=== PATIENT | female | born 2000 | race Caucasian/White ===

== ENCOUNTER 2022-06-07 19:44 | Outpatient (CLI) | payer BC, SELFPAY ==
[2022-06-07 19:49] VITALS: BP 118/74; PULSE 120; RESP 20; TEMP 36.2; O2SAT 98; BMI 30.4
[2022-06-07 20:15] VITALS: BP 118/77; PULSE 111; RESP 20; TEMP 36.8; O2SAT 98
[2022-06-07 20:50] LABS: Clue Cells <20% Clue Cells Seen (None Seen); Trichomonas No Trichomonas Seen (None Seen); Yeast No Yeast Seen (None Seen)
[2022-06-07 20:59] LABS: Appearance Urine Clear (Clear); Bilirubin Urine Negative (Negative); Blood Urine Negative (Negative); Color Urine Yellow (Yellow); Glucose Urine Negative (Negative); Ketones Urine Negative (Negative); Leukocyte Esterase Urine Negative (Negative); Nitrite Urine Negative (Negative); Protein Urine Negative (Negative); Specific Gravity Urine 1.015 (1.000-1.030); Urobilinogen Urine 0.2 (0.2-1.0)
[2022-06-07 21:00] LABS: Amnisure Rom* Negative
[2022-06-07 21:20] LABS: Fetal Fibronectin* Negative (Negative)
--- NOTE | 2022-06-07 21:58 | PC.OBNST ---
NST Note NST Note Start: 06/07/22 20:11 Freq: ONCE Status: Active Protocol: Document 06/07/22 21:53 [facility] (Rec: 06/07/22 21:54 [facility] [id number]) NST Note 3 Para (# of births) 0 EDC 08/23/22 Patient Presented with Complaint(s) of Contractions/cramping,Leaking fluid,Decreased movement Reactive Yes Appropriate for Gestational Age Yes LAQUITA Jimenez Date 06/07/22 Reactive Yes Appropriate for Gestational Age Yes LAQUITA Figueredo Date 06/07/22 OB NST charge Yes The provider's electronic signature indicates the NST is reactive/appropriate for gestational age. *Note to provider: If an addendum is required, open the patient's chart and click on the note under the Nurse/Allied Health tab.
== END 2022-06-07 21:45 | disposition home or self-care (01) ==
LOC: OB OUT 20:10 → OB 20:53
PROVIDERS: Visit Provider Family Medicine
DX: Z34.90 Encounter for supervision of normal pregnancy, unspecified, unspecified trimester (principal)
CPT/HCPCS: 59025; 81003; 84112; 87210; 99213

== ENCOUNTER 2025-02-16 20:59 | Emergency (ER) | payer BC, SELFPAY ==
--- NOTE | 2025-02-16 21:02 | ED_ITS ---
HPI - General Adult General Chief complaint: Nausea/Vomiting Stated complaint: vomiting, 6 wks preg Time Seen by Provider: 02/16/25 21:01 History of Present Illness HPI narrative: 24-year-old G4 P 1021 at approximately 6 weeks gestation who presents today with nausea vomiting. No abdominal pain, no vaginal bleeding although did note some dark discharge yesterday but that resolved. No fever chills. Has not taken anything for symptoms. Patient has ondansetron at home but has not been using it because she was not sure if it would be safe during . Related Data Home Medications ?Medication ?Instructions ?Recorded ?Confirmed UIF-szev-WM-omega 3-fat com #1 27 cap PO DAILY 06/07/22 mg-1 mg-300 mg capsule bupropion HCl 150 mg 24 hr tablet, 150 mg PO DAILY 02/16/25 02/16/25 extended release ondansetron 8 mg disintegrating 8 mg PO Q8H PRN nausea/vomiting 02/16/25 02/16/25 tablet Allergies Allergy/AdvReac Type Severity Reaction Status Date / Time amoxicillin Allergy Verified 02/16/25 21:06 Penicillins Allergy Verified 02/16/25 21:06 [facility] PFS Social History Smoking Status: Never smoker Do you use any of these nicotine containing products: None Second hand tobacco smoke exposure: No How often do you have a drink containing alcohol: never AUDIT-C Alcohol total score: 0 Non-prescribed substance use: denies use Exam Narrative: Exam Narrative: General: Well-developed and well-nourished, no acute distress Head: Atraumatic and normocephalic Eyes: Pupils are equal reactive, extraocular motions intact, conjunctiva clear ENT: External nose and ears are normal, posterior pharynx without erythema or exudate Neck: No midline cervical tenderness, full spontaneous range of motion the neck, trachea midline, no adenopathy Heart: Regular rate and rhythm no murmurs or thrills Lungs: Clear to auscultation bilaterally without wheezes or crackles Abdomen: Soft, nontender, nondistended with active bowel sounds Musculoskeletal: No tenderness, deformity, or edema Neurologic: Awake, alert, and oriented x3, no gross focal neurologic deficits, cranial nerves intact as tested Psych: Mood and affect are appropriate Skin: No rashes Const: Vital Signs, click to edit/add: Vital Signs - 24 hr 02/16/25 21:08 Temperature 97.8 F Pulse Rate [Pulse Oximeter] 80 Respiratory Rate 16 Blood Pressure [Ri ght Upper Arm] 139/90 H Pulse Oximetry 98 Oxygen Delivery Me thod Room Air Course Course ED Course: Reviewed emergency department visit from February 08 which was for back pain, at that time had an ultrasound that demonstrated an intrauterine gestational sac, quantitative hCG 6404. Repeat beta hCG on February 1107. Patient presents today with nausea vomiting, also some loose stools earlier this morning. She is concerned because she has not had much urine out today and has been vomiting fairly consistently. She denies chest pain, fever, chills, abdominal pain. No vaginal bleeding or discharge, noticed a little bit of brown discharge yesterday but that resolved. No urinary symptoms. On exam here, patient is awake alert, pleasant, vital is stable, no abdominal tenderness. Patient has a verified intrauterine and so no indication for ultrasound today. Labs are ordered along with fluids, Zofran, and Pepcid. Reevaluation(s) Time of Reevaluation #1: 21:52 Reevaluation #1: Labs independently interpreted by me, urinalysis without evidence for infection but 4+ ketones, additional fluids are ordered. Time of Reevaluation #2: 23:26 Reevaluation #2: Beta-hCG is 57,846. Updated patient with this finding, patient is stable for discharge. Vital Signs Vital signs: Initial Vital Signs Temperature 97.8 F 02/16/25 21:08 Temperature Source Temporal Artery Scan 02/16/25 21:08 Pulse Rate 80 02/16/25 21:08 Respiratory Rate 16 02/16/25 21:08 Blood Pressure 139/90 H 02/16/25 21:08 Blood Pressure Mean 106 H 02/16/25 21:08 Pulse Oximetry 98 02/16/25 21:08 Oxygen Delivery Method Room Air 02/16/25 21:08 Vital Signs Temperature 97.8 F 02/16/25 21:08 Pulse Rate 80 02/16/25 21:08 Respiratory Rate 16 02/16/25 21:08 Blood Pressure 139/90 H 02/16/25 21:08 Pulse Oximetry 98 02/16/25 21:08 Oxygen Delivery Method Room Air 02/16/25 21:08 Temperature 97.8 F 02/16/25 21:08 Pulse Rate 80 02/16/25 21:08 Respiratory Rate 16 02/16/25 21:08 Blood Pressure 139/90 H 02/16/25 21:08 Pulse Oximetry 98 02/16/25 21:08 Oxygen Delivery Method Room Air 02/16/25 21:08 Medications Administered Medications: Discontinued Medications Generic Name Dose Route Start Last Admin Trade Name Oli PRN Reason Stop Dose Admin Famotidine 20 mg 02/16/25 21:16 02/16/25 21:32 Famotidine 10 Mg/Ml Inj IVP 02/16/25 21:17 20 mg ONCE ONE Administration Sodium Chloride 1,000 mls @ 1,000 mls/hr 02/16/25 21:30 02/16/25 21:32 0.9 % Sodium Chloride 1000 Ml IV 02/16/25 22:29 1,000 mls/hr .Q1H HAYLEY Administration Lactated Ringer's 1,000 mls @ 1,000 mls/hr 02/16/25 21:55 02/16/25 22:00 Lactated Ringers 1000 Ml IV 02/16/25 22:54 Infused .Q1H HAYLEY Infusion Ondansetron HCl 4 mg 02/16/25 21:16 02/16/25 21:32 Ondansetron 2 Mg/Ml Inj IVP 02/16/25 21:17 4 mg ONCE ONE Administration Medical Decision Making Lab Data Labs: Lab Results 02/16/25 02/16/25 02/16/25 Range/Units 21:17 21:40 22:13 Sodium 136 (135-149) mmol/L Potassium 3.9 (3.6-5.1) mmol/L Chloride 102 (96-114) mmol/L Carbon Dioxide 20 (20-32) mmol/L Anion Gap 14 (7-15) mEq/L BUN 15 (5-24) mg/dL Creatinine 0.7 (0.5-1.5) mg/dL Estimated Creat Clear 129.51 Estimated GFR 124 ml/min Glucose 92 (60-115) mg/dL Calcium 9.6 (8.4-10.6) mg/dL Magnesium 1.8 (1.5-2.6) mg/dL HCG, Quant 90400.00 mIU/mL Urine Color Yellow (Yellow) Urine Appearance Cloudy A (Clear) Urine pH 6.0 (5.0-8.5) Ur Specific [place] >= 1.030 (1.000-1.030) Urine Protein 1+ A (Negative) Urine Glucose (UA) Negative (Negative) Urine Ketones 4+ A (Negative) Urine Blood Trace-lysed A (Negative) Urine Nitrite Negative (Negative) Urine Bilirubin 1+ A (Negative) Urine Urobilinogen 0.2 (0.2-1.0) Ur Leukocyte Esterase Negative (Negative) Urine RBC 2-5 A (0-2) Urine WBC 2-5 (0-5) Ur Squamous Epith Cells Moderate A (None-Few) Amorphous Sediment Few A (None) Urine Bacteria Moderate A (None) Urine Mucus Moderate A (None) Lab Acknowledgement Test Added Discharge Plan Discharge Clinical Impression: Nausea and vomiting during Patient Disposition: Home, Self-Care Instructions: Nausea and Vomiting in (ED) Additional Instructions: Frequent small meals Take Zofran as needed for nausea vomiting Follow-up with your superintendent maintenance airports or Women's Health provider this week or next week Your beta hCG today is 57,846 Activity Level: Activity as Tolerated Discharge Diet: Regular Prescriptions: No Action ondansetron 8 mg tablet,disintegrating 8 mg PO Q8H PRN (Reason: nausea/vomiting) bupropion HCl 150 mg tablet extended release 24 hr 150 mg PO DAILY OUB-tgco-OT-omega 3-fat com #1 27-1-300 mg capsule PO DAILY Follow Up/Referrals: Provider,Not a Local [Primary Care Provider] - Stand Alone Forms: MyHealth Info Instructions
--- OUTSIDE RECORDS SUMMARY | 2025-02-16 21:02 | XMS_ITS | Encounter Summary ---
Author Organization [facility] Address [address] [place] [address]. [place] [address] Care Team Providers Care Scale Reclamation Tender Name Role Phone Dakotah Winslow MD Primary Care Provider [phone] Marlyn Brown MD Primary Care Provider Unavailable April Guzman MD Primary Care Provider [phone] Que Monteiro MD Unavailable Unavaila ble Que Monteiro MD Unavailable Unavaila ble No Ref-Primary, Physician Primary Care Provider Gynecology, [facility] Obstetrics & Primary C are Provider Unavailable No Ref-Primary, Physician Primary Care Provider [facility] Primary Care Provider + Reason for Visit * Reason Onset Date Comments Outpatient 11/11/2014 iop Other Encounter Details Date Type Department Care Team (Late st Contact Info) Description 11/11/2014 Telephone [facility] Intake [address] [place] [address] Generic Behavioral IntakeMD Outpatient (iop); Social History Tobacco Use Types Packs/Day Years Used Date Smoking Tobacco: Never Assessed Comments No Sex and Gender Information Value Date Recorded Sex Assigned at Not on file Legal Sex Female 4:25 AM INSULATOR HELPER Gender Identity Not on file Sexual Orientation Not on file documented as of this encounter Miscellaneous Notes * Telephone Encounter - Glory Tam - 11/26/2014 12:33 PM CST ----- Message from Ruby Lau RN sent at 11/26/2014 12:23 PM INSULATOR HELPER ----- Regarding: Take off wait list, referral no longer interested Please take off wait list, no longer interested, going to [facility]. LATOR HELPER * Telephone Encounter - Sheila Trivedi - 11/11/2014 10:15 AM CST recvd order from dr coronado/4A for referral to [facility] IOP; completed. LATOR HELPER documented in this encounter Plan of Treatment Not on file documented as of this encounter Visit Diagnoses Not on filedocumented in this encounter Additional Health Concerns Infection Onset Date Last Indicated Resolved Time Influenza 11/06/2023 11/06/2023 11/13/2023 11:3 9 PM INSULATOR HELPER Rule Out COVID-19 08/05/2024 08/05/2024 08/06/2024 11:55 AM CDT documented as of this encounter Care Teams Scale Reclamation Tender Relationship Specialty Start Date End Date Dakotah Winslow MD [place] [id number] [place] [address] PCP - General Family Practice 10/29/13 07/25/16 Marlyn Brown MD [place] [id number] [place] [address] PCP - General Pediatrics 07/26/16 08/27/16 April Guzman MD [address] [place] [address] PCP - General sterilization specialist 08/28/16 07/18/19 Que Monteiro MD PCP - Assigned PCP 06/30/17 01/06/19 No Ref-Primary, Physician PCP - General 07/19/19 12/26/21 GynecologySis Obstetrics & PCP - General sterilization specialist 12/27/21 02/12/23 No Ref-Primary, Physician PCP - General 11/06/23 02/07/[address] [address] PCP - General 02/08/25 Que Monteiro MD Assigned PCP 06/30/17 05/28/20 documented as of this encounter
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
--- OUTSIDE RECORDS SUMMARY | 2025-02-16 21:02 | XMS_ITS | Encounter Summary ---
Author Organization [facility] Address [address] [place] [address]. [place] [address] Care Team Providers Care Midwife Practitioner Name Role Phone Marlyn Brown MD Primary Care Provider Unavailable April Guzman MD Primary Care Provider Que Monteiro MD Unavailable Unavaila ble Que Monteiro MD Unavailable Unavaila ble No Ref-Primary, Physician Primary Care Provider GynecologySis Obstetrics & Primary C are Provider Unavailable No Ref-Primary, Physician [facility] + Reason for Visit * Reason Onset Date Comments MH/CD Inpatient 08/20/2016 Encounter Details Date Type Department Care Team ([facility] st Contact Info) Description 08/20/2016 Telephone [facility] Behavioral Health Intake [address] [place] [address] Generic, Behavioral Intake, MH/CD Inpatient Social History Tobacco Use Types Packs/Day Years Used Date Smoking Tobacco: Former Alcohol Use Standard Drinks/Week Comments No 0 (1 standard drink = 0.6 oz pur e alcohol) in past Comments No Sex and Gender Information Value Date Recorded Sex Assigned at Not on file Legal Sex Female 4:25 AM PLASTICS PLATER Gender Identity Not on file Sexual Orientation Not on file documented as of this encounter Miscellaneous Notes * Telephone Encounter - KimberlyNéstor dailey - 08/20/2016 11:22 AM CDT [facility] pt [facility]. B: pt admitted to staff she was si w/ no cont for safety. Pt making statements she does not Want to live, not divulging precipitators or stressors. Dad bringing pt to er. Pt has hx etoh and mj use, last Use Saturday 08/18. [facility] for [facility] need. documented in this encounter Plan of Treatment Not on file documented as of this encounter Visit Diagnoses Not on filedocumented in this encounter Additional Health Concerns Infection Onset Date Last Indicated Resolved Time Influenza 11/06/2023 11/06/2023 11/13/2023 11:3 9 PM PLASTICS PLATER Rule Out COVID-19 08/05/2024 08/05/2024 08/06/2024 11:55 AM CDT documented as of this encounter Care Teams Midwife Practitioner Relationship Specialty Start Date End Date Marlyn Brown MD PCP - General Pediatrics 07/26/16 08/27/16 [place] [address] PCP - General tier in 08/28/16 07/18/19 Que Monteiro MD PCP - Assigned PCP 06/30/17 01/06/19 No Ref-Primary, Physician PCP - General 07/19/19 12/26/21 GynecologySis Obstetrics & PCP - General tier in 12/27/21 02/12/23 No Ref-Primary, Physician PCP - General 11/06/23 02/07/[address] [address] PCP - General 02/08/25 Que Monteiro MD Assigned PCP 06/30/17 05/28/20 documented as of this encounter
--- OUTSIDE RECORDS SUMMARY | 2025-02-16 21:02 | XMS_ITS ---
Author Organization [facility] Address [address] [place] [address] Care Team Providers Care Billet Shearer Name Role Phone None, No PCP Primary Care Provider Nino Chavez [phone] Encounters Encounter Location Date Provider Diagnosis [facility] [address] [place] [address] 01/04/2025 Nino Acosta Plan Of Treatment Next Appt Details Provider Name:Nanci Juliaclaire Fauzia cole, 02/22/2025 01:00:00 PM, [address] [place], [address], Provider Name:Nancixiang Crum Fauzia cole, 02/22/2025 01:30:00 PM, [address] [place], [address], Progress Notes * Twyla ELENAeDOB:[birth year] (24 yo F)Acc No.[id number]:01/04/2025 Patient: Tiana BRITO :2000 A ge:24 Y S ex:Female Address:[address] [place] [address] * true * Date: Generated for Printi ng/Faxing/eTransmitting on: 0 02/16/2025 09:02 PM CDT
--- OUTSIDE RECORDS SUMMARY | 2025-02-16 21:02 | XMS_ITS | Encounter Summary ---
Author Organization [facility] Address [address] [place] [address] Care Team Providers Care Car Repairer Name Role Phone Needs Pcp, Assignment Primary Care Provider [phone] Reason for Visit * Reason Comments Concerns Encounter Details Date Type Department Care Team (Late st Contact Info) Description 02/08/2025 Nurse Triage [facility] [address] Obstetrics/Gynecology [address] [place] [phone] [place] [address] [place] [address] Concerns Social History Tobacco Use Types Packs/Day Years Used Date Smoking Tobacco: Former Smokeless Tobacco: Current Alcohol Use Standard Drinks/Week Comments No 0 (1 standard drink = 0.6 oz pur e alcohol) Depression Answer Date Recor ded Last EPDS Total Score 6 12/12/2024 Last EPDS Self Harm Result Not on file 12/12 Comments No Sex and Gender Information Value Date Recorded Sex Assigned at Not on file Legal Sex Female 6:09 AM CDT Gender Identity Not on file Sexual Orientation Not on file 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 Per patient report she had POSITIVE at home UPT on 01/30/25 after missed menses. She had irregular bleeding throughout the month of December, last episode started 01/01/25. Patient states for past week she has been experiencing moderate shooting pains in her shoulder and severe lower back pain, in addition to one-sided cramping in RLQ of abdomen. Over the past week the pain has becoming increasingly worse. Currently shoulder pain rated 6-7/10 and back pain 10/10. Tylenol not effective, some improvement in back pain if someone is providing constant massage. Patient also notes intermittent dizziness with position changes or bending over for past couple weeks. Usually brief and resolves on own. Denies vaginal bleeding, severe dizziness, or fever/chills. Reviewed pertinent medical history (as relates to the call): Yes Reviewed pertinent medications (as relates to the call): Yes Reason for Disposition Shoulder pain Protocols used: - Abdominal Pain Less Than 20 Weeks [id number] documented in this encounter Plan of Treatment Upcoming Encounters Date Type Department Care Team (Late st Contact Info) Description 02/18/2025 9:00 AM CDT Appointment [facility] Obstetrics/Gynecology [address] [facility] [place] [address] Nurse Intake 4, P6500 Ob 02/26/2025 1:45 PM CDT Appointment [facility] [address] Obstetrics/Gynecology [address] [place] [address] Peri Wells, EKG/ECG TECHNICIAN, CNM [address] [place] [address] 03/22/2025 1:00 PM CDT Appointment [facility] [facility]SLIVER LAP TENDER [address] [facility], [address] [place] [address] [place] [address] [place] [phone] documented as of this encounter Visit Diagnoses Not on filedocumented in this encounter Care Teams Car Repairer Relationship Specialty Start Date End Date Needs Pcp, [place] [address] PCP - General 09/28/16 documented as of this encounter
--- OUTSIDE RECORDS SUMMARY | 2025-02-16 21:02 | XMS_ITS ---
Author Organization [facility] Former[facility] Address [address] [place] [address] Care Team Providers Care Erp Project Manager Name Role Phone None, No PCP Primary Care Provider UnavailNino Baker Unavailable [phone] Nanci Lynn Unavailable Results Component Value Reference Range Notes HEMOGLOBIN A1c Reviewed date:01/05/2025 08:39:51 AM Interpretation: Performing Lab:CB, [facility] [id number] [facility], [id number] Pavel Ervin Notes/Report: HEMOGLOBIN A1c 5.3 <5.7 % of total Hgb For the purpose of screening for the presence of diabetes: <5.7% Consistent with the absence of diabetes 5.7-6.4% Consistent with increased risk for diabetes (prediabetes) > or =6.5% Consistent with diabetes This assay result is consistent with a decreased risk of diabetes. Currently, no consensus exists regarding use of hemoglobin A1c for diagnosis of diabetes in children. According to [place] Diabetes Association (ADA) guidelines, hemoglobin A1c <7.0% represents optimal control in non- diabetic patients. Different metrics may apply to specific patient populations. Standards of Medical Care in Diabetes(ADA). T4, Free (IH) Reviewed date:01/05/2025 12:08:39 PM Interpretation: Performing Lab: Notes/Report: Access 2 ([id number])[facility] T3, Free ([facility]) Reviewed date:01/05/2025 12:08:25 PM Interpretation: Performing Lab: Notes/Report: Access 2 ([id number]), [place] [facility] TSH ([facility]) Reviewed date:01/05/2025 12:09:06 PM Interpretation: Performing Lab: Notes/Report: Access 2 ([id number]), [facility] Medications Medication SIG (Take, Route, Frequency, Duration) Notes Start Date End Date Status NIFEdipine ER Osmotic Release 30 MG TAKE 1 TABLET BY MOUTH EVERY DAY Oral for 90 Days Not-Taking buPROPion HCl ER (XL) 150 MG Oral for 30 Days Active LORazepam 0.5 MG TAKE 0.5-1 TABLETS (0.25-0.5 MG) BY MOUTH 2 TIMES DAILY IF NEEDED FOR ANXIETY. Oral for 7 Days Active Ondansetron 8 MG Oral for 7 Days Active Ocella 3-0.03 MG 1 tablet Orally Once a day for 90 days 01/04/2025 Active Aviane 0.1-20 MG-MCG 1 tablet Orally Onc e a day for 90 days 07/15/2024 Active Alclometasone Dipropionate 0.05 % 1 application Externally Twice a day Not-Takin g metroNIDAZOLE 500 MG TAKE 1 TABLET (500 MG) BY MOUTH TWO TIMES A DAY FOR 7 DAYS. Oral for 7 Days Not-Taking Nitrofurantoin Monohyd Macro 100 MG TAKE 1 CAPSULE (100 MG) BY MOUTH TWO TIMES A DAY. Oral for 7 Days Not-Takin g Encounters Encounter Location Date Provider Diagnosis [facility] [id number] [place] [phone] 01/04/2025 Nanci Guzman Abnormal uterine bleeding N93.9 Assessments Encounter Date Diagnosis (ICD Code) Assessment Notes Treatment Notes Treatment Clinical Notes Section Notes 01/04/2025 Abnormal uterine bleeding (ICD-10 - N93.9) Plan Of Treatment Next Appt Details Provider Name:Nanci cole, 02/22/2025 01:00:00 PM, [address] [place], [address], Provider Name:Nanci cole, 02/22/2025 01:30:00 PM, [address] [place], [address], Progress Notes * Sabas ELENAOB:[birth year] (24 yo F)Acc No.[id number]:01/04/2025 Patient: Tiana BRITO Provider: Gracia Guzman MD :2000 A ge:24 Y S ex:Female Date:01/04/2025 Address:[address] [place] [address] [address] [place], [id number] Pcp:No PCP None Subjective: * Chief Complaints: * * Medical History: * Medications: T aking Aviane 0.1-20 MG-MCG Tablet 1 tablet Orally Once a day , Taking buPROPion HCl ER (XL) 150 MG Tablet Extended Release 24 Hour Oral , Taking LORazepam 0.5 MG Tablet TAKE 0.5-1 TABLETS (0.25-0.5 MG) BY MOUTH 2 TIMES DAILY IF NEEDED FOR ANXIETY. Oral , Taking Ondansetron 8 MG Tablet Disintegrating Oral , Taking Ocella 3-0.03 MG Tablet 1 tablet Orally Once a day , Not-Taking Alclometasone Dipropionate 0.05 % Cream 1 application Externally Twice a day , Not-Taking metroNIDAZOLE 500 MG Tablet TAKE 1 TABLET (500 MG) BY MOUTH TWO TIMES A DAY FOR 7 DAYS. Oral , Not-Taking Nitrofurantoin Monohyd Macro 100 MG Capsule TAKE 1 CAPSULE (100 MG) BY MOUTH TWO TIMES A DAY. Oral , Not-Taking NIFEdipine ER Osmotic Release 30 MG Tablet Extended Release 24 Hour TAKE 1 TABLET BY MOUTH EVERY DAY Oral Objective: * Vitals: Assessment: * Assessment: 1. A bnormal uterine bleeding - N93.9 (Primary) Plan: * Treatment: Value Reference Range H EMOGLOBIN A1c 5.3 <5.7 - % of total Hg b * Your hgba1c was normal ?LAB: TSH (IH) (Collection Date & Time - 01/05/2025 11:54 AM)* Value Reference Range T SH3 1.53 0.45 to 5.33 - uIU/m L * Your TSH is normal ?LAB: T4, Free (IH) (Collection Date & Time - 01/05/2025 11:56 AM)* Value Reference Range F ree T4 0.77 0.61 to 1.12 - ng/dL * Your free t4, one of the oth er thyroid hormones was normal ?LAB: T3, Free (IH) (Collection Date & Time - 01/05/2025 11:56 AM)* Value Reference Range F ree T3 3.4 2.5 to 3.9 - pg/mL * Your free t3, one of the thy roid hormones, was normal * Procedure Codes: 8 4443 ASSAY THYROID STIM HORMONE - IH, 51464 FREE ASSAY (FT-3) - IH, 77865 ASSAY OF FREE THYROXINE - IH * Images: Billing Information: * Visit Code: * Procedure Codes: 89155 ASSAY THYROID STIM HORMONE - IH. 42190 FREE ASSAY (FT-3) - IH. 68529 ASSAY OF FREE THYROXINE - IH. * Sign off status: Completed true * Provider: Gracia Guzman MD Date: 0 01/04/2025 Generated for Paulette freeman/Evans/Porter on: 0 02/16/2025 09:02 PM CDT
--- OUTSIDE RECORDS SUMMARY | 2025-02-16 21:02 | XMS_ITS | Encounter Summary ---
Author Organization [facility] Address [address] [place] [address]. [place] [address] Care Team Providers Care Metal Buildings Assembler Name Role Phone [facility] Primary Care Provider + Reason for Visit * Reason Comments Abdominal Pain Encounter Details Date Type Department Care Team (Late st Contact Info) Description 02/08/2025 9:48 AM CDT - 02/08/2025 12:33 PM CDT Emergency [facility] Emergency Dept [address] [place] [id number] [phone] Barbra Haji MD [facility] [address] [place], [place] [id number] Early stage of ; Acute bilateral low back pain without sciatica Discharge Disposition: Home or Self Care Social History Tobacco Use Types Packs/Day Years Used Date Smoking Tobacco: Every Day Cigarettes Vaping Device Smokeless Tobacco: Never Alcohol Use Standard Drinks/Week Comments No 0 (1 standard drink = 0.6 oz pur e alcohol) in past Rumsey Depression Scale Answer Date Recorded Last EPDS Total Score Not on file 08/08/2022 The thought of harming myself has occurred to me . Never 08/08/2022 Adolescent Education Answer Date Record ed Getting School Help Needed Not on file 08/20 Comments Yes Sex and Gender Information Value Date Recorded Sex Assigned at Not on file Legal Sex Female 4:25 AM [employer] Gender Identity Not on file Sexual Orientation Not on file documented as of this encounter Last Filed Vital Signs Vital Sign Reading Time Taken Comments Blood Pressure 127/85 02/08/2025 9:44 AM CDT Pulse 91 02/08/2025 9:44 AM CDT Temperature 36.3 C (97.3 F) 02/08/2025 9:44 AM CDT Respiratory Rate 18 02/08/2025 9:44 AM CDT Oxygen Saturation 100% 02/08/2025 9:44 AM CDT Inhaled Oxygen Concentration - - Weight 79.4 kg (175 lb 0.7 oz) 02/08/2025 9:44 A M CDT Height 175.3 cm (5' 9) 02/08/2025 9:44 AM CDT Body Mass Index 25.85 02/08/2025 9:44 AM CDT documented in this encounter Discharge Instructions * Discharge Instructions* Barbra Haji MD - 02/08/2025 12:03 PM CDT Your ultrasound showed gestational sac in the uterus, ruling out ectopic . It is too earlyto tell if this is a normal or not, follow- up with your CLEANING MANAGER for repeat ultrasound in several weeks. Your back pain is likely muscular, you can use ice, heat, stretching exercises, Tylenol and physical therapy and avoid ibuprofen * Attachments The following attachments cannot be sent through Care Everywhere. * Low Back Pain: Keep Moving: Video (Malay) * : Managing Back Pain: Video (Malay) documented in this encounter Medications at Time of Discharge albuterol (PROAIR HFA) 108 (90 BASE) MCG/ACT Inhaler Inhale 2 puffs into the lungs every 4 hours as needed for shortness of breath / dyspnea or wheezing 1 Inhaler 11/11/2017 benzocaine (AMERICAINE) 20 % external aerosolIndications : (spontaneous vaginal delivery) Apply to perineum four times daily as needed for pain 57 g 08/06/2022 docusate sodium (COLACE) 100 MG capsuleIndications : (spontaneous vaginal delivery) Take 1 capsule (100 mg) by mouth daily 30 capsule 08/06/2022 drospirenone-ethin yl estradiol (DAVID) 3-0.02 MG tablet Take 1 tablet by mouth daily at 2 pm. 01/22/2024 ferrous sulfate (FEROSUL) 325 (65 Fe) MG tabletIndications: (spontaneous vaginal delivery) Take 1 tablet (325 mg) by mouth daily 60 tablet 08/07/2022 ferrous sulfate (FEROSUL) 325 (65 Fe) MG tablet Take 325 mg by mouth daily (with breakfast) hydrocortisone, Perianal, (ANUSOL-HC) 2.5 % creamIndications:S VD (spontaneous vaginal delivery) Place rectally 3 times daily as needed for hemorrhoids 30 g 08/06/2022 ibuprofen (ADVIL/MOTRIN) 800 MG tabletIndications: (spontaneous vaginal delivery) Take 1 tablet (800 mg) by mouth every 6 hours as needed for other (cramping) 40 tablet 1 08/06/2022 labetalol (NORMODYNE) 100 MG tabletIndications: (spontaneous vaginal delivery),Gestatio nal hypertension, antepartum Take 1 tablet (100 mg) by mouth every 12 hours 90 tablet 08/07/2022 lanolin ointmentIndication s: (spontaneous vaginal delivery) Apply topically every hour as needed for other (sore nipples) 7 g 3 08/06/2022 Vit-Fe Fumarate-FA ( MULTIVITAMIN W/IRON) 27-0.8 MG tablet Take 1 tablet by mouth daily documented as of this encounter ED Notes * Barbra Haji MD - 02/08/2025 10:16 AM CDT History Chief Complaint: Abdominal Pain HPI Tiana Melara is a 24 year old female G4, P1 who presents emergency department for evaluation of abdominal and back pain in . Patient reports that she had 3 menstrual periods in December. She took a test on 01/30 which was positive. She denies any vaginal bleeding since December. She reports that she has had back pain in her whole back from the upper to lower and right lowerquadrant pelvic pain for the past week. She does report a history of back pain but has never been this severe. She is not taking anything for the pain. Denies any trauma, falls, or heavy lifting. Pain does not radiate down the leg but the patient occasionally says her right leg gives out and her knee lenin. No fever, recent vomiting, diarrhea, or dysuria or hematuria or frequency. Advised to come here by the nurse line for rule out ectopic . Has had 2 prior D&Cs/elective abortions and has 1 child but never had abdominal and back pain like this with her prior Independent Historian: None Review of External Notes: Reviewed family medicine note from 12/16/2024, patient seen for vaginal bleeding but had a negative serum hCG Medications: albuterol (PROAIR HFA) 108 (90 BASE) MCG/ACT Inhaler benzocaine (AMERICAINE) 20 % external aerosol docusate sodium (COLACE) 100 MG capsule drospirenone-ethinyl estradiol (DAVID) 3-0.02 MG tablet ferrous sulfate (FEROSUL) 325 (65 Fe) MG tablet ferrous sulfate (FEROSUL) 325 (65 Fe) MG tablet hydrocortisone, Perianal, (ANUSOL-HC) 2.5 % cream ibuprofen (ADVIL/MOTRIN) 800 MG tablet labetalol (NORMODYNE) 100 MG tablet lanolin ointment Vit-Fe Fumarate-FA ( MULTIVITAMIN W/IRON) 27-0.8 MG tablet Past Medical History: Past Medical History: Diagnosis Date Asthma Depression Depressive disorder Eczema Hypertension 07/05/2022 PTSD (post-traumatic stress disorder) Suicidal ideation 11/04/2015 Past Surgical History: Past Surgical History: Procedure Laterality Date DILATION AND CURETTAGE SUCTION 2015 TAB DILATION AND CURETTAGE SUCTION, TREAT MISSED , 1ST TRIMESTER wisdom teeth Bilateral Physical Exam Patient Vitals for the past 24 hrs: BP Temp Pulse Resp SpO2 Height Weight 02/08/25 0944 127/85 97.3 ??F (36.3 ??C) 91 18 100 % 1.753 m (5' 9) 79.4 kg (175 lb 0.7 oz) Physical Exam GENERAL: Awake, alert CARDIOVASCULAR: 2+ DP and TP pulses LUNGS: Breathing comfortably on room air MSK: No midline spinal tenderness, tender to palpation of paraspinal muscles in lumbar and thoracicregion ABDOMEN: Soft, mildly tender to palpation suprapubic region, no rebound or guarding EXTREMITIES: No peripheral edema NEURO: 5 out of 5 strength in bilateral hip, knee, and ankle flexion and extension Emergency Department Course Imaging: US OB 1st Trimester W Transvaginal W Doppler Final Result IMPRESSION: 1. Probable intrauterine gestation sac. No yolk sac or pole identified for definitive confirmation. Recommend follow-up ultrasound and hCG in 14 days or as clinically indicated. 2. No sonographic findings of ovarian torsion. Laboratory: Labs Ordered and Resulted from Time of ED Arrival to Time of ED Departure ROUTINE UA WITH MICROSCOPIC REFLEX TO CULTURE - Abnormal Result Value Color Urine Yellow Appearance Urine Slightly Cloudy (*) Glucose Urine Negative Bilirubin Urine Negative Ketones Urine Negative Specific [place] Urine 1.024 Blood Urine Negative pH Urine 6.5 Protein Albumin Urine 10 (*) Urobilinogen Urine Normal Nitrite Urine Negative Leukocyte Esterase Urine Negative Bacteria Urine Few (*) Mucus Urine Present (*) RBC Urine 2 WBC Urine 2 Squamous Epithelials Urine 22 (*) HCG QUANTITATIVE - Abnormal hCG Quantitative 6,404 (*) HEMOGLOBIN - Normal Hemoglobin 14.0 Procedures None Emergency Department Course & Assessments: Interventions: Medications acetaminophen (TYLENOL) tablet 1,000 mg (1,000 mg Oral $Given 02/08/25 1012) Assessments: Disposition: The patient was discharged. Impression & Plan Medical Decision Makin-year-old female who presents for evaluation of low back pain in the setting of . She has normal vital signs here. She has normal strength and sensation of lower extremities. No midline spinal tenderness or trauma or indication for any imaging of spine at this point. Abdomen was also benign. Given that she is , we did perform ultrasound which showed no evidence of ovarian torsion, an intrauterine gestational sac with no pole. Patient was notified of this, likely early , unclear viability at this point but she can follow-up with CLEANING MANAGER in several weeks for repeat ultrasound. No red flag symptoms for back pain and she can take Tylenol and use ice and heat forher back and follow-up with her doctors as an outpatient, return if worsening. Urinalysis showed julia evidence of infection. Diagnosis: ICD-10-CM 1. Early stage of Z34.90 2. Acute bilateral low back pain without sciatica M54.50 Discharge Medications: Discharge Medication List as of 02/08/2025 12:16 PM Barbra Haji MD 02/08/251922 * Sangeeta Guzman RN - 02/08/2025 9:42 AM CDT Pt called nurse triage and was sent ot the ED. She states that she is and found out on 01/30 she does not know how far along she is but states she had irregular and multiple menstrual cycles in December. She states that she is having some cramping, abdominal and back pain and shoulder pain,mostly on the right side. She was sent to the ED to r/o ectopic . Triage Assessment (Adult) Row Name 02/08/25 0942 Triage Assessment Airway WDL WDL Respiratory WDL Respiratory WDL WDL Cardiac WDL Cardiac WDL WDL documented in this encounter Plan of Treatment Not on file documented as of this encounter Procedures Procedure Name Priority Date/Time Associated Diagnosis Comments ROUTINE UA WITH MICROSCOPIC REFLEX TO CULTURE STAT 02/08/2025 10:58 AM CDT US OB 1ST TRIMESTER W TRANSVAGINAL W DOPPLER STAT 02/08/2025 10:57 AM CDT EXTRA TUBE STAT 02/08/2025 10:18 AM CDT EXTRA RED TOP TUBE STAT 02/08/2025 10 :18 AM CDT EXTRA BLUE TOP TUBE STAT 02/08/2025 1 0:18 AM CDT HEMOGLOBIN STAT 02/08/2025 10:18 AM CDT HCG QUANTITATIVE STAT 02/08/2025 10:18 AM CDT documented in this encounter Results * (ABNORMAL) UA with Microscopic reflex to Culture (02/08/2025 10:58 AM CDT) Color Urine Yellow Colorless, Straw, Light Yellow, Yellow 02/08/2025 11:21 AM CDT [facility] Appearance Urine Slightly Cloudy(A) Clear 02/08/2025 11:21 AM CDT [facility] Glucose Urine Negative Negative mg/dL 02/08/2025 11:21 AM CDT [facility] Bilirubin Urine Negative Negative 11:21 AM CDT [facility] Ketones Urine Negative Negative mg/dL 02/08/2025 11:21 AM CDT [facility] Specific [place] Urine 1.024 1.003 - 1.035 02/08/2025 11:21 AM CDT [facility] Blood Urine Negative Negative 02/08/2025 11:21 AM CDT LABORATORY pH Urine 6.5 5.0 - 7.0 02/08/2025 11:21 AM CDT [facility] Protein Albumin Urine 10(A) Negative mg/dL 02/08/2025 11:21 AM CDT [facility] Urobilinogen Urine Normal Normal mg/dL 02/08/2025 11:21 AM CDT LABORATORY Nitrite Urine Negative Negative 02/08/2025 11:21 AM CDT LABORATORY Leukocyte Esterase Urine Negative Negative 02/08/2025 11:21 AM CDT LABORATORY Bacteria Urine Few(A) None Seen /HPF 02/08/2025 11:21 AM CDT LABORATORY Mucus Urine Present(A) None Seen /LPF 02/08/2025 11:21 AM CDT [facility] RBC Urine 2 <=2 /HPF 02/08/2025 11:21 AM CDT LABORATORY WBC Urine 2 <=5 /HPF 02/08/2025 11:21 AM CDT LABORATORY Squamous Epithelials Urine 22(H) <=1 /HPF 02/08/2025 11:21 AM CDT LABORATORY Urine MID-STREAM URINE SPECIMEN / Unknown Non-blood Collection / Unknown 02/08/2025 10:58 AM CDT 02/08/2025 11:01 AM CDT Narrative LABORATORY - 02/08/2025 11:21 AM CDT Urine Culture not indicated us Barbra Haji MD LAB - URINE ORDERABLES Final Result LABORATORY [facility] [address] Lab (1st floor, no room number) [place] [address] * US OB 1st Trimester W Transvaginal W Doppler (02/08/2025 10:57 AM CDT) Anatomical Region Laterality Modality Abdomen/Pelvis Ultrasound 02/08/2025 10:5 7 AM CDT Impressions 02/08/2025 11:16 AM CDT IMPRESSION: 1. Probable intrauterine gestation sac. No yolk sac or pole identified for definitive confirmation. Recommend follow-up ultrasound and hCG in 14 days or as clinically indicated. 2. No sonographic findings of ovarian torsion. Narrative 02/08/2025 11:16 AM CDT EXAM: US OB 1ST TRIMESTER W TRANSVAGINAL W DOPPLER LOCATION: [facility] DATE: 02/08/2025 INDICATION: Abdominal and back pain. . Cramping. COMPARISON: No prior imaging for the current . TECHNIQUE: Transabdominal scans were performed. Endovaginal ultrasound was performed to better visualize the embryo. Spectral Doppler analysis of the adnexa was performed. FINDINGS: UTERUS: Probable intrauterine gestation sac with mean sac diameter of 0.4 cm which would correspond to an estimated gestational age of 5 weeks 0 days. No pole or yolk sac identified for definitive confirmation. RIGHT OVARY: Measures 2.1 x 2.7 x 1.9 cm. Normal with normal arterial and venous waveforms. LEFT OVARY: Measures 2.6 x 1.6 x 1.6 cm. Normal with normal arterial and venous waveforms. Procedure Note Dustin Cool MD - 02/08/2025 EXAM: US OB 1ST TRIMESTER W TRANSVAGINAL W DOPPLER LOCATION: [facility] DATE: 02/08/2025 INDICATION: Abdominal and back pain. . Cramping. COMPARISON: No prior imaging for the current . TECHNIQUE: Transabdominal scans were performed. Endovaginal ultrasound wasperformed to better visualize the embryo. Spectral Doppler analysis of theadnexa was performed. FINDINGS: UTERUS: Probable intrauterine gestation sac with mean sac diameter of 0.4cm which would correspond to an estimated gestational age of 5 weeks 0days. No pole or yolk sac identified for definitive confirmation. RIGHT OVARY: Measures 2.1 x 2.7 x 1.9 cm. Normal with normal arterial andvenous waveforms. LEFT OVARY: Measures 2.6 x 1.6 x 1.6 cm. Normal with normal arterial andvenous waveforms. IMPRESSION: 1. Probable intrauterine gestation sac. No yolk sac or poleidentified for definitive confirmation. Recommend follow-up ultrasound andhCG in 14 days or as clinically indicated. 2. No sonographic findings of ovarian torsion. us Barbra Haji MD IMG US ORDERABLES Final Resu lt * Extra Red Top Tube (02/08/2025 10:18 AM CDT) Hold Specimen [facility] 02/08/2025 11:31 AM CDT [facility] Blood STRUCTURE OF RIGHT UPPER LIMB / Unknown Venipuncture / Unknown 02/08/2025 10:18 AM CDT 02/08/2025 10:29 AM CDT Barbra Haji MD LAB - BLOOD ORDERABLES Final Result [facility] Lab [address] Lab (1st floor, no room number) [address] * Extra Blue Top Tube (02/08/2025 10:18 AM CDT) [facility] Signature Hold Specimen [facility] 02/08/2025 11:31 AM CDT LABORATORY Blood STRUCTURE OF RIGHT UPPER LIMB / Unknown Venipuncture / Unknown 02/08/2025 10:18 AM CDT 02/08/2025 10:29 AM CDT us Barbra Haji MD LAB - BLOOD ORDERABLES Final Result [facility] [address] Lab (1st floor, no room number) [address] * (ABNORMAL) HCG QUANTitative (blood) (02/08/2025 10:18 AM CDT) [facility] hCG Quantitative 6,404(H) <5 mIU/mL 02/09/20 10:58 AM CDT [facility] Comment: Adult: 0-5 mIU/mL for healthy non- person Neonates: Should be within normal ranges by 2 days after Blood STRUCTURE OF RIGHT UPPER LIMB / Unknown Venipuncture / Unknown 02/08/2025 10:18 AM CDT 02/08/2025 10:29 AM CDT Barbra Haji MD LAB - BLOOD ORDERABLES Final Result [facility] [address] Lab (1st floor, no room number) [place] [address] * Hemoglobin (02/08/2025 10:18 AM CDT) Hemoglobin 14.0 11.7 - 15.7 g/dL 02/08/2025 10:33 AM CDT LABORATORY Blood STRUCTURE OF RIGHT UPPER LIMB / Unknown Venipuncture / Unknown 02/08/2025 10:18 AM CDT 02/08/2025 10:29 AM CDT Barbra Haji MD LAB - BLOOD ORDERABLES Final Result Performing Organization Address City/[facility]/ZIP Co de Phone Number [facility] [address] Lab (1st floor, no room number) [place] [phone] documented in this encounter Visit Diagnoses Diagnosis Early stage of Acute bilateral low back pain without sciatica documented in this encounter Administered Medications Inactive Administered Medications - up to 3 most recent administrations Medication Order MAR Action Action Date Dose Rate Site acetaminophen (TYLENOL) tablet 1,000 mg 1,000 mg, Oral, ONCE, On Sat02/08/25 at 1010, For 1 dose, Maximum acetaminophen dose from all sources = 75 mg/kg/day not to exceed 4 gram $Given 02/08/2025 10:12 AM CDT 1,000 mg documented in this encounter Active and Recently Administered Medications Times are shown in CDT. Scheduled Medication Order 02/06/2025 02/07/2025 02/08/2025 acetaminophen (TYLENOL) tablet 1,000 mg (COMPLETED) 1,000 mg, Oral, ONCE, On Sat02/08/25 at 1010, For 1 dose, Maximum acetaminophen dose from all sources = 75 mg/kg/day not to exceed 4 gram 1012 ($Given - Provi nadir: Aminta Ojeda RN) documented in this encounter Care Teams Metal Buildings Assembler Relationship Specialty Start Date End Date [facility] [address] [place] [address] PCP - General 02/08/25 documented as of this encounter
--- OUTSIDE RECORDS SUMMARY | 2025-02-16 21:02 | XMS_ITS | Encounter Summary ---
Author Organization [place] Address [facility] [place] [address] Care Team Providers Care Management Analyst Name Role Phone No Ref-Primary, Physician Primary Care Provider Clinic, [facility] Primary Care Provider + Reason for Visit * Reason Onset Date Comments Call Back 03/03/2024 Encounter Details Date Type Department Care Team (Late st Contact Info) Description 03/03/2024 Telephone [facility] [id number] [place] [phone] Sunita Huerta PA-C [id number] [place] [phone] Call Back Social History Tobacco Use Types Packs/Day Years Used Date Smoking Tobacco: Every Day Cigarettes Vaping Device Smokeless Tobacco: Never Alcohol Use Standard Drinks/Week Comments No 0 (1 standard drink = 0.6 oz pur e alcohol) in past [place] Depression Scale Answer Date Recorded Last EPDS Total Score Not on file 08/08/2022 The thought of harming myself has occurred to me . 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 Lidocaine patches are OTC. * Telephone Encounter - Stefanie Will - 03/03/2024 4:11 PM CDT Patient Returning Call Reason for call: PATIENT REQUESTING A CALL BACK REGARDING MEDICATION THAT PROVIDER HAVEN'T SIGNED OFF ON YET . PHARMACY IS WAITING ON PROVIDER. Information relayed to patient: N/A Patient has additional questions: Yes What are your questions/concerns: YES Okay to leave a detailed message?: Yes at Cell number on file: Telephone Information: documented in this encounter Plan of Treatment Not on file documented as of this encounter Visit Diagnoses Not on filedocumented in this encounter Additional Health Concerns Infection Onset Date Last Indicated Resolved Time Rule Out COVID-19 08/05/2024 08/05/2024 08/06/2024 11:55 AM CDT documented as of this encounter Care Teams Management Analyst Relationship Specialty Start Date End Date No Ref-Primary, Physician PCP - General 11/06/23 02/07/25 [facility] [address] [place] [address] PCP - General 02/08/25 documented as of this encounter
--- OUTSIDE RECORDS SUMMARY | 2025-02-16 21:02 | XMS_ITS | Clinical Summary ---
[facility] Address [address] [place] [address] Care Team Providers Care Enrobing Machine Feeder Name Role Phone Needs Pcp, Assignment Primary Care Provider [phone] Source Comments You are receiving this document as you are listed as the primary care provider,follow-up provider, or the patient has been referred to you for consultation.This is in compliance with the Medicare andMedicaid EHR Incentive Program,which states Providers who transition their patient to another setting of careor provider of care or refers their patient to another provider of care shouldprovide summary care record for each transition of care or referral. SugarCRM Allergies Active Allergy Reactions Criticality Noted Date Comments Amoxicillin 07/03/2016 Miconazole Swelling,Edema,gener ali zed 06/01/2017 Mupirocin Rash Low 12/03/2016 Worsening erythema, blistering on skin with topical application. Naproxen Hives High 03/19/2021 Penicillins Hives High 09/25/2016 Medications * This document contains information received from the source organization and may not represent a complete record from that organization. Vit-Fe Fumarate-FA (/FOLIC ACID OR) Active ferrous sulfate 325 (65 Fe) MG tablet Take 1 Tablet (325 mg) by mouth two times a day with meals. Do not take at the same time as taking vitamin. 90 Tablet 3 2 Active Additional Information Patient not taking.Reported on 10/03/2022 Blood Pressure Monitoring (BLOOD PRESSURE CUFF)Indications: Elevated blood pressure reading without diagnosis of hypertension Use 1 Device two times daily as needed. 1 Each 2 Active Additional Information Patient not taking.Reported on 10/03/2022 NIFEdipine XL (PROCARDIA XL) 30 MG 24 hour release tabletIndications :Supervision of high risk in third trimester Take 1 Tablet (30 mg) by mouth daily. 90 Tablet 3 2 Active Additional Information Patient not taking.Reported on 07/26/2022 Norethindrone, Contraceptive, (ORTHO MICRONOR) 0.35 MG tabletIndications :Uses contraception Take 1 Tablet (0.35 mg) by mouth daily. 84 Tablet 4 2 Active Additional Information Patient not taking.Reported on 11/16/2022 Active Problems Problem Noted Date Diagnosed Date cardiac echogenic focus 04/06/2022 Encounter for supervision of normal first in first trimester 02/01/2022 Vapes nicotine containing substance 02/01/2022 Intractable headache 02/01/2022 Depression, major, recurrent, moderate 5 History of suicide attempt 07/19/2015 Resolved Problems Problem Noted Date Diagnosed Date Resolved Date Depression 08/16/2015 02/01/2022 Initiation of OCP (BCP) 06/13/2015 12/0 07/2021 Encounters Date Type Department Care Team Description 02/08/2025 Nurse Triage [facility] [address] Obstetrics/Gynecology [address] [place] [address] Yanique Torres MD Concerns from Last 3 Months Immunizations Immunization Administration Dates Next Due DTaP 02/07/2005, 1,2000,2000, 000 HepB Ped/Adol (0-18 yrs) 02/17/2001,2000,0 2000 Hib (ActHIB) 09/16/2001,2000,2000 ,2000 IPV (Polio) 02/07/2005,2000,2000 ,2000 MCV4 (Menactra) 07/01/2012 MMR 02/07/2005,05/20/2001 TDAP (BOOSTRIX) 07/01/2012 Td 06/01/2003 Varicella 05/20/2001 Family History Medical History Relation Name Comments Heart Disease Father Cancer, Breast Mother Heart Disease Maternal Grandfather Relation Name Status Comments Father Alive Mother Alive Maternal Grandfather Maternal Grandmother Alive Paternal Grandfather Paternal Grandmother Alive Sister Alive Social History Tobacco Use Types Packs/Day Years Used Date Smoking Tobacco: Former Smokeless Tobacco: Current Tobacco Cessation:Ready to Q uit: Not Asked; Counseling Given: Not Answered Alcohol Use Standard Drinks/Week Comments No 0 [...] file Not on file Not on file Last Filed Vital Signs Vital Sign Reading Time Taken Comments Blood Pressure 120/73 11/16/2022 9:49 AM DRAFTER ENGINEERING Pulse 80 11/16/2022 9:49 AM DRAFTER ENGINEERING Temperature 37.6 C (99.7 F) 02/15/2016 12:00 PM CDT Respiratory Rate 16 02/15/2016 12:00 PM CDT Oxygen Saturation - - Inhaled Oxygen Concentration - - Weight 75.8 kg (167 lb) 11/16/2022 9:49 AM DRAFTER ENGINEERING Height 175.3 cm (5' 9) 02/01/2022 1:04 PM CDT Body Mass Index 24.66 02/01/2022 1:04 PM CDT Plan of Treatment Upcoming Encounters Date Type Department Care Team (Late st Contact Info) Description 02/18/2025 9:00 AM CDT [facility] [address] [place] [address] Nurse Intake 4, [id number] Ob 02/26/2025 1:45 PM CDT Appointment [facility] [address] Obstetrics/Gynecology [address] [place] [phone] Peri Wells, GENERAL UTILITY MACHINE OPERATOR, CNM [address] [place] [phone] 03/22/2025 1:00 PM CDT Appointment [facility] [address], [address] [place] [address] [place] [address] [place] [address] Health Maintenance Due Date Last Done Comments Varicella (2 of 2 - 2-dose childhood series) 2004 05/20/2001 HPV Vaccine (1 - 3-dose series) 2015 Adult Preventive Visit 2018 DTaP/Tdap/Td (7 - Tdap) 07/01/2022 07/01/20 12, 02/07/2005, 06/01/2003, Additional history exists Chlamydia 02/01/2023 02/01/2022, 05/05, 06/28/2016, Additional history exists COVID-19 Vaccine ( season) 2024 Influenza (#1) 2024 Cervical Cancer Screening 02/01/2025 02/01/2022 Zoster/Shingles (1 of 2) 2050 HepB Completed 02/17/2001, 04/2000, 2000 Hib Completed 09/16/2001, 11/04, 2000, Additional history exists IPV (Polio) Completed 02/07/2005, 11/04, 2000, Additional history exists MCV4 Aged Out 07/01/2012 No longer eligi ble based on patient's age to complete this topic HIV Screening (Preventive Services) Completed 05/21/2022 Hep C Screening (Preventive Services) Completed 05/21/2022 HepA Aged Out No longer eligi ble based on patient's age to complete this topic Meningococcal B Aged Out No longer el igible based on patient's age to complete this topic Pneumococcal Aged Out No longer eligi ble based on patient's age to complete this topic Procedures Procedure Name Priority Date/Time Associated Diagnosis Comments HIV 1/2 AG/AB 4TH GEN Routine 05/21/2022 10:04 AM CDT Supervision of high risk in second trimester HEPATITIS C ANTIBODY, WITH REFLEX Routine 05/21/2022 10:04 AM CDT Supervision of high risk in second trimester CHLAMYDIA & GC (14 YEARS & OLDER) Routine 02/01/2022 1:47 PM CDT Encounter for supervision of normal first in first trimester CYTOLOGY (PAP) Routine 02/01/2022 1:47 PM CDT Screening for malignant neoplasm of cervix from Last 3 Months or Most Recently Relevant to Health Maintenance Results * HIV 1/2 Ag/Ab 4th Generation (05/21/2022 10:04 AM CDT) HIV 1/2 Antigen/Antib elizabeth (4th generation) Negative (Non Reactive) Negative (Non Reactive) 05/21/2022 4:05 PM CDT [facility] Comment:HIV-1 p24 Antigen an d HIV-1/HIV-2 Antibody not detected Blood Venipuncture / Unknown 05/21/2022 10:04 AM CDT 05/21/2022 10:04 AM CDT us Yanique Torres MD LAB_1 Final Result Performing Organization Address City/State/[facility] Co de Phone Number [facility] [address] * Hepatitis C Antibody, with Reflex (05/21/2022 10:04 AM CDT) Hepatitis C Antibody Negative (Non Reactive) Negative (Non Reactive) 05/21/2022 4:05 PM CDT [facility] Comment:Antibodies to HCV no t detected. Does not exclude the possiblity of exposure to HCV. Blood Venipuncture / Unknown 05/21/2022 10:04 AM CDT 05/21/2022 10:04 AM CDT us Yanique Torres MD LAB_1 Final Result [facility] [address] [place], [place] [address] * PAP Test (02/01/2022 1:47 PM CDT) Case Report Pap Case: [id number] Authorizing Provider: Zahraa Lei APRN, Collected: 02/01/2022 1347 MANAGER OF CASE MANAGEMENT Ordering Location: [facility] Received: 02/01/2022 1816 Services-CROP CONSULTANT First Screen: Nicole Sherwood CT (ASCP) Specimen: Pap Test, Routine, Cervix/Endocervix 02/09/2022 9:55 AM CDT [facility] Pap Specimen Adequacy Satisfactory for evaluation, endocervical/phillips sformation zone component absent. 02/09/2022 9:55 AM CDT [facility] Pap Interpretation (NILM) Negative for intraepithelial lesion or malignancy. 02/09/2022 9:55 AM CDT [facility] at 0955 CDT Pap Disclaimer The Pap test is a screening test designed to aid in the detection of cervical cancer and its precursor lesions. It is not a diagnostic procedure and should not be used as the sole means of detecting cervical cancer. Both false-positive and false-negative results may occur. 02/09/2022 9:55 AM CDT [facility] Gross Description The specimen is received in SurePath fixative and properly labeled. 1 Pap-stained SurePath slide is prepared. 02/09/2022 9:55 AM CDT [facility] Embedded Images 9:55 AM CDT [facility] Other Specimen Type ENTIRE ENDOCERVIX / Unknown 02/01/2022 1:47 PM CDT 02/01/2022 6:16 PM CDT Comment:LMP: Patient's last menstrual period was 11/16/2021. Zahraa Lei APRN, MANAGER OF CASE MANAGEMENT LAB PATHOLOGY Final Result [facility] [address] [place], [place] [address] * Chlamydia & GC (14 Years and Older) - Vagina (02/01/2022 1:47 PM CDT) Chlamydia Trachomatis STD Not Detected Not Detected 02/02/2022 1:40 PM CDT [facility] N. gonorrhoeae STD Not Detected Not Detected 02/02/2022 1:40 PM CDT [facility] Swab STD SPECIMEN FROM VAGINA / Unknown Non-blood Collection / Unknown 02/01/2022 1:47 PM CDT 02/01/2022 6:12 PM CDT Narrative [facility] - 02/02/2022 1:40 PM CDT Test performed by Photo Stylist Mediated Amplification (TMA). us Zahraa Lei APRN, MANAGER OF CASE MANAGEMENT LAB_1 Final Result [facility] [id number] [place] [address] from Last 3 Months or Most Recently Relevant to Health Maintenance Insurance [facility] [id number] [place] [id number] Care Teams Enrobing Machine Feeder Relationship Specialty Start Date End Date Needs Pcp, [place] [address] PCP - General 09/28/16
--- OUTSIDE RECORDS SUMMARY | 2025-02-16 21:03 | XMS_ITS | Patient Health Record ---
Author Organization [facility] Address [address] [place] [address] Care Team Providers Care Manufacturing Intern Name Role Phone None, No PCP Primary Care Provider UnavailNino Baker Unavailable [phone] Jt Carrie Unavailable [phone] Nikkie Holloway Unavailable [phone] Yuliana Godinez Unavailable [phone] Nanci Lynn Unavailable Allergies Allergen (clinical drug ingredient) Drug/Non Drug Allergy documented on EMR Reaction Allergy Type Onset Date Status Monistat 1 Combo Pack anaphylaxis Drug Allergy Active amoxicillin Amoxicillin rash Drug Allergy Act domo Penicillin rash Drug Allergy Active Results Component Value Reference Range Notes HEMOGLOBIN A1c Reviewed date:01/05/2025 08:39:51 AM Interpretation: Performing Lab:[facility], [facility] [id number] [facility] Hill[place]uelVbbv[place] Pavel Ervin Notes/Report: HEMOGLOBIN A1c 5.3 <5.7 [...] diagnosis of diabetes in children. According to [place] Diabetes Association (ADA) guidelines, hemoglobin A1c <7.0% represents optimal control in non- diabetic patients. Different metrics may apply to specific patient populations. Standards of Medical Care in Diabetes(ADA). T4, Free (IH) Reviewed date:01/05/2025 12:08:39 PM Interpretation: Performing Lab: Notes/Report: Access 2 ([id number]), [place] T3, Free (IH) Reviewed date:01/05/2025 12:08:25 PM Interpretation: Performing Lab: Notes/Report: Access 2 ([id number]), [place] TSH (IH) Reviewed date:01/05/2025 12:09:06 PM Interpretation: Performing Lab: Notes/Report: Access 2 ([id number]), [place] - Lab Reason For Referral Reason [facility] 01/20 Diagnosis 1 Low back pain (M54.5 0) Diagnosis 2 state (Z3 9.2) Referral Organization [facility] Referring Provider First Name Nanci Referring Provider Last Name Skyla bills Referring Provider Speciality Obstetrici an and razor grinder Referred Provider Specialty Physical The rapist General Notes Laura Lynn 01/04/2025 01:49:47 PM CHROME PLATER HELPER > lower back pain post , physical therapy referral [place] Clinical Notes Nic Palma 01/2025 02:29:10 PM > Referral made and faxed to [facility] using [phone] for phone and [phone] for [place] fax.Louie Chase 01/12/2025 11:23:54 AM > Lucian reached out for the first time this morning, have not heard back from pt yet Louie OCONNOR Chase 01/20/2025 09:57:08 AM > Pt is still not scheduled, Lucian has reached out multiple times, emailing pt Louie OCONNOR Chase 01/26/2025 01:11:36 PM > Letter sent to provider, Lucian has been unable to reach pt to schedule, pt will need new referral if wanting to be seen [facility] Referral Priority Routine Medications Medication SIG (Take, Route, Frequency, Duration) Notes Start Date End Date Status Aviane 0.1-20 MG-MCG 1 tablet Orally Onc [...] DAY. Oral for 7 Days Not-Takin g NIFEdipine ER Osmotic Release 30 MG TAKE [...] a day for 90 days 01/04/2025 Active Social History Tobacco Use: Social History Observation Description Date Details (start date - stop date) Current Smoker NA - NA Tobacco Use/Smoking Question Answer Notes Are you a current smoker Alcohol Screen (Audit-C) Question Answer Notes Did you have a drink containing alcohol in the p ast year? No Points 0 Interpretation Negative Tobacco use other than smoking: Question Answer Notes Are you an other tobacco user? Yes V ape Section Notes: Vape Vape Vape Vape Problems Problem Type SNOMED Code ICD Code Onset Dates Problem Status W/U Status Risk Notes Problem [id number] Abnormal uterine bleeding (N93.9) Active confirmed Vital Signs Blood pressure diastolic 80 mm Hg 01/04/2025 Height 67.5 in 01/04/2025 Blood pressure systolic 110 mm Hg 01/04/2025 Weight 176.4 lbs 01/04/2025 BMI 27.22 kg/m2 01/04/2025 Encounters Encounter Location Date Provider Diagnosis [address] [address] 07/15/2024 Yuliana Godinez Oral contraceptive prescribed Z30.011 and Counseling for initiation of control method Z30.[address] [address] 01/04/2025 Nanci Guzman Cyst of ovary, unspecified laterality N83.209 and Abnormal uterine bleeding N93.[address] [address] 01/04/2025 Nanci Guzman Abnormal uterine bleeding N93.9 [facility] [address] [facility] [address] [place], [place] [phone] 01/11/2025 Nanci Saldivartanesha [facility] [address] [place] [address] 01/04/2025 Nino Acosta [facility] [address] [facility] [address] [place], [place] [phone] 11/05/2024 Yuliana Herbert [facility] [address] [place] [address] [place] [address] 03/13/2024 Nikkie Amie [facility] [address] [place] [address] 02/25/2024 Carrie Waters Assessments Encounter Date Diagnosis (ICD Code) Assessment Notes Treatment Notes Treatment Clinical Notes Section Notes 07/15/2024 Oral contraceptive prescribed (ICD-10 - Z30.011) 07/15/2024 Counseling for initiation of control method (ICD-10 - Z30.09) 01/04/2025 Abnormal uterine bleeding (ICD-10 - N93.9) 01/04/2025 Cyst of ovary, unspecified laterality (ICD-10 - N83.209) 01/04/2025 Abnormal uterine bleeding (ICD-10 - N93.9) 01/04/2025 Other 1. Menorrhagia and irregular bleeding: hgba1c and thyroid testing 2. Repeat ultrasound in 8 weeks 3. Referral to PT due to back pain since 4. Change control at this time, will trial ocella 07/15/2024 Other Discussed R/B/A for all available control options. Will send in aviane OCP which is a lower dose pill and will hopefully eliminate her unwanted side effects. Rx x 1 year however patient to call with 3 month update if concerns. Plan Of Treatment Next Appt Details Provider Name:Nanci cole, 02/22/2025 01:00:00 PM, [address] [place], [address], Provider Name:Nanci cole, 02/22/2025 01:30:00 PM, [address] [place], [address], Insurance Providers Payer Name Payer Address Payer Phone Subscriber Number Group Number Insured Name Patient Relationship to Insured Coverage Start Date Coverage End Date [place] (Ins Bill) [address] [address] [place] [address] [id number] Tiana Etienne Self - patient is the insured Medical (General) History Medical History History ICD Code depression/ anxiety anemia bladder infections asthma Surgical History Surgery Date(Month/Year) wisdom teeth extraction
--- OUTSIDE RECORDS SUMMARY | 2025-02-16 21:03 | XMS_ITS | Encounter Summary ---
Author Organization [facility] Address [address] [place] [address]. [place] [address] Care Team Providers Care Cafeteria Clerk Name Role Phone [facility] Primary Care Provider + Encounter Details Date Type Department Care Team (Latest Contact Info) Description 02/08/2025 Travel Social History Tobacco Use Types Packs/Day Years Used Date Smoking Tobacco: Every Day Cigarettes Vaping Device Smokeless Tobacco: Never Alcohol Use Standard Drinks/Week Comments No 0 (1 standard drink = 0.6 oz pur e alcohol) in past [place] Depression Scale Answer Date Recorded Last EPDS Total Score Not on file 08/08/2022 The thought of harming myself has occurred to me . 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
--- OUTSIDE RECORDS SUMMARY | 2025-02-16 21:03 | XMS_ITS ---
Author Organization [facility] Address [address] [place] [address] Care Team Providers Care Pillow Cleaner Name Role Phone None, No PCP Primary Care Provider UnavailNino Baker Unavailable [phone] Nanci Lynn Unavailable REASON FOR VISIT symptoms worsened Encounters Encounter Location Date Provider Diagnosis [address] [place], [place] [phone] 01/11/2025 Nanci Guzman Plan Of Treatment Next Appt Details Provider Name:Nanci cole, 02/22/2025 01:00:00 PM, [address] [place], [address], Provider Name:Nanci Skyla cole, 02/22/2025 01:30:00 PM, [address] [place], [address], Progress Notes * ELENATwyla KUMAReDOB:[birth year] (24 yo F)Acc No.[id number]:01/11/2025 Patient: Tiana BRITO :2000 A ge:24 Y S ex:Female Address:[address] [place] [address] * true * Date: Generated for Printi ng/Faxing/eTransmitting on: 0 02/16/2025 09:03 PM CDT
--- OUTSIDE RECORDS SUMMARY | 2025-02-16 21:03 | XMS_ITS | Encounter Summary ---
Author Organization [facility] Address [address] [place] [address]. [place] [address] Care Team Providers Care Administrative And Program Specialist Name Role Phone [facility] Primary C are Provider Unavailable No Ref-Primary, Physician Primary Care Provider [facility], [facility] Primary Care Provider + Encounter Details Date Type Department Care Team (Late st Contact Info) Description 12/27/2021 Documentation Only INTERFACED REPORT Unknown, Provider Social History Tobacco Use Types Packs/Day Years Used Date Smoking Tobacco: Every Day Cigarettes Vaping Device Smokeless Tobacco: Never Alcohol Use Standard Drinks/Week Comments No 0 (1 standard drink = 0.6 oz pur e alcohol) in past Comments Yes Sex and Gender Information Value Date Recorded Sex Assigned at Not on file Legal Sex Female 4:25 AM SOLE SCRAPER Gender Identity Not on file Sexual Orientation Not on file COVID-19 Exposure Response Date Recorded In the last month, have you been in contact with someone who was confirmed or suspected to have Coronavirus / COVID-19? No / Unsure 12/27/2021 4:42 PM SOLE SCRAPER documented as of this encounter Plan of Treatment Not on file documented as of this encounter Visit Diagnoses Not on filedocumented in this encounter Additional Health Concerns Infection Onset Date Last Indicated Resolved Time Influenza 11/06/2023 11/06/2023 11/13/2023 11:3 9 PM SOLE SCRAPER Rule Out COVID-19 08/05/2024 08/05/2024 08/06/2024 11:55 AM CDT documented as of this encounter Care Teams Administrative And Program Specialist Relationship Specialty Start Date End Date GynecologyS[facility] Obstetrics & PCP - General animal rehabilitator 12/27/21 02/12/23 No Ref-Primary, Physician PCP - General 11/06/23 02/07/25 [facility] [address] [place] [phone] PCP - General 02/08/25 documented as of this encounter
--- OUTSIDE RECORDS SUMMARY | 2025-02-16 21:03 | XMS_ITS | Clinical Summary ---
Author Organization [facility] Address [address] [place] [id number] Care Team Providers Care Cook Fruit Name Role Phone Sis [facility] - Primary Care Provider Allergies Active Allergy Reactions Criticality Noted Date Comments Amoxicillin Hives 09/25/2016 Miconazole Edema 06/01/2017 Mupirocin Rash Low 12/03/2016 Worsening erythema, blistering on skin with topical application. Naproxen Hives 03/19/2021 Penicillins Hives 10/11/2019 Medications buPROPion (WELLBUTRIN XL) 150 mg Extended-Release tabletIndications: Anxiety and depression Take 1 Tablet (150 mg) by mouth once daily. 30 Tablet 5 5 Active LORazepam (ATIVAN) 0.5 mg tabIndications:Anx iety and depression Take 0.5-1 Tablets (0.25-0.5 mg) by mouth 2 times daily if needed for Anxiety. 15 Tablet 5 Active ondansetron (ZOFRAN ODT) 8 mg disintegrating tabletIndications: Nausea and vomiting, unspecified vomiting type Place 1 Tablet (8 mg) on the tongue every 8 hours if needed for Nausea/Vomi ting. 30 Tablet 5 Active ondansetron (ZOFRAN) 4 mg tabletIndications: Nausea and vomiting, unspecified vomiting type Take 1-2 Tablets (4-8 mg) by mouth every 8 hours if needed for Nausea/Vomi ting. 10 Tablet 02/12/20 25 Discontin ued(*Med complete/ Regimen complete/ Level of care change) Active Problems Problem Noted Date Diagnosed Date Anxiety and depression 08/27/2024 Anxiety 07/20/2024 Exercise-induced asthma 07/22/2017 Comments Yes Encounters Date Type Department Care Team Description 02/11/2025 1:45 PM CDT Orders Only [facility] [id number] [place] [id number] Lab 02/11/2025 1:15 PM CDT Telemedicine [facility] [address] [place] [address] Joan Reed PA Telehealth (Follow up ER visit) 02/11/2025 Travel 01/07/2025 Refill [facility] [id number] [place] [id number] Kervin Neri PA Refill Request (Bupropion/) 12/18/2024 1:45 PM [employer] Ancillary Procedure [facility] [address] [address] 12/18/2024 Travel 12/18/2024 Telephone [facility] [id number] [place] [id number] Kervin Neri PA Refill Request (pharmacy change) 12/16/2024 2:00 PM [employer] Office Visit [address] [address] Kervin Neri PA Follow Up (ED- 12/14/24) 12/16/2024 Travel 12/14/2024 8:32 AM [employer] - 12/14/2024 10:30 AM [employer] Emergency [facility] [address] [place] [address] Jordon Harris MD Nausea and vomiting, unspecified vomiting type (Primary Dx); Dysfunctional uterine bleeding Discharge Disposition: Home Self Care 12/14/2024 Travel from Last 3 Months Immunizations Immunization Administration Dates Next Due DTaP 02/07/2005, 1,2000,2000 ,2000 HIB PRP-T (ActHIB,Hiberix) 09/16/2001,2000 ,2000,2000 Hepatitis B (Peds) 02/17/2001,2000, 000 Inactivated Polio Vaccine 02/07/2005,2000, 2000,2000 MMR 02/07/2005,05/20/2001 Meningococcal Vaccine (Menactra) 07/01/2012 Td (Age >=7 Years) 06/01/2003 Tdap 07/01/2012 Varicella Vaccine 05/20/2001 Family History Medical History Relation Name Comments Good Health Daughter Kidney cancer Father spread to brai n, lungs, arm and legs Cardiomyopathy Maternal Grandfather 3 wks after covid-19 vaccination Good Health Maternal Grandmother Cancer-breast Mother + BRCA Fibromyalgia Mother Hypotension Mother Skin cancer Mother Thyroid Disease Mother mass - non-c ancerous Diabetes Paternal Grandmother Good Health Sister Relation Name Status Comments Daughter Alive Father Alive Maternal Grandfather Maternal Grandmother Alive Mother Alive Paternal Grandfather Paternal Grandmother Alive Sister Alive Social History Tobacco Use Types Packs/Day Years Used Date Smoking Tobacco: Former Cigarettes Q uit: 01/06/2017 Smokeless Tobacco: Never Tobacco Cessation:Counseling Given: Not Answered Alcohol Use Standard Drinks/Week Comments Not Currently 0 (1 standard drink = 0.6 oz pure alcohol) rare - maybe a couple of times a year PHQ-2 Answer Date Recorded PHQ-2 TOTAL SCORE 3 12/16/2024 Social Connections Answer Date Recorded Do you often feel lonely or isolated from those around you? 0 07/20/2024 Financial Resource Strain Answer Date R ecorded Difficulty of Paying Living Expenses 3 07/20/2024 Difficulty of Paying Living Expenses Not on file 07/20/2024 Food Insecurity Answer Date Recorded Do you worry your food will run out before you are able to buy more? 1 07/20/2024 Transportation Needs Answer Date Record ed Does lack of transportation keep you from medica l appointments? 1 07/20/2024 Does lack of transportation keep you from work, meetings or getting things that you need? 1 07/20/2024 Housing Stability Answer Date Recorded What is your housing situation today? 1 07/20/2024 Interpersonal Safety Answer Date Record ed Are you being hit, kicked, p ushed or yelled at (see row info)? No 12/14/2024 Interpersonal Safety Abuse 12 - 18 Not on file 12/14/2024 Interpersonal Safety Ambulatory Vulnerability No t on file 12/14/2024 Utilities Answer Date Recorded Do you have trouble paying f or utilities (for example, heat, electricity, water, phone)? 1 07/20/2024 Comments Yes Sex and Gender Information Value Date Recorded Sex Assigned at Not on file Legal Sex Female 5:42 AM [employer] Gender Identity Not on file Sexual Orientation Not on file Occupation Industry Job Start Date Job End Date [employer] Not on file Not on file Not on fi le Obstetrics History Para Term AB IAB SAB Ectopic Multiple Livin g Live Births 4 1 1 Date Outcome GA Total Labor Labor/2nd/3rd Weight Sex Type Anes PTL Ayse A1 A5 Name Clin IAB Current Last Filed Vital Signs Vital Sign Reading Time Taken Comments Blood Pressure 102/78 12/16/2024 2:06 PM [employer] Pulse 106 12/16/2024 2:06 PM [employer] Temperature 36.6 C (97.8 F) 12/14/2024 8:30 AM [employer] Respiratory Rate 17 12/14/2024 8:30 AM [employer] Oxygen Saturation 100% 12/16/2024 2:06 PM [employer] Inhaled Oxygen Concentration - - Weight 80.2 kg (176 lb 14.4 oz) 12/16/2024 2:06 PM [employer] Height 175.3 cm (5' 9) 12/14/2024 9:05 AM [employer] Body Mass Index 26.12 12/14/2024 9:05 AM [employer] Plan of Treatment Health Maintenance Due Date Last Done Comments HIV for age 15-65 2015 HPV series for age 9-26 (1 - 3-dose series) 2015 Chlamydia for age 16-24 2016 Hepatitis C screening for age 18-79 2018 Tetanus booster 07/01/2022 07/01/2012, 06/01/2003 COVID-19 vaccine series ( season) 2024 Influenza Vaccine (Season Ended) 2025 BMI (ht and wt on same day) for age 18+ 08/27/2025 08/27/2024, 07/20/2024, 07/29/2021, Additional history exists Depression screening for age 12+ 12/18/2025 12/18/2024, 12/16/2024, 07/20/2024 Pap test for age 21-65 07/21/2027 4 (Verified in Care Everywhere or Patient Record) RSV vaccine for adults or (1 - 1-dose 75+ series) 2075 Tdap Completed 07/01/2012 Pneumococcal series for age 6-49 Aged Out No longer eligible based on patient's age to complete this topic Procedures Procedure Name Priority Date/Time Associated Diagnosis Comments HCG BETA QUANT, Routine 02/11/2025 1:51 PM CDT Early stage of (HC) US PELVIS COMPLETE TA AND TV KALYAN 12/18/2024 2:17 PM [employer] Dysfunctional uterine bleeding TROPONIN T (HS) ONE TIME STAT 12/14/2024 9:15 AM [employer] HCG BETA QUANT, STAT 12/14/2024 9:15 AM [employer] BASIC METABOLIC PANEL STAT 12/14/2024 9:15 AM [employer] CBC W PLT NO DIFF STAT 12/14/2024 9:1 5 AM [employer] EKG 12 LEAD STAT 12/14/2024 8:54 AM [employer] URINALYSIS MICROSCOPIC STAT 12/14/2024 8:30 AM [employer] URINE STAT 12/14/2024 8:30 AM [employer] UA W/ SEDIMENT EXAM REFLEXED PER CRITERIA STAT 12/14/2024 8:30 AM [employer] from Last 3 Months Results * HCG BETA QUANT, (02/11/2025 1:51 PM CDT) Only the most recent of2 resultswithin the time period is included. HCG BETA QUANT,PREGNANC Y 19,070 mIU/mL 02/11/2025 11:01 PM CDT [facility] Blood BLOOD SPECIMEN / Unknown [facility] / Unknown 02/11/2025 1:51 PM CDT 02/11/2025 1:51 PM CDT Narrative [facility] - 02/11/2025 11:01 PM CDT Expected Value for Healthy Non- premenopausal women <5.3mIU/mL FOR GESTATIONAL ASSESSMENT-See Range Table Below Weeks of gestation hCG mIU/mL 3 weeks gestation (5.8 - 71.2) 4 weeks gestation (9.5 - 750) 5 weeks gestation (217 - 7138) 6 weeks gestation (158 - 31,795) 7 weeks gestation (3,697 - 163,563) 8 weeks gestation (32,065 - 149,571) 9 weeks gestation (63,803 - 151,410) 10 weeks gestation (46,509 - 186,977) 12 weeks gestation (27,832 - 210,612) 14 weeks gestation (13,950 - 62,530) 15 weeks gestation (12,039 - 70,971) 16 weeks gestation (9,040 - 56,451) 17 weeks gestation (8,175 - 55,868) 18 weeks gestation (8,099 - 58,176) Biotin supplements may cause clinically significant interference for this test assay. If interference is suspected, it is strongly recommended that biotin is discontinued for at least one week prior to retesting. us Joan BUTLER CHEMISTRY Final Resu lt [facility] [address] [place] [address], [place] * US PELVIS COMPLETE TA AND TV (12/18/2024 2:17 PM [employer]) Anatomical Region Laterality Modality Pelvis Ultrasound 12/18/2024 2:31 PM [employer] Impressions 12/18/2024 2:31 PM [employer] Unremarkable pelvic ultrasound. Dictated by Sylvain Mariee MD @ 12/18/2024 2:31:24 PM (Electronically Signed) Narrative 12/18/2024 2:31 PM [employer] For Patients: As a result of the Cures Act, medical imaging exams and procedure reports are released immediately into your electronic medical record. You may view this report before your referring provider. If you have questions, please contact your health care provider. INDICATION: Dysfunctional uterine bleeding.. TECHNIQUE: Ultrasound pelvis transabdominal and transvaginal for better assessment or to better visualize the endometrium. Real-time sonographic images with spectral and color Doppler imaging of the ovaries were obtained. COMPARISON: None. FINDINGS: Uterus: 9.3 x 4.1 x 5.0 cm. Normal echotexture of the myometrium. No masses. Endometrium: Transvaginal imaging was performed to better evaluate the endometrium. Endometrial thickness measures 8 mm. No sign of endometrial mass or fluid. Right ovary measures 2.9 x 1.7 x 2.4 cm and left ovary measures 5.0 x 3.4 x 3.9 cm. There is a 2.8 centimeter anechoic cyst in the left ovary, likely physiologic. Normal arterial and venous blood flow is demonstrated in both ovaries. Cul-de-sac: Minimal free fluid. Procedure Note Sylvain Mariee MD - 12/18/2024 For Patients: As a result of the Cures Act, medical imagingexams and procedure reports are released immediately into your electronicmedical record. You may view this report before your referring provider.If you have questions, please contact your health care provider. INDICATION: Dysfunctional uterine bleeding.. TECHNIQUE: Ultrasound pelvis transabdominal and transvaginal for better assessment orto better visualize the endometrium. Real-time sonographic images withspectral and color Doppler imaging of the ovaries were obtained. COMPARISON: None. FINDINGS: Uterus: 9.3 x 4.1 x 5.0 cm. Normal echotexture of the myometrium. Nomasses. Endometrium: Transvaginal imaging was performed to better evaluate theendometrium. Endometrial thickness measures 8 mm. No sign of endometrialmass or fluid. Right ovary measures 2.9 x 1.7 x 2.4 cm and left ovary measures 5.0 x 3.4x 3.9 cm. There is a 2.8 centimeter anechoic cyst in the left ovary,likely physiologic. Normal arterial and venous blood flow is demonstratedin both ovaries. Cul-de-sac: Minimal free fluid. IMPRESSION: Unremarkable pelvic ultrasound. Dictated by Sylvain Mariee MD @ 12/18/2024 2:31:24 PM (Electronically Signed) us Kervin BUTLER US Final Resul t * TROPONIN T (HS) ONE TIME (12/14/2024 9:15 AM [employer]) TROPONIN T HS <6 6-10 ng/L ng/L 12/14/2024 9:51 AM [employer] [facility] Blood BLOOD SPECIMEN / Unknown IV Start / Unknown 12/14/2024 9:15 AM [employer] 12/14/2024 9:25 AM [employer] Narrative [facility] - 12/14/2024 9:51 AM [employer] hs-cTnT (Elecsys Troponin T Gen 5) concentration (s) above the sex-specific 99th percentile (16 ng/L or greater for males or 11 ng/L or greater for females) are indicative of myocardial injury. If initial hs-cTnT <=100 ng/L at presentation, a 0h/2h ABSOLUTE (ng/L) delta change (rising or falling) of >=10 ng/L suggests a significant change, whereas a 0h/2h delta change <=3 ng/L suggests no significant change. If initial hs-cTnT >100 ng/L at presentation, a 0h/2h/ RELATIVE (percent, %) delta change of 20% is suggested to distinguish patients with acute vs. chronic myocardial injury. There are multiple etiologies that can cause hs-cTnT increases above the 99th percentile (myocardial injury) other than acute myocardial infarction. Clinical context and careful clinical evaluation are critical for diagnosis and risk-stratification. The diagnosis of acute myocardial infarction requires a rising and/or falling pattern in hs-cTnT concentrations with at least one value above the sex-specific 99th percentile PLUS at least one of the following clinical criteria: ischemic symptoms, new or presumed new significant ST-T wave changes or new LBBB, development of pathological Q waves, imaging evidence of new loss of viable myocardium or new regional wall motion abnormality, or identification of intracoronary atherothrombosis or an acute angiographic culprit on coronary angiography. In appropriate low-risk patients with a non-ischemic electrocardiogram without active chest pain with a symptom onset >3-hours without recurrence, a single initial hs-cTnT<6 ng/L identifies patient with a very low risk in emergency department patient population. us Jordon Harris MD CHEMISTRY Final Res ult [facility] [address] [place] [address] * (ABNORMAL) CBC W PLT NO DIFF (12/14/2024 9:15 AM [employer]) WHITE BLOOD COUNT 8.4 4.5 - 11.0 thou/cu mm 12/14/2024 9:29 AM [employer] [facility] RED BLOOD COUNT 4.69 4.00 - 5.20 mil/cu mm 12/14/2024 9:29 AM [facility] HEMOGLOBIN 14.2 12.0 - 16.0 g/dL 12/14/2024 9:29 AM [employer] [facility] HEMATOCRIT 42.6 33.0 - 51.0 % 12/14/2024 9:29 AM [facility] MCV 91 80 - 100 fL 12/14/2024 9:29 AM [facility] MCH 30.3 26.0 - 34.0 pg 12/14/2024 9:29 AM [facility] MCHC 33.3 32.0 - 36.0 g/dL 12/14/2024 9:29 AM [facility] RDW 13.1 11.5 - 15.5 % 12/14/2024 9:29 AM [facility] PLATELET COUNT 224 140 - 440 thou/cu mm 12/14/2024 9:29 AM [facility] MPV 11.2(H) 6.5 - 11.0 fL 12/14/2024 9:29 AM [facility] NRBC 0.0 % 12/14/2024 9:29 AM [employer] [facility] ABS NRBC 0.0 thou /cu mm 12/14/2024 9:29 AM [employer] [facility] Blood BLOOD SPECIMEN / Unknown IV Start / Unknown 12/14/2024 9:15 AM [employer] 12/14/2024 9:24 AM [employer] us Jordon Harris MD HEMATOLOGY Final Res ult [facility] [address] [place] [address] * (ABNORMAL) BASIC METABOLIC PANEL (12/14/2024 9:15 AM [employer]) SODIUM 139 136 - 145 mmol/L 12/14/2024 9:51 AM [facility] POTASSIUM 3.6 3.5 - 5.1 mmol/L 12/14/2024 9:51 AM [facility] CHLORIDE 103 98 - 107 mmol/L 12/14/2024 9:51 AM [facility] CO2,TOTAL 19(L) 22 - 29 mmol/L 12/14/2024 9:51 AM [facility] ANION GAP 17 5 - 18 12/14/2024 9:51 AM [facility] GLUCOSE 85 70 - 99 mg/dL 12/14/2024 9:51 AM [facility] CALCIUM 9.9 8.8 - 10.4 mg/dL 12/14/2024 9:51 AM [facility] Comment: Reference ranges for this test were updated on 09/08/2024 to reflect our healthy population more accurately. Reference range changes are not retroactively applied to results, but previous results using the same methodology can be interpreted in the context of the new reference range. BUN 16 6 - 20 mg/dL 12/14/2024 9:51 AM [facility] CREATININE 0.88 0.50 - 0.90 mg/dL 12/14/2024 9:51 AM [facility] BUN/CREAT RATIO 18 10 - 20 9:51 AM [facility] eGFR >90 >90 mL/min/1.7 3m2 12/14/2024 9:51 AM [facility] Comment:As of 2022, eG FR is calculated by the CKD-EPI creatinine equation without race adjustment. eGFR can be influenced by muscle mass, exercise, and diet. The reported eGFR is an estimation only and is only applicable if the renal function is stable. Blood BLOOD SPECIMEN / Unknown IV Start / Unknown 12/14/2024 9:15 AM [employer] 12/14/2024 9:25 AM [employer] Jordon Harris MD CHEMISTRY Final Res ult Performing Organization Address [facility] Co de Phone Number [place] [phone] [place] [address] * EKG 12 LEAD (12/14/2024 8:54 AM [employer]) Interpretation Normal sinus rhythm with sinus arrhythmia Nonspecific T wave abnormality Abnormal ECG BEYOND NOW Ventricular Rate 68 BPM BEYOND NOW Atrial Rate 68 BPM BEYOND NOW P-R Interval 128 ms BEYOND NOW QRS Duration 86 ms BEYOND NOW QT 416 ms BEYOND NOW QTc 442 ms BEYOND NOW P Critz 13 degrees BEYOND NOW R Critz 12 degrees BEYOND NOW T Critz -1 degrees BEYOND NOW 12/14/2024 8:54 AM [employer] 12/15/2024 6:24 AM [employer] Jordon Harris MD EKG ORD Final Res ult Performing Organization Address [facility] de Phone Number [place], [place] * (ABNORMAL) URINALYSIS MICROSCOPIC (12/14/2024 8:30 AM [employer]) RBC 26-50(A) 0-2, None Seen /HPF 12/14/2024 9:35 AM [employer] [facility] WBC 3-5 0-2, 3-5, None Seen /HPF 12/14/2024 9:35 AM [employer] [facility] BACTERIA Many(A) None Seen, Rare, Few Bacteria/ HPF 12/14/2024 9:35 AM [employer] [facility] EPITHELIAL CELLS Moderate(A) None Seen, Few Epi/HPF 12/14/2024 9:35 AM [employer] [facility] Mucus Present 12/14/2024 9:35 AM [employer] [facility] Urine URINE SPECIMEN / Unknown Non-Blood / Unknown 12/14/2024 8:30 AM [employer] 12/14/2024 8:45 AM [employer] [facility] Ed Triage URINE Final Result [facility] [address] [place] [address] * (ABNORMAL) UA W/ SEDIMENT EXAM REFLEXED PER CRITERIA (12/14/2024 8:30 AM [employer]) COLOR Yellow Yellow Color 12/14/2024 8:53 AM [facility] CLARITY Cloudy(A) Clear Clarity 12/14/2024 8:53 AM [facility] SPECIFIC GRAVITY,URINE >=1.030(A) 1.010, 1.015, 1.020, 1.025 12/14/2024 8:53 AM [facility] PH,URINE 6.0 6.0, 7.0, 8.0, 5.5, 6.5, 7.5, 8.5 12/14/2024 8:53 AM [facility] UROBILINOGEN,QU ALITATIVE Normal Normal EU/dl 12/14/2024 8:53 AM [facility] PROTEIN, URINE 100(A) Negative mg/dL 12/14/2024 8:53 AM [facility] GLUCOSE, URINE Negative Negative mg/dL 12/14/2024 8:53 AM [facility] KETONES,URINE >=80(A) Negative mg/dL 12/14/2024 8:53 AM [facility] BILIRUBIN,URINE Abnormal(A) Negative 12/14/19 25 8:53 AM [facility] Comment:A variety of metabol ites and/or medications may result in a positive bilirubin result. Clinical correlation is recommended. OCCULT BLOOD,URINE Large(A) Negative 12/14/2024 8:53 AM [facility] NITRITE Negative Negative 12/14/2024 8:53 AM [facility] LEUKOCYTE ESTERASE Negative Negative 12/14/2024 8:53 AM [facility] Urine URINE SPECIMEN / Unknown Non-Blood / Unknown 12/14/2024 8:30 AM [employer] 12/14/2024 8:45 AM [employer] [facility] Ed Triage URINE Final Result Performing Organization Address City/[facility]/ZIP Co de Phone Number [address] [address] * URINE (12/14/2024 8:30 AM [employer]) ,URIN E Negative Negative 12/14/2024 8:56 AM [employer] [facility] Urine URINE SPECIMEN / Unknown Non-Blood / Unknown 12/14/2024 8:30 AM [employer] 12/14/2024 8:45 AM [employer] [facility] Ed Triage URINE Final Result Performing Organization Address City/[facility] de Phone Number [address] [address] from Last 3 Months Insurance [address] [place] [address] [facility] [address] [place] [address] [facility] [id number] [facility] [place] [id number] Care Teams Cook Fruit Relationship Specialty Start Date End Date [facility] - [address] [place] [address] PCP - General 12/25/21
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
[2025-02-16 21:08] VITALS: BP 139/90; PULSE 80; RESP 16; TEMP 36.6; O2SAT 98; BMI 24.8
[2025-02-16] MEDS: 0.9 % SODIUM CHLORIDE 1000 ml 1,000 ML IV (21:32)
[2025-02-16] MEDS: FAMOTIDINE 10 MG/ML inj 20 MG IVP (21:32)
[2025-02-16] MEDS: ONDANSETRON 2 MG/ML inj 4 MG IVP (21:32)
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
--- OUTSIDE RECORDS SUMMARY | 2025-02-16 21:38 | XMS_ITS | Encounter Summary ---
Author Organization [facility] Address [address] [place] [address]. [place] [address] Care Team Providers Care Computerized Mill Recorder Name Role Phone GynecologySis Obstetrics & Primary C are Provider Unavailable No Ref-Primary, Physician Primary Care Provider [facility], [facility] Primary Care Provider + Encounter Details [...] on file Legal Sex Female 4:25 AM JUNIOR ACCOUNTANT BOOKKEEPER Gender Identity Not on file Sexual Orientation Not on file COVID-19 Exposure Response Date Recorded In the last month, have you been in contact with someone who was confirmed or suspected to have Coronavirus / COVID-19? No / Unsure 12/27/2021 4:42 PM JUNIOR ACCOUNTANT BOOKKEEPER documented as of this encounter Plan of Treatment Not on file documented as of this encounter Visit Diagnoses Not on filedocumented in this encounter Additional Health Concerns Infection Onset Date Last Indicated Resolved Time Influenza 11/06/2023 11/06/2023 11/13/2023 11:3 9 PM JUNIOR ACCOUNTANT BOOKKEEPER Rule Out COVID-19 08/05/2024 08/05/2024 08/06/2024 11:55 AM CDT documented as of this encounter Care Teams Computerized Mill Recorder Relationship Specialty Start Date End Date GynecologySis Obstetrics & PCP - General wood room supervisor 12/27/21 02/12/23 No Ref-Primary, Physician PCP - General 11/06/23 02/07/25 [facility] [address] [place] [phone] PCP - General 02/08/25 documented as of this encounter
--- OUTSIDE RECORDS SUMMARY | 2025-02-16 21:38 | XMS_ITS | Clinical Summary ---
Author Organization [employer] Address [address] [place] [address] Care Team Providers Care Nursing Home Assistant Administrator Name Role Phone [facility] [...] Description 02/11/2025 1:45 PM CDT Orders Only [facility] [id number] [place] [address] Lab 02/11/2025 1:15 PM CDT Telemedicine [facility] [address] [place] [address] Joan Reed PA Telehealth (Follow up ER visit) 02/11/2025 Travel 01/07/2025 Refill [facility] [address] [place] [address] Kervin Neri PA Refill Request (Bupropion/) 12/18/2024 1:45 PM WAYS OPERATOR Ancillary Procedure [facility] [address] [address] 12/18/2024 Travel 12/18/2024 Telephone [facility] [address] [place] [address] Kervin Neri PA Refill Request (pharmacy change) 12/16/2024 2:00 PM WAYS OPERATOR Office Visit [address] [address] Kervin Neri PA Follow Up (ED- 12/14/24) 12/16/2024 Travel 12/14/2024 8:32 AM WAYS OPERATOR - 12/14/2024 10:30 AM WAYS OPERATOR Emergency [facility] [address] [place] [address] Jordon Harris MD Nausea and vomiting, unspecified [...] on file Legal Sex Female 5:42 AM WAYS OPERATOR Gender Identity Not on file Sexual Orientation [...] Comments Blood Pressure 102/78 12/16/2024 2:06 PM WAYS OPERATOR Pulse 106 12/16/2024 2:06 PM WAYS OPERATOR Temperature 36.6 C (97.8 F) 12/14/2024 8:30 AM WAYS OPERATOR Respiratory Rate 17 12/14/2024 8:30 AM WAYS OPERATOR Oxygen Saturation 100% 12/16/2024 2:06 PM WAYS OPERATOR Inhaled Oxygen Concentration - - Weight 80.2 kg (176 lb 14.4 oz) 12/16/2024 2:06 PM WAYS OPERATOR Height 175.3 cm (5' 9) 12/14/2024 9:05 AM WAYS OPERATOR Body Mass Index 26.12 12/14/2024 9:05 AM WAYS OPERATOR Plan of Treatment Health Maintenance Due Date [...] TA AND TV KALYAN 12/18/2024 2:17 PM WAYS OPERATOR Dysfunctional uterine bleeding TROPONIN T (HS) ONE TIME STAT 12/14/2024 9:15 AM WAYS OPERATOR HCG BETA QUANT, STAT 12/14/2024 9:15 AM WAYS OPERATOR BASIC METABOLIC PANEL STAT 12/14/2024 9:15 AM WAYS OPERATOR CBC W PLT NO DIFF STAT 12/14/2024 9:1 5 AM WAYS OPERATOR EKG 12 LEAD STAT 12/14/2024 8:54 AM WAYS OPERATOR URINALYSIS MICROSCOPIC STAT 12/14/2024 8:30 AM WAYS OPERATOR URINE STAT 12/14/2024 8:30 AM WAYS OPERATOR UA W/ SEDIMENT EXAM REFLEXED PER CRITERIA STAT 12/14/2024 8:30 AM WAYS OPERATOR from Last 3 Months Results * HCG BETA QUANT, (02/11/2025 1:51 PM CDT) Only the most recent of2 resultswithin the time period is included. HCG BETA QUANT,PREGNANC Y 19,070 mIU/mL 02/11/2025 11:01 PM CDT [facility] Blood BLOOD SPECIMEN / Unknown [facility] Collect / Unknown 02/11/2025 1:51 PM CDT 02/11/2025 1:[address] [facility] - 02/11/2025 11:01 PM CDT Expected Value [...] us Joan BUTLER CHEMISTRY Final Resu lt [facility] [address] [place] [address], [place] * US PELVIS COMPLETE TA AND TV (12/18/2024 2:17 PM WAYS OPERATOR) Anatomical Region Laterality Modality Pelvis Ultrasound 12/18/2024 2:31 PM WAYS OPERATOR Impressions 12/18/2024 2:31 PM WAYS OPERATOR Unremarkable pelvic ultrasound. Dictated by Sylvain Mariee MD @ 12/18/2024 2:31:24 PM (Electronically Signed) Narrative 12/18/2024 2:31 PM WAYS OPERATOR For Patients: As a result of the [...] ovaries. Cul-de-sac: Minimal free fluid. Procedure Note Sylvani Mariee MD - 12/18/2024 For Patients: As [...] T (HS) ONE TIME (12/14/2024 9:15 AM WAYS OPERATOR) TROPONIN T HS <6 6-10 ng/L ng/L 12/14/2024 9:51 AM WAYS OPERATOR [facility] Blood BLOOD SPECIMEN / Unknown IV Start / Unknown 12/14/2024 9:15 AM WAYS OPERATOR 12/14/2024 9:25 AM WAYS OPERATOR Narrative [facility] - 12/14/2024 9:51 AM WAYS OPERATOR hs-cTnT (Elecsys Troponin T Gen 5) concentration [...] Jordon Harris MD CHEMISTRY Final Res ult [facility] [address] [place] [address] * (ABNORMAL) CBC W PLT NO DIFF (12/14/2024 9:15 AM WAYS OPERATOR) WHITE BLOOD COUNT 8.4 4.5 - 11.0 thou/cu mm 12/14/2024 9:29 AM WAYS OPERATOR [facility] RED BLOOD COUNT 4.69 4.00 - 5.20 mil/cu mm 12/14/2024 9:29 AM [facility] HEMOGLOBIN 14.2 12.0 - 16.0 g/dL 12/14/2024 9:29 AM WAYS OPERATOR [facility] HEMATOCRIT 42.6 33.0 - 51.0 % 12/14/2024 9:29 AM [facility] MCV 91 80 - 100 fL 12/14/2024 9:29 AM [facility] MCH 30.3 26.0 - 34.0 pg 12/14/2024 9:29 AM [facility] MCHC 33.3 32.0 - 36.0 g/dL 12/14/2024 9:29 AM [facility] RDW 13.1 11.5 - 15.5 % 12/14/2024 9:29 AM [facility] PLATELET COUNT 224 140 - 440 thou/cu mm 12/14/2024 9:29 AM [facility] MPV 11.2(H) 6.5 - 11.0 fL 12/14/2024 9:29 AM [facility] NRBC 0.0 % 12/14/2024 9:29 AM WAYS OPERATOR [facility] ABS NRBC 0.0 thou /cu mm 12/14/2024 9:29 AM WAYS OPERATOR [facility] Blood BLOOD SPECIMEN / Unknown IV Start / Unknown 12/14/2024 9:15 AM WAYS OPERATOR 12/14/2024 9:24 AM WAYS OPERATOR us Jordon Harris MD HEMATOLOGY Final Res ult [facility] [address] [place] [address] * (ABNORMAL) BASIC METABOLIC PANEL (12/14/2024 9:15 AM WAYS OPERATOR) SODIUM 139 136 - 145 mmol/L 12/14/2024 9:51 AM [facility] POTASSIUM 3.6 3.5 - 5.1 mmol/L 12/14/2024 9:51 AM [facility] CHLORIDE 103 98 - 107 mmol/L 12/14/2024 9:51 AM [facility] CO2,TOTAL 19(L) 22 - 29 mmol/L 12/14/2024 9:51 AM [facility] ANION GAP 17 5 - 18 12/14/2024 9:51 AM [facility] GLUCOSE 85 70 - 99 mg/dL 12/14/2024 9:51 AM [facility] CALCIUM 9.9 8.8 - 10.4 mg/dL 12/14/2024 9:51 AM [facility] Comment: Reference ranges for this test were updated on 09/08/2024 to reflect our healthy population more accurately. Reference range changes are not retroactively applied to results, but previous results using the same methodology can be interpreted in the context of the new reference range. BUN 16 6 - 20 mg/dL 12/14/2024 9:51 AM [facility] CREATININE 0.88 0.50 - 0.90 mg/dL 12/14/2024 9:51 AM [facility] BUN/CREAT RATIO 18 10 - 20 9:51 AM [facility] eGFR >90 >90 mL/min/1.7 3m2 12/14/2024 9:51 AM [facility] Comment:As of 2022, eG FR is calculated by the CKD-EPI creatinine equation without race adjustment. eGFR can be influenced by muscle mass, exercise, and diet. The reported eGFR is an estimation only and is only applicable if the renal function is stable. Blood BLOOD SPECIMEN / Unknown IV Start / Unknown 12/14/2024 9:15 AM WAYS OPERATOR 12/14/2024 9:25 AM WAYS OPERATOR Jordon Harris MD CHEMISTRY Final Res ult Performing Organization Address [facility] Co de Phone Number [place] [phone] [place] [address] * EKG 12 LEAD (12/14/2024 8:54 AM WAYS OPERATOR) Interpretation Normal sinus rhythm with sinus arrhythmia Nonspecific T wave abnormality Abnormal ECG BEYOND NOW Ventricular Rate 68 BPM BEYOND NOW Atrial Rate 68 BPM BEYOND NOW P-R Interval 128 ms BEYOND NOW QRS Duration 86 ms BEYOND NOW QT 416 ms BEYOND NOW QTc 442 ms BEYOND NOW P Lowman 13 degrees BEYOND NOW R Lowman 12 degrees BEYOND NOW T Lowman -1 degrees BEYOND NOW 12/14/2024 8:54 AM WAYS OPERATOR 12/15/2024 6:24 AM WAYS OPERATOR Jordon Harris MD EKG ORD Final Res ult Performing Organization Address [facility] de Phone Number [place] NOW [place], [place] * (ABNORMAL) URINALYSIS MICROSCOPIC (12/14/2024 8:30 AM WAYS OPERATOR) RBC 26-50(A) 0-2, None Seen /HPF 12/14/2024 9:35 AM WAYS OPERATOR [facility] WBC 3-5 0-2, 3-5, None Seen /HPF 12/14/2024 9:35 AM WAYS OPERATOR [facility] BACTERIA Many(A) None Seen, Rare, Few Bacteria/ HPF 12/14/2024 9:35 AM WAYS OPERATOR [facility] EPITHELIAL CELLS Moderate(A) None Seen, Few Epi/HPF 12/14/2024 9:35 AM WAYS OPERATOR [facility] Mucus Present 12/14/2024 9:35 AM WAYS OPERATOR [facility] Urine URINE SPECIMEN / Unknown Non-Blood / Unknown 12/14/2024 8:30 AM WAYS OPERATOR 12/14/2024 8:45 AM WAYS OPERATOR [facility] Ed Triage URINE Final Result [facility] [address] [place] [address] * (ABNORMAL) UA W/ SEDIMENT EXAM REFLEXED PER CRITERIA (12/14/2024 8:30 AM WAYS OPERATOR) COLOR Yellow Yellow Color 12/14/2024 8:53 AM [facility] CLARITY Cloudy(A) Clear Clarity 12/14/2024 8:53 AM [facility] SPECIFIC GRAVITY,URINE >=1.030(A) 1.010, 1.015, 1.020, 1.025 12/14/2024 8:53 AM [facility] PH,URINE 6.0 6.0, 7.0, 8.0, 5.5, 6.5, 7.5, 8.5 12/14/2024 8:53 AM [facility] UROBILINOGEN,QU ALITATIVE Normal Normal EU/dl 12/14/2024 8:53 AM [facility] PROTEIN, URINE 100(A) Negative mg/dL 12/14/2024 8:53 AM [facility] GLUCOSE, URINE Negative Negative mg/dL 12/14/2024 8:53 AM [facility] KETONES,URINE >=80(A) Negative mg/dL 12/14/2024 8:53 AM [facility] BILIRUBIN,URINE Abnormal(A) Negative 12/14/19 25 8:53 AM [facility] Comment:A variety of metabol ites and/or medications may result in a positive bilirubin result. Clinical correlation is recommended. OCCULT BLOOD,URINE Large(A) Negative 12/14/2024 8:53 AM [facility] NITRITE Negative Negative 12/14/2024 8:53 AM [facility] LEUKOCYTE ESTERASE Negative Negative 12/14/2024 8:53 AM [facility] Urine URINE SPECIMEN / Unknown Non-Blood / Unknown 12/14/2024 8:30 AM WAYS OPERATOR 12/14/2024 8:45 AM WAYS OPERATOR [facility] Ed Triage URINE Final Result Performing Organization Address City/[facility]/ZIP Co de Phone Number [address] [address] * URINE (12/14/2024 8:30 AM WAYS OPERATOR) ,URIN E Negative Negative 12/14/2024 8:56 AM WAYS OPERATOR [facility] Urine URINE SPECIMEN / Unknown Non-Blood / Unknown 12/14/2024 8:30 AM WAYS OPERATOR 12/14/2024 8:45 AM WAYS OPERATOR [facility] Ed Triage URINE Final Result Performing Organization Address City/[facility] de Phone Number [address] [address] from Last 3 Months Insurance [address] [place] [id number] [facility] [address] [place] [id number] [facility] [id number] [facility] [place] [address] Care Teams Nursing Home Assistant Administrator Relationship Specialty Start Date End Date [facility] - [address] [place] [address] PCP - General 12/25/21
--- OUTSIDE RECORDS SUMMARY | 2025-02-16 21:38 | XMS_ITS | Clinical Summary ---
Author Organization [place] Address [address] [place] [address]. [place] [address] Care Team Providers Care Core Inserter Name Role Phone [facility] Primary Care Provider + Allergies Active [...] CDT - 02/08/2025 12:33 PM CDT Emergency [facility] Emergency Dept [address] [place] [phone] Barbra Haji MD Early stage of ; [...] 0.6 oz pur e alcohol) in past [place] Depression Scale Answer Date Recorded Last EPDS Total Score Not on file 08/08/2022 The thought of harming myself has occurred to me . Never 08/08/2022 Adolescent Education Answer Date Record ed Getting School Help Needed Not on file 08/20 Comments Yes Sex and Gender Information Value Date Recorded Sex Assigned at Not on file Legal Sex Female 4:25 AM GAS OPERATIONS ANALYST Gender Identity Not on file Sexual Orientation [...] 02/08/2025 11:21 AM CDT [facility] Specific Mobile Urine 1.024 1.003 - 1.035 02/08/2025 11:21 [...] LAB - URINE ORDERABLES Final Result LABORATORY [facility] Acute Care Lab [address] Lab (1st floor, no room number) [place] [address], [facility] * US OB 1st Trimester [...] 1ST TRIMESTER W TRANSVAGINAL W DOPPLER LOCATION: [facility] DATE: 02/08/2025 INDICATION: Abdominal and back pain. [...] 1ST TRIMESTER W TRANSVAGINAL W DOPPLER LOCATION: [facility] DATE: 02/08/2025 INDICATION: Abdominal and back pain. [...] Tube (02/08/2025 10:18 AM CDT) Hold Specimen [facility] 02/08/2025 11:31 AM CDT [facility] Blood STRUCTURE OF RIGHT UPPER LIMB / Unknown Venipuncture / Unknown 02/08/2025 10:18 AM CDT 02/08/2025 10:29 AM CDT us Barbra Haji MD LAB - BLOOD ORDERABLES Final Result [facility] Acute Care Lab [address] Lab (1st floor, no room number) [place] [address], [facility] * Extra Blue Top Tube (02/08/2025 10:18 AM CDT) Hold Specimen [facility] 02/08/2025 11:31 AM CDT [facility] Blood STRUCTURE OF RIGHT UPPER LIMB / Unknown Venipuncture / Unknown 02/08/2025 10:18 AM CDT 02/08/2025 10:29 AM CDT us Barbra Haji MD LAB - BLOOD ORDERABLES Final Result [facility] Lab [address] Lab (1st floor, no room number) [place] [address], [facility] * Hemoglobin (02/08/2025 10:18 AM CDT) Hemoglobin 14.0 11.7 - 15.7 g/dL 02/08/2025 10:33 AM CDT LABORATORY Blood STRUCTURE OF RIGHT UPPER LIMB / Unknown Venipuncture / Unknown 02/08/2025 10:18 AM CDT 02/08/2025 10:29 AM CDT us Barbra Haji MD LAB - BLOOD ORDERABLES Final Result [facility] Care [facility] [address] Lab (1st floor, no room number) [place] [address] * (ABNORMAL) HCG QUANTitative (blood) (02/08/2025 10:18 AM CDT) [facility] hCG Quantitative 6,404(H) <5 mIU/mL 02/09/20 10:58 AM CDT LABORATORY Comment: Adult: 0-5 mIU/mL for healthy non- person Neonates: Should be within normal ranges by 2 days after Blood STRUCTURE OF RIGHT UPPER LIMB / Unknown Venipuncture / Unknown 02/08/2025 10:18 AM CDT 02/08/2025 10:29 AM CDT us Barbra Haji MD LAB - BLOOD ORDERABLES Final Result [facility] Acute Care Lab [address] Lab (1st floor, no room number) [place] [address] * HIV-1 Antibody (External Result) (05/21/2022 12:00 PM CDT) [facility] HIV 1&2 Antibody (External) Nonreactive Nonreactive EXTERNAL LAB 05/21/2022 12:0 0 PM CDT us Patient Reported LAB - HIM EXTERNAL RESULT Final Result EXTERNAL LAB External Lab * CHLAMYDIA TRACHOMATIS PCR (05/28/2017 11:45 AM CDT) [facility] Specimen Description [facility] Chlamydia Trachomatis PCR Negative Negative for C. trachomatis rRNA by screener operator mediated amplification. A negative result by screener operator mediated amplification does not preclude the presence of C. trachomatis infection because results are dependent on proper and adequate collection, absence of inhibitors, and sufficient rRNA to be detected. [facility] Cervical swab (specimen) 05/28/2017 11:45 AM CDT 05/28/2017 12:46 PM CDT us Que Monteiro MD LAB - MICRO GENERAL ORDER CHIN Final Result [facility] [address] [place] [address], [facility] [address] [facility] [address] [place] [address] from Last 3 Months or Most Recently Relevant to Health Maintenance Insurance [address] [place] [id number] [employer] [place] [address] [place] [address] [employer] [place] Advance Directives For more information, please contact: [phone] * Full Code (Latest Code Status on [...] harsh nt/ legal decision maker Care Teams Core Inserter Relationship Specialty Start Date End Date [facility] [address] [place] [address] PCP - General 02/08/25
--- OUTSIDE RECORDS SUMMARY | 2025-02-16 21:38 | XMS_ITS | Encounter Summary ---
Author Organization [employer] Address [address] [place] [address] Care Team Providers Care Door And Arrival Attendant Name Role Phone Needs Pcp, Assignment Primary Care Provider Reason for Visit * Reason Comments Concerns Encounter Details Date Type Department Care Team (Late st Contact Info) Description 02/08/2025 Nurse Triage [place] [address] Obstetrics/Gynecology [address] [place] [phone] [place] [address] [place] [address] Concerns Social History Tobacco Use Types Packs/Day [...] - Abdominal Pain Less Than 20 Weeks [id number] documented in this encounter Plan of Treatment Upcoming Encounters Date Type Department Care Team (Late st Contact Info) Description 02/18/2025 9:00 AM CDT Appointment [facility] Obstetrics/Gynecology [address] [facility] [place] [address] Nurse Intake 4, [id number] Ob 02/26/2025 1:45 PM CDT Appointment [place] [address] Obstetrics/Gynecology [address] [place] [address] Peir Wells, [place] CNM [address] [place] [address] 03/22/2025 1:00 PM CDT Appointment [facility] [address] [facility], [address] [place] [address] [place] [address] [place] [phone] documented as of this encounter Visit Diagnoses Not on filedocumented in this encounter Care Teams Door And Arrival Attendant Relationship Specialty Start Date End Date Needs Pcp, [place] [address] PCP - General 09/28/16 documented as of this encounter
--- OUTSIDE RECORDS SUMMARY | 2025-02-16 21:38 | XMS_ITS | Encounter Summary ---
Author Organization [employer] Address [address] [place] [address]. [place] [address] Care Team Providers Care Materials And Processes Manager Name Role Phone [facility] Primary Care Provider + Encounter Details Date Type Department Care Team (Latest Contact Info) Description 02/08/2025 Travel Social History Tobacco Use Types Packs/Day Years Used Date Smoking Tobacco: Every Day Cigarettes Vaping Device Smokeless Tobacco: Never Alcohol Use Standard Drinks/Week Comments No 0 (1 standard drink = 0.6 oz pur e alcohol) in past [place] Depression Scale Answer Date Recorded Last EPDS Total Score Not on file 08/08/2022 The thought of harming myself has occurred to me . Never 08/08/2022 Adolescent Education Answer Date Record ed Getting School Help Needed Not on file 08/20 Comments Yes Sex and Gender Information Value Date Recorded Sex Assigned at Not on file Legal Sex Female 4:25 AM BIOSTATISTICIAN Gender Identity Not on file Sexual Orientation Not on file documented as of this encounter Plan of Treatment Not on file documented as of this encounter Visit Diagnoses Not on filedocumented in this encounter Care Teams Materials And Processes Manager Relationship Specialty Start Date End Date [facility] [address] [place] [phone] PCP - General 02/08/25 documented as of this encounter
--- OUTSIDE RECORDS SUMMARY | 2025-02-16 21:38 | XMS_ITS | Clinical Summary ---
Author Organization [facility] Address [address] [place] [address] Care Team Providers Care Obgyn Specialist Name Role Phone Needs Pcp, Assignment Primary Care Provider [phone] Source Comments You are receiving this document [...] for each transition of care or referral. [employer] Allergies Active Allergy Reactions Criticality Noted Date [...] Department Care Team Description 02/08/2025 Nurse Triage [place] [address] Obstetrics/Gynecology [address] [place] [address] Yanique Torres MD Concerns from Last 3 [...] Comments Blood Pressure 120/73 11/16/2022 9:49 AM RUBBER GOODS TESTER Pulse 80 11/16/2022 9:49 AM RUBBER GOODS TESTER Temperature 37.6 C (99.7 F) 02/15/2016 12:00 PM CDT Respiratory Rate 16 02/15/2016 12:00 PM CDT Oxygen Saturation - - Inhaled Oxygen Concentration - - Weight 75.8 kg (167 lb) 11/16/2022 9:49 AM RUBBER GOODS TESTER Height 175.3 cm (5' 9) 02/01/2022 1:04 PM CDT Body Mass Index 24.66 02/01/2022 1:04 PM CDT Plan of Treatment Upcoming Encounters Date Type Department Care Team (Late st Contact Info) Description 02/18/2025 9:00 AM CDT [facility] [address] [place] [address] Nurse Intake 4, [id number] Ob 02/26/2025 1:45 PM CDT Appointment [place] [address] Obstetrics/Gynecology [address] [place] [phone] Peri Wells, CERTIFIED PHARMACY TECH, CNM [address] [place] [phone] 03/22/2025 1:00 PM CDT Appointment [facility]-INTERIOR PLANT CARETAKER [address], [address] [place] [address] [place] [address] [place] [address] Health Maintenance Due Date Last [...] Negative (Non Reactive) 05/21/2022 4:05 PM CDT [facility] Comment:HIV-1 p24 Antigen an d HIV-1/HIV-2 Antibody not detected Blood Venipuncture / Unknown 05/21/2022 10:04 AM CDT 05/21/2022 10:04 AM CDT us Yanique Torres MD LAB_1 Final Result Performing Organization Address City/State/[facility] Co de Phone Number [facility] [address] * Hepatitis C Antibody, with Reflex (05/21/2022 10:04 AM CDT) Hepatitis C Antibody Negative (Non Reactive) Negative (Non Reactive) 05/21/2022 4:05 PM CDT [facility] Comment:Antibodies to HCV no t detected. Does not exclude the possiblity of exposure to HCV. Blood Venipuncture / Unknown 05/21/2022 10:04 AM CDT 05/21/2022 10:04 AM CDT us Yanique Torres MD LAB_1 Final Result [facility] [address] [place], [place] [address] * PAP Test (02/01/2022 1:47 PM CDT) Case Report Pap Case: [id number] Authorizing Provider: Zahraa Lei APRN, Collected: 02/01/2022 1347 FUNDRAISING SPECIALIST Ordering Location: [facility] Received: 02/01/2022 1816 Services-INTERIOR PLANT CARETAKER First Screen: Nicole Sherwood CT (ASCP) Specimen: Pap Test, Routine, Cervix/Endocervix 02/09/2022 9:55 AM CDT [facility] Pap Specimen Adequacy Satisfactory for evaluation, endocervical/phillips sformation zone component absent. 02/09/2022 9:55 AM CDT [facility] Pap Interpretation (NILM) Negative for intraepithelial lesion or malignancy. 02/09/2022 9:55 AM CDT [facility] at 0955 CDT Pap Disclaimer The Pap test is a screening test designed to aid in the detection of cervical cancer and its precursor lesions. It is not a diagnostic procedure and should not be used as the sole means of detecting cervical cancer. Both false-positive and false-negative results may occur. 02/09/2022 9:55 AM CDT [facility] Gross Description The specimen is received in SurePath fixative and properly labeled. 1 Pap-stained SurePath slide is prepared. 02/09/2022 9:55 AM CDT [facility] Embedded Images 9:55 AM CDT [facility] Other Specimen Type ENTIRE ENDOCERVIX / Unknown 02/01/2022 1:47 PM CDT 02/01/2022 6:16 PM CDT Comment:LMP: Patient's last menstrual period was 11/16/2021. Zahraa Lei APRN, FUNDRAISING SPECIALIST LAB PATHOLOGY Final Result [facility] [address] [place], [place] [address] * Chlamydia & GC (14 Years and Older) - Vagina (02/01/2022 1:47 PM CDT) Chlamydia Trachomatis STD Not Detected Not Detected 02/02/2022 1:40 PM CDT [facility] N. gonorrhoeae STD Not Detected Not Detected 02/02/2022 1:40 PM CDT [facility] Swab STD SPECIMEN FROM VAGINA / Unknown Non-blood Collection / Unknown 02/01/2022 1:47 PM CDT 02/01/2022 6:12 PM CDT Narrative [facility] - 02/02/2022 1:40 PM CDT Test performed by Crystal Machining Coordinator Mediated Amplification (TMA). us Zahraa Lei APRN, FUNDRAISING SPECIALIST LAB_1 Final Result [facility] [id number] [place] [address] from Last 3 Months or Most Recently Relevant to Health Maintenance Insurance [facility] Care Teams Obgyn Specialist Relationship Specialty Start Date End Date Needs Pcp, [place] [address] PCP - General 09/28/16
--- OUTSIDE RECORDS SUMMARY | 2025-02-16 21:38 | XMS_ITS | Encounter Summary ---
Author Organization [facility] Address [address] [place] [address]. [place] [address] Care Team Providers Care Account Services Representative Name Role Phone [facility], [facility] Primary Care Provider + Reason for Visit * Reason Comments Abdominal Pain Encounter Details Date Type Department Care Team (Late st Contact Info) Description 02/08/2025 9:48 AM CDT - 02/08/2025 12:33 PM CDT Emergency [facility] Emergency Dept [address] [place] [address] [phone] Barbra Haji MD [facility] [address] [place], [place] [id number] Early stage of ; Acute bilateral low back pain without sciatica Discharge Disposition: Home or Self Care Social History Tobacco Use Types Packs/Day Years Used Date Smoking Tobacco: Every Day Cigarettes Vaping Device Smokeless Tobacco: Never Alcohol Use Standard Drinks/Week Comments No 0 (1 standard drink = 0.6 oz pur e alcohol) in past Equality Depression Scale Answer Date Recorded Last EPDS Total Score Not on file 08/08/2022 The thought of harming myself has occurred to me . 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 Your back pain is likely muscular, you can use ice, heat, stretching exercises, Tylenol and physical therapy and avoid ibuprofen * Attachments The following attachments cannot be sent through Care Everywhere. * Low Back Pain: Keep Moving: Video (Mohawk) * : Managing Back Pain: Video (Mohawk) documented in this encounter Medications at Time [...] Bilirubin Urine Negative Ketones Urine Negative Specific Treece Urine 1.024 Blood Urine Negative pH Urine [...] this point but she can follow-up with SHAREPOINT TRAINER in several weeks for repeat ultrasound. No [...] 02/08/2025 11:21 AM CDT [facility] Specific Treece Urine 1.024 1.003 - 1.035 02/08/2025 11:21 [...] LAB - URINE ORDERABLES Final Result LABORATORY [facility] Acute Care Lab [address] Lab (1st floor, no room number) [place] [address] * US OB 1st Trimester [...] TRIMESTER W TRANSVAGINAL W DOPPLER LOCATION: [facility] DATE: 02/08/2025 INDICATION: Abdominal and back [...] TRIMESTER W TRANSVAGINAL W DOPPLER LOCATION: [facility] DATE: 02/08/2025 INDICATION: Abdominal and back [...] Tube (02/08/2025 10:18 AM CDT) Hold Specimen [facility] 02/08/2025 11:31 AM CDT [facility] Blood STRUCTURE OF RIGHT UPPER LIMB / Unknown Venipuncture / Unknown 02/08/2025 10:18 AM CDT 02/08/2025 10:29 AM CDT Barbra Haji MD LAB - BLOOD ORDERABLES Final Result [facility] Lab [address] Lab (1st floor, no room number) [address] * Extra Blue Top Tube (02/08/2025 10:18 AM CDT) [facility] Signature Hold Specimen [facility] 02/08/2025 11:31 AM CDT LABORATORY Blood STRUCTURE OF RIGHT UPPER LIMB / Unknown Venipuncture / Unknown 02/08/2025 10:18 AM CDT 02/08/2025 10:29 AM CDT us Barbra Haji MD LAB - BLOOD ORDERABLES Final Result [facility] Lab [address] Lab (1st floor, no room number) [address] * (ABNORMAL) HCG QUANTitative (blood) (02/08/2025 10:18 AM CDT) [facility] hCG Quantitative 6,404(H) <5 mIU/mL 02/09/20 10:58 AM CDT [facility] Comment: Adult: 0-5 mIU/mL for healthy non- person Neonates: Should be within normal ranges by 2 days after Blood STRUCTURE OF RIGHT UPPER LIMB / Unknown Venipuncture / Unknown 02/08/2025 10:18 AM CDT 02/08/2025 10:29 AM CDT Barbra Haji MD LAB - BLOOD ORDERABLES Final Result [facility] Acute Care Lab [address] Lab (1st floor, no room number) [place] [address] * Hemoglobin (02/08/2025 10:18 AM CDT) Hemoglobin 14.0 11.7 - 15.7 g/dL 02/08/2025 10:33 AM CDT LABORATORY Blood STRUCTURE OF RIGHT UPPER LIMB / Unknown Venipuncture / Unknown 02/08/2025 10:18 AM CDT 02/08/2025 10:29 AM CDT Barbra Haji MD LAB - BLOOD ORDERABLES Final Result Performing Organization Address City/[facility]/ZIP Co de Phone Number [facility] Care Lab [address] Lab (1st floor, no room number) [place] [phone] documented in this encounter Visit Diagnoses Diagnosis [...] RN) documented in this encounter Care Teams Account Services Representative Relationship Specialty Start Date End Date [facility], [facility] [address] [place] [address] PCP - General 02/08/25 documented as of this encounter
--- OUTSIDE RECORDS SUMMARY | 2025-02-16 21:38 | XMS_ITS | Encounter Summary ---
Author Organization [facility] Address [address] [place] [address]. [place] [address] Care Team Providers Care Grants Administrator Name Role Phone Dakotah Winslow MD Primary Care Provider [phone] Marlyn Brown MD Primary Care Provider Unavailable April Guzman MD Primary Care Provider [phone] Que Monteiro MD Unavailable Unavaila ble Que Monteiro MD Unavailable Unavaila ble No Ref-Primary, Physician Primary Care Provider Gynecology, [facility] Obstetrics & Primary C are Provider Unavailable No Ref-Primary, Physician Primary Care Provider [facility] [place] Primary Care Provider + Reason for Visit * Reason Onset Date Comments Outpatient 11/11/2014 iop Other Encounter Details Date Type Department Care Team (Late st Contact Info) Description 11/11/2014 Telephone [facility] Intake [address] [place] [address] Generic Behavioral IntakeMD Outpatient (iop); Social History Tobacco Use Types Packs/Day Years Used Date Smoking Tobacco: Never Assessed Comments No Sex and Gender Information Value Date Recorded Sex Assigned at Not on file Legal 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 IAL TRACKWORK BLACKSMITH * Telephone Encounter - Sheila Trivedi - 11/11/2014 10:15 AM CST recvd order from dr coronado/4A for referral to [facility] IOP; completed. IAL TRACKWORK BLACKSMITH documented in this encounter Plan of Treatment Not on file documented as of this encounter Visit Diagnoses Not on filedocumented in this encounter Additional Health Concerns Infection Onset Date Last Indicated Resolved Time Influenza 11/06/2023 11/06/2023 11/13/2023 11:3 9 PM SPECIAL TRACKWORK BLACKSMITH Rule Out COVID-19 08/05/2024 08/05/2024 08/06/2024 11:55 AM CDT documented as of this encounter Care Teams Grants Administrator Relationship Specialty Start Date End Date Dakotah Winslow MD [place] [id number] [place] [address] PCP - General Family Practice 10/29/13 07/25/16 Marlyn Brown MD [place] [id number] [place] [address] PCP - General Pediatrics 07/26/16 08/27/16 April Guzman MD [address] [place] [address] PCP - General drawing instructor 08/28/16 07/18/19 Que Monteiro MD PCP - Assigned PCP 06/30/17 01/06/19 No Ref-Primary, Physician PCP - General 07/19/19 12/26/21 GynecologySis Obstetrics & PCP - General drawing instructor 12/27/21 02/12/23 No Ref-Primary, Physician PCP - General 11/06/23 02/07/[address] [address] PCP - General 02/08/25 Que Monteiro MD Assigned PCP 06/30/17 05/28/20 documented as of this encounter
--- OUTSIDE RECORDS SUMMARY | 2025-02-16 21:38 | XMS_ITS | Encounter Summary ---
Author Organization [facility] Address [address] [place] [address]. [place] [address] Care Team Providers Care Member Service Specialist Name Role Phone Marlyn Brown MD Primary Care Provider Unavailable April Guzman MD Primary Care Provider [phone] Que Monteiro MD Unavailable Unavaila ble Que Monteiro MD Unavailable Unavaila ble No Ref-Primary, Physician Primary Care Provider GynecologySis Obstetrics & Primary C are Provider Unavailable No Ref-Primary, Physician [facility] [place] [facility] + Reason for Visit * Reason Onset Date Comments MH/CD Inpatient 08/20/2016 Encounter Details Date Type Department Care Team ([facility] st Contact Info) Description 08/20/2016 Telephone [facility] Behavioral Health Intake [address] [place] [address] Generic, Behavioral Intake, MH/CD Inpatient Social History Tobacco Use Types Packs/Day Years Used Date Smoking Tobacco: Former Alcohol Use Standard Drinks/Week Comments No 0 (1 standard drink = 0.6 oz pur e alcohol) in past Comments No Sex and Gender Information Value Date Recorded Sex Assigned at Not on file Legal Sex Female 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 Pt to be seen by [facility] for inpt need. documented in this encounter Plan of Treatment Not on file documented as of this encounter Visit Diagnoses Not on filedocumented in this encounter Additional Health Concerns Infection Onset Date Last Indicated Resolved Time Influenza 11/06/2023 11/06/2023 11/13/2023 11:3 9 PM PRECISION FILER HAND Rule Out COVID-19 08/05/2024 08/05/2024 08/06/2024 11:55 AM CDT documented as of this encounter Care Teams Member Service Specialist Relationship Specialty Start Date End Date Marlyn Brown MD PCP - General Pediatrics 07/26/16 08/27/16 [place] [address] PCP - General chainstitch pants outseamer 08/28/16 07/18/19 Que Monteiro MD PCP - Assigned PCP 06/30/17 01/06/19 No Ref-Primary, Physician PCP - General 07/19/19 12/26/21 GynecologySis Obstetrics & PCP - General chainstitch pants outseamer 12/27/21 02/12/23 No Ref-Primary, Physician PCP - General 11/06/23 02/07/[address] [address] PCP - General 02/08/25 Que Monteiro MD Assigned PCP 06/30/17 05/28/20 documented as of this encounter
--- OUTSIDE RECORDS SUMMARY | 2025-02-16 21:38 | XMS_ITS | Encounter Summary ---
Author Organization [place] Address [facility] [place] [address] Care Team Providers Care Hoop Riveter Name Role Phone No Ref-Primary, Physician Primary Care Provider Clinic, [facility] Primary Care Provider + Reason for Visit * Reason Onset Date Comments Call Back 03/03/2024 Encounter Details Date Type Department Care Team (Late st Contact Info) Description 03/03/2024 Telephone [facility] [id number] [place] [address] Sunita Huerta PA-C [id number] [place] [address] Call Back Social History Tobacco Use Types Packs/Day Years Used Date Smoking Tobacco: Every Day Cigarettes Vaping Device Smokeless Tobacco: Never Alcohol Use Standard Drinks/Week Comments No 0 (1 standard drink = 0.6 oz pur e alcohol) in past Anthon Depression Scale Answer Date Recorded Last EPDS Total Score Not on file 08/08/2022 The thought of harming myself has occurred to me . 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
[2025-02-16 21:43] VITALS: BP 113/81; PULSE 58; O2SAT 99
[2025-02-16 21:43] LABS: Appearance Urine Cloudy (Clear); Bilirubin Urine 1+ (Negative); Blood Urine Trace-lysed (Negative); Color Urine Yellow (Yellow); Glucose Urine Negative (Negative); Ketones Urine 4+ (Negative); Leukocyte Esterase Urine Negative (Negative); Nitrite Urine Negative (Negative); Protein Urine 1+ (Negative); Specific Gravity Urine >= 1.030 (1.000-1.030); Urobilinogen Urine 0.2 (0.2-1.0)
[2025-02-16 21:48] LABS: Amorphous Sediment Urine Few; Bacteria Urine Moderate; Squamous Epithelial Cell Urine Moderate (None-Few)
[2025-02-16 21:49] LABS: Mucus Urine Moderate
[2025-02-16 22:00] VITALS: PULSE 61; O2SAT 100
[2025-02-16 22:00] LABS: Chloride* 102 mmol/L (96-114); Potassium* 3.9 mmol/L (3.6-5.1); Sodium* 136 mmol/L (135-149)
[2025-02-16] MEDS: LACTATED RINGERS 1000 ML 1,000 ML IV (22:00)
[2025-02-16 22:03] LABS: Anion Gap 14 mEq/L (7-15); Blood Urea Nitrogen* 15 mg/dL (5-24); Calcium* 9.6 mg/dL (8.4-10.6); Carbon Dioxide* 20 mmol/L (20-32); Creatinine* 0.7 mg/dL (0.5-1.5); Est. Creatinine Clearance* 129.51; Estimated Glomerular Filt Rate 124 ml/min; Glucose* 92 mg/dL (60-115); Magnesium* 1.8 mg/dL (1.5-2.6)
[2025-02-16 22:45] VITALS: PULSE 71; O2SAT 100
[2025-02-16 23:15] VITALS: PULSE 70; O2SAT 99
[2025-02-16 23:33] VITALS: BP 112/71; PULSE 76; RESP 18; O2SAT 98
== END 2025-02-16 23:36 | disposition home or self-care (01) ==
PROVIDERS: Emergency Provider Family Medicine
DX: O21.9 Vomiting of pregnancy, unspecified (principal); Z3A.01 Less than 8 weeks gestation of pregnancy
CPT/HCPCS: 36415; 80048; 81001; 83735; 84702; 87086; 96361; 96374; 96375; 99284; J1308; J2405; J7030; J7120

== ENCOUNTER 2025-02-26 09:15 | Outpatient (CLI) | payer BC, SELFPAY ==
--- NOTE | 2025-02-26 09:15 | CRLHL7_ITS ---
For Patients: As a result of the Century Cures Act, medical imaging exams and procedure reports are released immediately into your electronic medical record. You may view this report before your referring provider. If you have questions, please contact your health care provider. OB ULTRASOUND LESS THAN 14 WEEKS, 02/26/2025 CLINICAL HISTORY: Dating, viability. COMPARISON: None. TECHNIQUE: Real time field scale imaging of the fetus was performed transvaginal. FINDINGS: LMP: 01/01/2025. LEBRON by LMP: 10/08/2025. GA: 8 weeks 0 days. CRL: 1.4 cm, 7 weeks 4 days. LEBRON 10/11/2025. FHR: 154 bpm. GEST SAC: 2.8 cm, appears within normal limits. YOLK SAC: 3.4 mm, appears within normal limits. RIGHT OV: 3.6 x 3.0 x 2.7 cm. CL LEFT OV: 2.5 x 2.5 x 2.6 cm. IMPRESSION: Single living intrauterine measuring 7 weeks 4 days and sonographic due date 10/11/2025. Ryan Garrido M.D. Diagnostic Radiologist [email or web address] Transcribed: 11:23 am DW/Dictated by: Ryan Garrido MD @ 02/26/2025 10:15:00 AM (Electronically Signed)
== END 2025-02-26 09:16 | disposition home or self-care (01) ==
LOC: US 09:16
PROVIDERS: Visit Provider Physician Assistant
DX: Z34.91 Encounter for supervision of normal pregnancy, unspecified, first trimester (principal); Z3A.01 Less than 8 weeks gestation of pregnancy
CPT/HCPCS: 76817

== ENCOUNTER 2025-02-26 10:51 | Outpatient (CLI) | payer BC, SELFPAY | END 2025-02-26 10:52 | disposition home or self-care (01) | PROVIDERS: Visit Provider Physician Assistant | DX: O09.291 Supervision of pregnancy with other poor reproductive or obstetric history, first trimester (principal); Z36.89 Encounter for other specified antenatal screening; O21.8 Other vomiting complicating pregnancy; O99.331 Smoking (tobacco) complicating pregnancy, first trimester; F17.290 Nicotine dependence, other tobacco product, uncomplicated; F12.90 Cannabis use, unspecified, uncomplicated; O99.341 Other mental disorders complicating pregnancy, first trimester; F32.A Depression, unspecified; M54.59 Other low back pain; G89.29 Other chronic pain; Z79.82 Long term (current) use of aspirin; Z3A.08 8 weeks gestation of pregnancy; Z79.899 Other long term (current) drug therapy | CPT/HCPCS: 80306; 82565; 82570; 83020; 83021; 84156; 84450; 84460; 84520; 85660; 86592; 86703; 86704; 86706; 86762; 86787; 86803; 86850; 86900; 86901; 87086; 87340; 87491; 87591 ==

== ENCOUNTER 2025-03-20 20:16 | Emergency (ER) | payer BC, SELFPAY ==
[2025-03-20 20:19] VITALS: BP 141/99; PULSE 90; RESP 16; TEMP 36.5; O2SAT 97; BMI 26.3
[2025-03-20 20:54] LABS: Appearance Urine Clear (Clear); Bilirubin Urine Negative (Negative); Blood Urine Trace-intact (Negative); Color Urine Light yellow (Yellow); Glucose Urine Negative (Negative); Ketones Urine Negative (Negative); Leukocyte Esterase Urine Trace (Negative); Nitrite Urine Negative (Negative); Protein Urine Negative (Negative); Specific Gravity Urine 1.015 (1.000-1.030); Urobilinogen Urine 0.2 (0.2-1.0)
--- NOTE | 2025-03-20 20:59 | ED_ITS ---
HPI - General Adult General Date Seen: 03/20/25 Chief complaint: Unspecified Complaint, Adult Stated complaint: 11 week preg. complications Time Seen by Provider: 03/20/25 20:32 Source: patient Mode of arrival: ambulatory Limitations: no limitations History of Present Illness HPI narrative: Patient is a 24-year-old female who is currently 11 weeks A2 presenting to emergency department for nausea and vomiting along with back pain. States she comes in because ?something does not feel right.?Has had an ultrasound showing an intrauterine . States she was seen here few weeks ago for hyperemesis gravidarum and was given Zofran. The Zofran seemed to help but she ran out a when she saw Ob they refused to give her Zofran. A different nausea medication was tried which has not been helping at all. Has not been to eat or drink much due to this having increased nausea. Past today she has noticed some sudden abdominal cramping that seems to come and go along with shoulder and back pain. Denies any injuries to her back or shoulders that she is aware of. States that time she feels disoriented. She does have a history of anxiety. Has not noticed any fevers or chills. Denies any chest pain or shortness of breath. Has not noticed any melena or hematochezia. Denies vaginal bleeding, vaginal discharge, dysuria. Has not had symptoms like this in previous pregnancies. Related Data Home Medications ?Medication ?Instructions ?Recorded ?Confirmed ondansetron 8 mg disintegrating 8 mg PO Q8H PRN nausea/vomiting 02/16/25 02/26/25 tablet Previous Rx's ?Medication ?Instructions ?Recorded promethazine 12.5 mg tablet 12.5 - 25 mg (1 - 2 x 12.5 mg) PO 02/26/25 Q6H PRN nausea and vomiting #30 tabs Allergies Allergy/AdvReac Type Severity Reaction Status Date / Time miconazole (From Monistat 3) Allergy Intermediate Rash Verified 02/26/25 10:34 amoxicillin Allergy Verified 02/26/25 10:34 Penicillins Allergy Verified 02/26/25 10:34 Review of Systems Status of ROS: Reports: 10 or more systems reviewed and unremarkable except as noted in History and below PFSH PFSH Surgical History History of elective ?Z98.890 - Other specified postprocedural states (ICD-10) Social History Narrative: 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 Marital status: Significant other. Sikhism/cultural needs: no. Chemical or radiation exposure: no. Pre- tobacco use: vaping. Pre- alcohol use: no. Current tobacco use: Vaping 3 to 4 times a day. Current alcohol use: no. Recreational drug use: Medical marijuana use. Dietary restrictions: no. Blood transfusion acceptable in an emergency: yes. PSYCHOSOCIAL HISTORY: History of depression or currently depressed: Yes. Current or past physical, emotional, or sexual mistreatment: Denies. Problems that will make it hard to make it to appointments: Denies. What is your current living situation?: I presently have a place to live Problems where you live: no known problems In the past 12 months, utilities in danger of being shut off: no In past 12 months, lack of transportation kept you from medical appts, meetings, work, or getting things needed for daily living: no In the past 12 mos, have been you worried that your food would run out before you had money to buy more?: never true In the past 12 mos, the food you bought just didn't last and you didn't have money to buy more?: never true Smoking Status: Never smoker Do you use any of these nicotine containing products: None Second hand tobacco smoke exposure: No How often do you have a drink containing alcohol: never AUDIT-C Alcohol total score: 0 Non-prescribed substance use: denies use How often does anyone, including family, friends and others, physically hurt you : never How often does anyone, including family, friends and others, insult or talk down to you: rarely How often does anyone, including family, friends and others, threaten you with harm: never How often does anyone, including family, friends and others, scream or curse at you: rarely Health Related Social Needs: Other personal risk factors, not elsewhere classified (Z91.89) Exam Narrative: Exam Narrative: Const: Well-nourished, Well-developed, in moderate distress Eyes: PERRL, no conjunctival injection, and symmetrical lids HENT: Atraumatic external nose and ears. Moist mucous membranes. Neck: Symmetric, trachea midline, No thyromegaly. CVS: RRR, No murmurs or gallops. Peripheral pulses 2+ and equal in all extremities RESP: Unlabored respiratory effort. Clear to auscultation bilaterally. GI: Nontender/Nondistended, No rebound or guarding. MSK:Extremities w/o deformity, Normal Active ROM Skin: Warm, Dry. No rashes or lesions. Neuro: Normal Muscle tone, No focal neurological deficits. Psych: Awake, Alert, & Oriented x3. Appears very anxious Const: Vital Signs, click to edit/add: Vital Signs - 24 hr 03/20/25 20:19 Temperature 97.7 F Pulse Rate [Left P ulse Oximeter] 90 Respiratory Rate 16 Blood Pressure [Ri ght Upper Arm] 141/99 H Pulse Oximetry 97 Oxygen Delivery Me thod Room Air Course Vital Signs Vital signs: Initial Vital Signs Temperature 97.7 F 03/20/25 20:19 Temperature Source Temporal Artery Scan 03/20/25 20:19 Pulse Rate 90 03/20/25 20:19 Pulse Rhythm Regular 03/20/25 20:19 Respiratory Rate 16 03/20/25 20:19 Blood Pressure 141/99 H 03/20/25 20:19 Blood Pressure Mean 113 H 03/20/25 20:19 Blood Pressure Position Sitting 03/20/25 20:19 Pulse Oximetry 97 03/20/25 20:19 Oxygen Delivery Method Room Air 03/20/25 20:19 Vital Signs Temperature 97.7 F 03/20/25 20:19 Pulse Rate 90 03/20/25 20:19 Respiratory Rate 16 03/20/25 20:19 Blood Pressure 141/99 H 03/20/25 20:19 Pulse Oximetry 97 03/20/25 20:19 Oxygen Delivery Method Room Air 03/20/25 20:19 Temperature 97.7 F 03/20/25 20:19 Pulse Rate 90 03/20/25 20:19 Respiratory Rate 16 03/20/25 20:19 Blood Pressure 141/99 H 03/20/25 20:19 Pulse Oximetry 97 03/20/25 20:19 Oxygen Delivery Method Room Air 03/20/25 20:19 Medications Administered Medications: Generic Name Dose Route Start Last Admin Trade Name Freq PRN Reason Stop Dose Admin Lactated Ringer's 1,000 mls @ 1,000 mls/hr 03/20/25 20:44 03/20/25 21:17 Lactated Ringers 1000 Ml IV 03/20/25 21:43 1,000 mls/hr .Q1H ONE Administration Ondansetron HCl 4 mg 03/20/25 20:48 03/20/25 21:17 Ondansetron 2 Mg/Ml Inj IVP 03/20/25 20:49 4 mg ONCE ONE Administration Medical Decision Making MDM Narrative Medical decision making narrative: Patient is a 24-year-old female presenting for nausea, vomiting and back pain. Back pain seems nontraumatic and may be related to musculoskeletal pain from her dry heaving. Will check a CBC, CMP, viral swabs, urinalysis shows check for any abnormalities. Will also give her Zofran for nausea and a L of fluids. Lab work shows white count 12.67 but this is likely normal considering her . Urinalysis does show signs of bacteriuria. Considering she is I will treat with antibiotics. Viral swabs are negative. Rest of her labs showed no concerning abnormalities. She is feeling much better after the Zofran and fluids. She is safe for discharge. She is agreeable to this plan. Zofran and Keflex prescribed you instymeds. Lab Data Labs: Lab Results 03/20/25 03/20/25 Range/Units 20:47 20:54 WBC 12.67 H (4.50-11.00) K/uL RBC 4.19 (4.00-5.20) m/uL Hgb 13.0 (12.0-16.0) gm/dL Hct 39.0 (33.0-51.0) % MCV 93 (80-100) fL MCH 31 (26-34) pg MCHC 33 (32-36) gm/dL RDW Coeff of Dre 12.9 (11.5-15.5) % Plt Count 224 (140-440) K/uL Neut % (Auto) 64.4 (42.0-72.0) % Lymph % (Auto) 24.6 (20-44) % [place] % (Auto) 8.1 (0.0-11.0) % Eos % (Auto) 2.2 (0.0-7.0) % Baso % (Auto) 0.5 (0.0-3.0) % Neut # (Auto) 8.20 H (1.7-7.0) K/uL Lymph # (Auto) 3.10 H (0.90-2.90) K/uL [place] # (Auto) 1.00 H (0.00-0.90) K/UL Eos # (Auto) 0.30 (0.00-0.50) K/uL Baso # (Auto) 0.10 (0.00-0.30) K/uL Abs Immat Gran (auto) 0.00 (0.00-0.30) K/uL Imm/Tot Granulo (auto) 0.2 % Sodium 136 (135-149) mmol/L Potassium 4.0 (3.6-5.1) mmol/L Chloride 104 (96-114) mmol/L Carbon Dioxide 24 (20-32) mmol/L Anion Gap 8 (7-15) mEq/L BUN 8 (5-24) mg/dL Creatinine 0.5 (0.5-1.5) mg/dL Estimated Creat Clear 181.31 Estimated GFR 134 ml/min Glucose 88 (60-115) mg/dL Calcium 9.4 (8.4-10.6) mg/dL Total Bilirubin 0.5 (0.1-1.5) mg/dL AST 22 (12-35) U/L ALT 22 (4-35) U/L Alkaline Phosphatase 43 (40-150) U/L Total Protein 7.5 (6.0-8.3) g/dL Albumin 4.5 (3.3-5.0) g/dL Urine Color Light yellow (Yellow) Urine Appearance Clear (Clear) Urine pH 7.0 (5.0-8.5) Ur Specific [place] 1.015 (1.000-1.030) Urine Protein Negative (Negative) Urine Glucose (UA) Negative (Negative) Urine Ketones Negative (Negative) Urine Blood Trace-intact A (Negative) Urine Nitrite Negative (Negative) Urine Bilirubin Negative (Negative) Urine Urobilinogen 0.2 (0.2-1.0) Ur Leukocyte Esterase Trace A (Negative) Urine RBC 0-2 (0-2) Urine WBC 2-5 (0-5) Ur Squamous Epith Cells None (None-Few) Urine Bacteria Many A (None) SARS-CoV-2 (PCR) Negative SARS-CoV-2 (Negative) Influenza Type A (PCR) Negative PCR FLU A (Negative) Influenza Type B (PCR) Negative PCR FLU B (Negative) RSV (PCR) Negative PCR RSV (Negative) Discharge Plan Discharge Clinical Impression: Hyperemesis gravidarum, Bacteriuria during Patient Disposition: Home, Self-Care Condition: Improved Instructions: Hyperemesis Gravidarum (ED), Urinary Tract Infection in (ED) Additional Instructions: Take the Zofran as needed for nausea. Take the Keflex for your UTI. Both these medications a category B. follow-up with your OB Gyne. Return for new or worsening symptoms. Prescriptions: No Action promethazine 12.5 mg tablet 12.5 - 25 mg PO Q6H PRN (Reason: nausea and vomiting) Qty: 30 1RF ondansetron 8 mg tablet,disintegrating 8 mg PO Q8H PRN (Reason: nausea/vomiting) Follow Up/Referrals: Provider,Not a Local [Primary Care Provider] - Stand Alone Forms: [employer] Info Instructions
[2025-03-20 21:04] LABS: Basophils Percent Auto 0.5 % (0.0-3.0); Eosinophils Percent Auto 2.2 % (0.0-7.0); Immature Granulocytes Pct Auto 0.2 %; Lymphocytes Percent Auto 24.6 % (20-44); Mean Corpuscular HGB Conc 33 gm/dL (32-36); Mean Corpuscular Hemoglobin 31 pg (26-34); Mean Corpuscular Volume 93 fL (80-100); Monocytes Percent Auto 8.1 % (0.0-11.0); Neutrophils Percent Auto 64.4 % (42.0-72.0); Platelet Count* 224 K/uL (140-440); RDW Coefficient of Variation % 12.9 % (11.5-15.5); Red Blood Count 4.19 m/uL (4.00-5.20); White Blood Count* 12.67 K/uL (4.50-11.00)
[2025-03-20 21:06] LABS: Slide Review Reflex No
[2025-03-20 21:13] LABS: Bacteria Urine Many; RBC Urine 0-2 (0-2)
[2025-03-20] MEDS: ONDANSETRON 2 MG/ML inj 4 MG IVP (21:17)
[2025-03-20] MEDS: LACTATED RINGERS 1000 ML 1,000 ML IV (21:17)
[2025-03-20 21:18] LABS: Albumin* 4.5 g/dL (3.3-5.0); Chloride* 104 mmol/L (96-114); Sodium* 136 mmol/L (135-149)
[2025-03-20 21:21] LABS: Alanine Aminotransferase* 22 U/L (4-35); Alkaline Phosphatase* 43 U/L (40-150); Anion Gap 8 mEq/L (7-15); Aspartate Amino Transferase* 22 U/L (12-35); Bilirubin Total* 0.5 mg/dL (0.1-1.5); Blood Urea Nitrogen* 8 mg/dL (5-24); Carbon Dioxide* 24 mmol/L (20-32); Creatinine* 0.5 mg/dL (0.5-1.5); Est. Creatinine Clearance* 181.31; Estimated Glomerular Filt Rate 134 ml/min; Total Protein* 7.5 g/dL (6.0-8.3)
[2025-03-20 21:22] LABS: Calcium* 9.4 mg/dL (8.4-10.6); Glucose* 88 mg/dL (60-115)
[2025-03-20 21:41] LABS: PCR FLU A Negative PCR FLU A (Negative); PCR FLU B Negative PCR FLU B (Negative); PCR RSV Negative PCR RSV (Negative); SARS PCR* Negative SARS-CoV-2 (Negative)
--- OUTSIDE RECORDS SUMMARY | 2025-03-21 17:36 | XMS_ITS | Encounter Summary ---
Author Organization [place] Address Formerly [facility] [place] [address] Care Team Providers Care Warehouseman Name Role Phone Dakotah Winslow MD Primary Care Provider [phone] Marlyn Brown MD Primary Care Provider Unavailable April Guzman MD Primary Care Provider [phone] Que Monteiro MD Unavailable Unavaila ble Que Monteiro MD Unavailable Unavaila ble No Ref-Primary, Physician Primary Care Provider Gynecology, [facility] Obstetrics & Primary C are Provider Unavailable No Ref-Primary, Physician Primary Care Provider [facility] Primary Care Provider + Reason for Visit * Reason Onset Date Comments MH/CD Inpatient 11/08/2014 Encounter Details Date Type Department Care Team (Late st Contact Info) Description 11/08/2014 Telephone [facility] Behavioral Health Intake [address] [place] [address] Generic, Behavioral Intake, MH/CD Inpatient Social History Tobacco Use Types Packs/Day Years Used Date Smoking Tobacco: Never Assessed [place] Depression Scale Answer Date Recorded Last EPDS Total Score Not on file 08/08/2022 The thought of harming myself has occurred to me . Never 08/08/2022 Adolescent Education Answer Date Record ed Getting School Help Needed Not on file 08/20 Comments No Sex and Gender Information Value Date Recorded Sex Assigned at Not on file Legal Sex Female 4:25 AM SPEAKER MOUNTER Gender Identity Not on file Sexual Orientation Not on file COVID-19 Exposure Response Date Recorded In the last 10 days, have yo u been in contact with someone who was confirmed or suspected to have Coronavirus/COVID-19? No / Unsure 08/03/2022 10:02 PM CDT documented as of this encounter Miscellaneous Notes * Telephone Encounter - Carlie Sandyen - 11/08/2014 10:14 AM CST S: SALEEM Styles at [facility], calling for psych bed for pt. B: Pt is a 14 yo female who presented to [facility] ED via EMS and father on 11/07/14 after ingesting 10 Abilify / Zoloft. Pt's relationship with her boyfriend ended the day prior, pt saw a picture on [employer] of her boyfriend kissing another girl. Pt was talking with friend and discussed taking pills. Pt's friend called police and father awoke to the police knocking on his door. HX cutting. Pt is being bullied at school and on social media. Hx IP MH admission post suicide attempt via OD at [facility] in October 2014 - was [...] family meetings, etc. Mariam Alcala CNP phone [phone]. A: Voluntary, parent will sign in. Infection screening complete. R: Dr Durán completed MD to MD with Mariam Alcala NP. Accepted care / 4a KER MOUNTER KER MOUNTER documented in this encounter Plan of Treatment Not on file documented as of this encounter Visit Diagnoses Not on filedocumented in this encounter Additional Health Concerns Infection Onset Date Last Indicated Resolved Time Influenza 11/06/2023 11/06/2023 11/13/2023 11:3 9 PM SPEAKER MOUNTER Rule Out COVID-19 08/05/2024 08/05/2024 08/06/2024 11:55 AM CDT documented as of this encounter Care Teams Warehouseman Relationship Specialty Start Date End Date Dakotah Winslow MD [place] [address] [place] [address] PCP - General Family Practice 10/29/13 07/25/16 Marlyn Brown MD [place] [address] [place] [address] PCP - General Pediatrics 07/26/16 08/27/16 April Guzman MD [address] [place] [address] PCP - General business intelligence etl developer 08/28/16 07/18/19 Que Monteiro MD PCP - Assigned PCP 06/30/17 01/06/19 No Ref-Primary, Physician PCP - General 07/19/19 12/26/21 Gynecology, [facility] [place] Obst[facility] & PCP - General business intelligence etl developer 12/27/21 02/12/23 No Ref-Primary, Physician PCP - General 11/06/23 02/07/[facility] [id number] [place] [phone] PCP - General 02/08/25 Que Monteiro MD Assigned PCP 06/30/17 05/28/20 documented as of this encounter
--- OUTSIDE RECORDS SUMMARY | 2025-03-21 17:36 | XMS_ITS | Clinical Summary ---
Author Organization [facility] Address [address] [place] [address] Care Team Providers Care Life Skills Coach Name Role Phone Needs Pcp, Assignment Primary Care Provider Source Comments You are receiving this document as you are listed as the primary care provider,follow-up provider, or the patient has been referred to you for consultation.This is in compliance with the Medicare andTri[facility] Hospitalcaid EHR Incentive Program,which states Providers who transition their patient to another setting of careor provider of care or refers their patient to another provider of care shouldprovide summary care record for each transition of care or referral. [facility] Allergies Active Allergy Reactions Criticality Noted Date [...] time as taking vitamin. 90 Tablet 3 06/19/20 Active Additional Information Patient not taking.Reported on 03/18/2025 NIFEdipine XL (PROCARDIA XL) 30 MG 24 hour release tabletIndications :Supervision of high risk in third trimester Take 1 Tablet (30 mg) by mouth daily. 90 Tablet 3 07/10/20 Active Additional Information Patient not taking.Reported on 07/26/2022 ondansetron (ZOFRAN-ODT) 8 MG disintegrating tablet Take 1 Tablet (8 mg) by mouth every 8 hours as needed. Active Blood Pressure Monitoring (BLOOD PRESSURE CUFF)Indications: Elevated blood pressure reading without diagnosis of hypertension Use 1 Device two times daily as needed. 1 Each 07/05/20 22 025 Discontinue d(*Patient decision or formulary issue) Norethindrone, Contraceptive, (ORTHO MICRONOR) 0.35 MG tabletIndications :Uses contraception Take 1 Tablet (0.35 mg) by mouth daily. 84 Tablet 4 10/03/20 22 025 Discontinue d(*Patient decision or formulary issue) Active Problems Problem Noted Date Diagnosed Date cardiac echogenic focus 04/06/2022 Encounter for supervision of normal first in first trimester 02/01/2022 Vapes nicotine containing substance 02/01/2022 Intractable headache 02/01/2022 Depression, major, recurrent, moderate 5 History of suicide attempt 07/19/2015 Comments Yes Resolved Problems Problem Noted Date Diagnosed Date Resolved Date Depression 08/16/2015 02/01/2022 Initiation of OCP (BCP) 06/13/2015 12/0 07/2021 Encounters Date Type Department Care Team Description 03/19/2025 E-Visit [facility] Obstetrics/Gynecolog y [address] [place] [address] Mychart, Generic Provider 03/18/2025 7:45 AM CDT Phone Visit [facility] Obstetrics/Gynecolog y [address] [place] [address] Nurse Intake 2, [id number] Ob Missed menses (Primary Dx) 03/18/2025 E-Visit [facility] Obstetrics/Gynecolog y [address] [place] [address] Mychart, Generic Provider 02/08/2025 Nurse Triage [place] [address] Obstetrics/Gynecolog y [address] [place] [address] Yanique Torres MD Concerns from Last 3 [...] Used Date Smoking Tobacco: Former Smokeless Tobacco: Never Tobacco Cessation:Counseling Given: Not Answered Alcohol Use Standard Drinks/Week Comments Not Currently 0 (1 standard drink = 0.6 oz pur e alcohol) Depression Answer Date Recor ded Last EPDS Total Score 6 12/12/2024 Last EPDS Self Harm Result Not on file 12/12 Comments Yes Sex and Gender Information Value Date Recorded Sex Assigned at Not on file Legal Sex Female 6:09 AM CDT Gender Identity Not on file Sexual Orientation Not on file 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 Not on file Not on file Not on fi le Last Filed Vital Signs Vital Sign Reading Time Taken Comments Blood Pressure 120/73 11/16/2022 9:49 AM RESIDENTIAL ADVISOR Pulse 80 11/16/2022 9:49 AM RESIDENTIAL ADVISOR Temperature 37.6 C (99.7 F) 02/15/2016 12:00 PM CDT Respiratory Rate 16 02/15/2016 12:00 PM CDT Oxygen Saturation - - Inhaled Oxygen Concentration - - Weight 75.8 kg (167 lb) 11/16/2022 9:49 AM RESIDENTIAL ADVISOR Height 175.3 cm (5' 9) 02/01/2022 1:04 PM CDT Body Mass Index 24.66 02/01/2022 1:04 PM CDT Plan of Treatment Upcoming Encounters Date Type Department Care Team (Late st Contact Info) Description 04/02/2025 10:15 AM CDT Appointment [facility] [address] [place] [phone] Peri Wells APRN, CNM [address] [place] [phone] 04/02/2025 1:30 PM CDT Appointment [place] [address] Obstetrics/Gynecology [id number] [place] [phone] [place] [address] [place] [phone] 05/03/2025 9:00 AM CDT Appointment [facility] [address] [facility], [address] [place] [phone] [place] [address] [place], [place] [phone] Health Maintenance Due Date Last Done Comments HPV Vaccine (1 - 3-dose series) 2015 Adult Preventive Visit 2018 DTaP/Tdap/Td Vaccine (7 - Tdap) 07/01/2022 07/01/2012, 02/07/2005, 06/01/2003, Additional history exists Chlamydia 02/01/2023 02/01/2022, 05/05, 06/28/2016, Additional history exists COVID-19 Vaccine ( season) 2024 Cervical Cancer Screening 02/01/2025 02/01/2022 Influenza Vaccine (Season Ended) 2025 Zoster/Shingles Vaccine (1 of 2) 2050 HepB Vaccine Completed 02/17/2001, 04/2000, 2000 Hib Vaccine Completed 09/16/2001, 11/04, 2000, Additional history exists IPV (Polio) Vaccine Completed 02/07/2005, 2000, 2000, Additional history exists MCV4 Vaccine Aged Out 07/01/2012 No longer eligi ble based on patient's age to complete this topic HIV Screening (Preventive Services) Completed 05/21/2022 Hep C Screening (Preventive Services) Completed 05/21/2022 HepA Vaccine Aged Out No longer eligi ble based on patient's age to complete this topic Meningococcal B Vaccine Aged Out No l onger eligible based on patient's age to complete this topic Pneumococcal Vaccine Aged Out No long er eligible based on patient's age to complete [...] Negative (Non Reactive) 05/21/2022 4:05 PM CDT [facility] Comment:HIV-1 p24 Antigen an d HIV-1/HIV-2 Antibody not detected Blood Venipuncture / Unknown 05/21/2022 10:04 AM CDT 05/21/2022 10:04 AM CDT Yanique Torres MD LAB_1 Final Result Performing Organization Address [facility] Co de Phone Number [facility] [address] * Hepatitis C Antibody, with Reflex (05/21/2022 10:04 AM CDT) Hepatitis C Antibody Negative (Non Reactive) Negative (Non Reactive) 05/21/2022 4:05 PM CDT [facility] Comment:Antibodies to HCV no t detected. Does not exclude the possiblity of exposure to HCV. Blood Venipuncture / Unknown 05/21/2022 10:04 AM CDT 05/21/2022 10:04 AM CDT Yanique Torres MD LAB_1 Final Result Performing Organization Address [facility] Co de Phone Number [facility] [address] * PAP Test (02/01/2022 1:47 PM CDT) Case Report Pap Case: [id number] Authorizing Provider: Zahraa Lei APRN, Collected: 02/01/2022 1347 AEROBICS TEACHER Ordering Location: [facility] Received: 02/01/2022 1816 Services-SEAT BUILDER First Screen: Nicole Sherwood CT (ASCP) Specimen: Pap Test, Routine, Cervix/Endocervix 02/09/2022 9:55 AM CDT [facility] Pap Specimen Adequacy Satisfactory for evaluation, endocervical/phillips sformation zone component absent. 02/09/2022 9:55 AM CDT [facility] Pap Interpretation (NILM) Negative for intraepithelial lesion or malignancy. 02/09/2022 9:55 AM CDT [facility] at 0955 CDT Pap Disclaimer The Pap test is a screening test designed to aid in the detection of cervical cancer and its precursor lesions. It is not a diagnostic procedure and should not be used as the sole means of detecting cervical cancer. Both false-positive and false-negative results may occur. 02/09/2022 9:55 AM CDT [facility] Gross Description The specimen is received in SurePath fixative and properly labeled. 1 Pap-stained SurePath slide is prepared. 02/09/2022 9:55 AM CDT [facility] Embedded Images 9:55 AM CDT [facility] Other Specimen Type ENTIRE ENDOCERVIX / Unknown 02/01/2022 1:47 PM CDT 02/01/2022 6:16 PM CDT Comment:LMP: Patient's last menstrual period was 11/16/2021. Zahraa Lei APRN, CNP LAB PATHOLOGY Final Result Performing Organization Address City/[facility]/ZIP Co de Phone Number [facility] [address] * Chlamydia & GC (14 Years and Older) - Vagina (02/01/2022 1:47 PM CDT) Chlamydia Trachomatis STD Not Detected Not Detected 02/02/2022 1:40 PM CDT [facility] N. gonorrhoeae STD Not Detected Not Detected 02/02/2022 1:40 PM CDT [facility] Swab STD SPECIMEN FROM VAGINA / Unknown Non-blood Collection / Unknown 02/01/2022 1:47 PM CDT 02/01/2022 6:12 PM CDT Narrative [facility] - 02/02/2022 1:40 PM CDT Test performed by Breast Buffer Mediated Amplification (TMA). us Zahraa Lei APRN, CNP LAB_1 Final Result [facility] [address] [phone] from Last 3 Months or Most Recently Relevant to Health Maintenance Insurance [id number] [place] [id number] [facility] [address] [place] [id number] [address] [place] [id number] Care Teams Life Skills Coach Relationship Specialty Start Date End Date Needs Pcp, [facility] [place] [address] PCP - General 09/28/16
--- OUTSIDE RECORDS SUMMARY | 2025-03-21 17:36 | XMS_ITS | Encounter Summary ---
Author Organization [facility] Address [facility] [place] [address] Care Team Providers Care Boiler Or Engine Operator Name Role Phone No Ref-Primary, Physician Primary Care Provider Clinic, [facility] Primary Care Provider + Reason for Visit * Reason Onset Date Comments Call Back 03/03/2024 Encounter Details Date Type Department Care Team (Late st Contact Info) Description 03/03/[address] [facility] [id number] [place] [phone] Sunita Huerta PA-C [id number] [place] [phone] Call Back Social History Tobacco Use Types Packs/Day Years Used Date Smoking Tobacco: Every Day Cigarettes Vaping Device Smokeless Tobacco: Never Alcohol Use Standard Drinks/Week Comments No 0 (1 standard drink = 0.6 oz pur e alcohol) in past [place] Depression Scale Answer Date Recorded Last EPDS Total Score Not on file 08/08/2022 The thought of harming myself has occurred to me . 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
--- OUTSIDE RECORDS SUMMARY | 2025-03-21 17:36 | XMS_ITS | Encounter Summary ---
Author Organization [employer] Address [address] [place] [address] Care Team Providers Care Dough Braker Name Role Phone Needs Pcp, Assignment Primary Care Provider Reason for Visit * Reason Comments Concerns Encounter Details Date Type Department Care Team (Late st Contact Info) Description 02/08/2025 Nurse Triage [place] [address] Obstetrics/Gynecology [address] [place] [phone] [place] [address] [place], [place] [phone] Concerns Social History Tobacco Use Types Packs/Day [...] - Abdominal Pain Less Than 20 Weeks [id number] documented in this encounter Plan of Treatment Upcoming Encounters Date Type Department Care Team (Late st Contact Info) Description 04/02/2025 10:15 AM CDT Appointment [facility] [address] [place] [phone] Peri Wells APRN, CNM [address] [place] [phone] 04/02/2025 1:30 PM CDT Appointment [facility] [address] Obstetrics/Gynecology [address] [place] [phone] Peri Wells APRN, CNM [address] [place] [phone] 05/03/2025 9:00 AM CDT Appointment [facility]ARC TRIMMER [address] [facility], [address] [place] [phone] [place] [address] [place] [address] documented as of this encounter Visit Diagnoses Not on filedocumented in this encounter Care Teams Dough Braker Relationship Specialty Start Date End Date Needs Pcp, [place] [address] PCP - General 09/28/16 documented as of this encounter
--- OUTSIDE RECORDS SUMMARY | 2025-03-21 17:36 | XMS_ITS | Encounter Summary ---
Author Organization [facility] Address [address] [place] [address] Care Team Providers Care Plan Rep Name Role Phone Needs Pcp, Assignment Primary Care Provider Encounter Details Date Type Department Care Team (Late st Contact Info) Description 03/19/2025 [facility] [address] [facility]. 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 on file Not on file Not on fi le documented as of this encounter Plan of Treatment Upcoming Encounters Date Type Department Care Team (Late st Contact Info) Description 04/02/2025 10:15 AM CDT Appointment [facility] [address] [place] [address] Peri Wells APRN, CNM [address] [place] [phone] 04/02/2025 1:30 PM CDT Appointment [place] [address] Obstetrics/Gynecology [address] [place] [address] [place] [address] [place] [phone] 05/03/2025 9:00 AM CDT Appointment [facility]CYBER SECURITY SPECIALIST [address] [facility], [address] [place] [phone] [place] [address] [place], [place] [phone] documented as of this encounter Visit Diagnoses Not on filedocumented in this encounter Care Teams Plan Rep Relationship Specialty Start Date End Date Needs Pcp, [place] [address] PCP - General 09/28/16 documented as of this encounter
--- OUTSIDE RECORDS SUMMARY | 2025-03-21 17:36 | XMS_ITS | Encounter Summary ---
Author Organization [facility] Address [address], [place] [address] Care Team Providers Care Table Cut Off Saw Operator Name Role Phone Needs Pcp, Assignment Primary Care Provider Reason for Referral * Procedure/Equipment (Routine) - Incomplete Specialty Diagnoses / Procedures Referred By Contac t Referred To Contact Diagnoses Missed menses Procedures US OB <14 Weeks W EV Single Peri Wells APRN, CNM [address] [address] Phone: tel: fax: Referral ID Status Reason Start Date Expiration Date V isits Requested Visits Authorized [id number] Incomplete 03/26/2025 06/25/2026 1 1 Reason for Visit * Reason Comments Intake Encounter Details Date Type Department Care Team (Late st Contact Info) Description 03/18/2025 7:45 AM CDT Phone [facility] [address] 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 [place]! Please remember to call ultrasound scheduling at [phone] to get your early ultrasound completed just prior to your 1st visit scheduled for the at 1:30 PM - you could even possibly do the same day at 12:45! Thank you! Aleida Thank you for your time today. It was so nice to talk with you and we look forward to partnering with you in your care. A lot of information was covered today and there will be even more during your first visits, so we've put together some resources & reminders for you to review... Helpful Numbers: [phone]: [facility] OB Call Center (use this number to schedule, change or cancel appointment, or to speak with a nurse with questions or concerns) [phone]: PN Radiology (scheduling for routine ultrasounds) [phone]: PN Lab scheduling (all your testing and laboratory needs) Next Steps: Future Appointments Provider Department Center 04/02/2025 1:30 PM Peri Wells APRN, [facility] [address] Obstetrics/Gynecology PN [facility] 05/03/2025 9:00 AM Anuja Lorenzo MD [facility]-BIG DATA HADOOP DEVELOPER [facility]TR[facility] It is important to be sure that you have an appointment for an ultrasound before your first in-person visit. These ultrasounds can often be done the same day as your in-person appointment or, if need be, a few days before. RADIOLOGY SCHEDULING - Call this number to schedule, change, cancel, or confirm yourultrasound appointment. VISIT(S) Please keep in mind that your partner is welcome to come with you to visits. When you are initially roomed, your partner will wait in the lobby and then will join shortly after. With an uncomplicated routine appointments generally happen every four weeks during the first two trimesters of . Starting at week 28 until delivery, appointments will be more frequent. Every is different, and our staff will guide you as your progresses to help keep your appointments on track. PN OB Call Center - Call this number for assistance with appointment scheduling. ROUTINE LABS Labs will be ordered by your provider at different stages of your beginning with your first in-person appointment. Typically you will receive your results through your CourseHorsehart at the same time as your provider and you may even see them before your provider has a chance. Don't worry - if there are any additional needs or the results are abnormal or concerning, the clinic will get in touch with you. Typically, if everything is normal or as expected the provider will just review at your next routine appointment. MEDICATIONS Please contact your prescribing clinicians to notify them of your and discuss any medications you are currently taking. They may recommend changes or ask that you discuss with your OB clinician at your next appointment. It is not recommended to start a new medication or supplement without first consulting with your care team (this does not typically include things like antibiotics prescribed by another doctor). GemPhonesHART (online patient portal and medical record) During your , we highly encourage and rely on your use of Survata. This provides electronic access to, not only your personal medical information, but also your care team. Please take time to become familiar with using this great tool. Some things normally used during care include: Test Results: Survata allows you to have access to results for the common blood and other laboratory tests completed during your . If everything is normal, this is typically the only notice sent. If results are abnormal or additional testing is needed, your care team will get in contact with you. Questions/Messages: You can send non-urgent questions to your provider via Survata. Please note, there can be a delay, so if you are experiencing any symptoms it is best to call the nurseline. Appointments: You can also use Survata to review dates and times of appointments you have scheduled. For help with your CourseHorsehart, please call the Survata Patient Support team at [phone]. For information on nutrition and vitamins visit: Nutrition During ACOG Visit and review our bruce and the e-book of Your Guide to : Questa for our free bruce called ???myHealthyPregnancy?? powered by AnyLeaf. The bruce offers many quick articles and videos on , labor, , , and newborncare. Scan the following QR code: Or click this link: myHealthyPregnancy tracker bruce [facility] Copy & paste the following link to view the Your Guide to e-book: [email or web address] - ABOUT THE BOOK: This is the first book (1 of 3) that you will receive during your . It focuses on the earlier stages of and is packed with information. You will also receive a hard copy (unless you prefer to just use the electronic version) of this book at your first in-person appointment. Having a chance to review this ahead of time may help you generate questions for your first visit. - VIDEOS: The e-book also has videos available on many topics that may be of interest to you. - SAVE OR SHARE: Feel free to save and share the link for the book. This makes it easier to find and also helps partners feel more involved and informed during your . - COMMON/HELPFUL TOPICS: - Genetic Screening/Testing Options - Page 10 - Symptoms & Body Changes - Benefits of Exercise - Sexual Activity - Dental Hygiene - Travel - Feeding Plans/ Resources - Working/Lifestyle Considerations - Potential Risks and How to Avoid (for example, teratogens, listeriosis, & toxoplasmosis) - Nutrition - What to Eat/Not Eat: Avoid high glycemic content foods Adequate calcium Avoid nitrites - Weight Gain: Remember the information in the book is based on normal averages. Your clinician will discuss with you your recommendations for based on things like your personal health and BMI. - [facility] Fish Guides: [email or web address]/environment/fish/[email or web address] [email or web address]/environment/fish/[email or web address] [email or web address] CONTACT INSURANCE: Early is a great time to verify your insurance benefits and estimated costs. Individual insurance plans can vary, so it is best to contact your carrier directly for the most accurate information. If you have any difficulties or questions, don't hesitate to contact us at . Nursing support is available 24 hours a day, 365 days a year. We want to make sure that you feel supported and stay healthy. Thank you, again, for choosing us to partner in your care! [facility] NAUSEA IN : Increase fluids (e.g., water, ice chips, sports drinks by 2 liters a day until urine is clear). Drink fluids slowly, in small sips. Try taking your vitamin with food/meal and at bedtime. Try a chewable form of a vitamin. If you need to discontinue the vitamin for a short time, continue taking a folic acid supplement (600-1000mcg/day). Herbal teas may be helpful: Peppermint, Spearmint, Anise, Chamomile, Red Raspberry Elk Garden, and Fennel. Honey can be used as sweetener. Take OTC bhavana capsules 250 mg 4 times per day. OK to use Vitamin B6 25 to 50 mg. Initial dose is 25 mg by mouth every 6-8 hrs - max dose of 100mg/day. OK to use Unisom with Doxylamine: 12.5 mg (1/2 of a 25 mg tablet) by mouth up to 4 times per day. Contradicted with emphysema or chronic bronchitis. Unisom can make you sleepy, so you may want to consider taking later in the day. If other OTC methods fail, you may want to discuss prescription anti-emetic medications with your provider. As always, please contact the nurse line with any questions or concerns. * Attachments The following attachments cannot be sent through Care Everywhere. * : General Info (Austrian) * : Visits: General Info (Austrian) * : When to Call (Up to 20 Weeks): General Info (Austrian) * !Dyrh-ity-Yjgftqw Medications: To treat common symptoms during (Austrian) * !Nausea in (Austrian) * !Marijuana and Your Baby (Austrian) * : Quitting Smoking and Vaping (Austrian) documented in this encounter Progress Notes * Aleida Capps RN - 03/18/2025 7:45 AM CDT Due to time constraints (pt has less than 30 mins available), unable to fully complete the following topics: Menstrual Tracking History: Habits and Concerns Family History Genetic Screening RN OB Intake Visit Tiana Melara is a 24 y.o. female, : Was unplanned, but welcome Was infertility treatment needed? No Preferred Care Locations: Clinic Preference: [facility] [MD/FUEL MANAGER] and [place] [MD/FUEL MANAGER] [facility] : [facility] Provider care models, preferred locations, and expected plan for care reviewed with patient. 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 Other important social information/history: none Does patient have Type 1 or 2 diabetes? No CareEverwhere/External Records: CareEverywhere available and up to date. Field Technical Specialist History: PreGravida Weight: 170 lb Number of living children: 1 OB History Para Term AB Living 4 1 1 0 2 1 SAB IAB Ectopic Multiple Live Births 0 2 0 0 1 # Outcome Date GA Lbr Braeden/2nd Weight Sex Type Anes PTL Lv 4 Current 3 Term 08/05/22 37w3d 08:30 02:11 7 lb 8.5 oz (3.415 kg) F Vag-Spont EPI N RENATA Complications: Other Excessive Bleeding, Encounter for induction of labor, Gestational hypertension Name: Jacquelin Apgar1: 9 Apgar5: 9 2 IA2020 Comments: D&C 1 IAB 2015 Comments: D&C Obstetric Comments 08/2022 - PPH. Menstrual History: LMP: Patient's last menstrual period was 01/01/2025 (exact date). was unplanned. Was taking OCP as prescribed, so pt is unsure how this happened. +UPT: 01/30/25 Menstrual Tracking: *Not fully complete due to time constraints.* Cytology History: Last cytology: 01/2022 - ROD Montiel states she had cytology completed at [facility], but speech writer unable to find documentation within chart - including Care Everywhere. Current Symptoms: Pt states she is experiencing nausea and vomiting. PUQE assessment completed - please review scoring. (Patient's nausea and vomiting objectively assessed through patient's responses to the Modified Unique Quantification of Emesis (PUQE) score: On an average day, for how long do you feel nauseated or sick to your stomach? >6 hours (5 points) On an average day, how many times do you vomit or throw up? 5-6 (4 points) On an average day, how many times do you have retching or dry heaves without bringing anything up? 1-2 (2 points) PUQE Scorin-12- Moderate nausea and vomiting . Patient education for Nausea and Vomiting in , and Morning Sickness to be provided to patient in AVS. Denies any current vaginal bleeding, pelvic pain, and other concerning symptoms. Home care advice and interventions provided to patient from approved Patient Education materials. Patient reminded of nurseline resource for new, worsening, or changing symptom(s) support and management. Contact information provided. GENERAL HEALTH STATUS & HISTORY: Past Medical History: Diagnosis Date Anxiety (HRC) Asthma (HRC) Current every day vapor product user Working on quitting with current (as of 03/18/25) - has been using (down to 1-3 times/day)to help with the N/V - will try Clinical Resources within the AVS/MyChart to both help the N/V & to quit vaping. Depression History of gestational hypertension 2021 History of hemorrhage 08/05/2022 EBL 500 mL. History of hypertension 08/2022 Marijuana use during Working on quitting with current (as of 03/18/25) - has been using THC gummies to help with the N/V - will try Clinical Resources within the AVS/MyChart to both help the N/V & quit marijuana use. Urinary tract infection, site not specified Non-recurrent. Infection History: Varicella Immune (Vaccine) - Tiana states she had been vaccinated, but had a titer done that indicated she is NOT immune - speech writer unable to find antibody testing within chart - including Care Everywhere. Surgical/Procedure History: Past Surgical History: Procedure Laterality Date DILATION AND CURETTAGE IAB - x2 - 2015 & 2020 WISDOM TEETH EXTRACTION Medications: Current Outpatient Medications Medication Sig Dispense Refill ondansetron (ZOFRAN-ODT) 8 MG disintegrating tablet Take 1 Tablet (8 mg) by mouth every 8 hours as needed. Vit-Fe Fumarate-FA (/FOLIC ACID OR) (Patient not taking: Reported on 03/18/2025) Pt medications, allergies and preferred pharmacy reviewed. Vitamin: Patient is not currently taking a vitamin. Teaching provided on options for Rx or OTC vitamin. Experiencing a lot of N/V - will try the Clinical References and begin a vitamin in the evening with food - possibly a gummy. Pt agrees to call OB clinicians with questions or concerns regarding medication use throughout thispregnancy and to notify any other prescribing clinicians of status. 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 Sexual activity: Yes Partners: Male control/protection: OCP Comment: Nehemias (FOB/SO) - Not planned, but welcome. Was taking OCP as prescribed, so pt is unsure why the OCP did not work. Other Topics Concern Bike Helmet No City Water Yes Exercise No Guns in home No Seat Belt Yes Special Diet No Weight Concern No FAMILY/GENETIC STATUS, HISTORY, & RISK FACTORS: *Not complete due to time constraints.* COMPLETED WITH INTAKE VISIT: Ultrasound: US ordered per standing order. Pt instructed US should be completed before next appointment and as close to in-person visit as possible. Attempted to transfer Tiana to radiology scheduling after intake was completed, but call dropped - pt was short on time - advised to call ultrasound via Survata. Education Topics Discussed and Encouraged for Review from Your Guide to and HP/PN approved Patient Education Resources: Diet and Nutrition: encourage fruits, vegetables, and low-fat protein sources avoid high glycemic index foods and simple carbs importance of adequate calcium discussed eating fish in listeriosis infection (including sources and prevention of Listeriosis) avoid nitrites in processed meats [facility] program discussed Medications: Patient provided additional education piece of Zgji-ltr-Dumigow medications safe for use in . Sexual activity during discussed. Dental hygiene during discussed. Avoid use of alcoholic beverages, smoking, and recreational drugs reminder provider. Patient provided clinical resources, as applicable. Environmental and work considerations and overall lifestyle choices in reviewed with patient. Benefits of exercise during reviewed. Patient encouraged to maintain regular physical activity. /Childbirth classes and options discussed. At next visit, provider to review records and establish formal plan of care. Book & Bruce: Patient provided information on how to access Your Guide to e-book and the free myHealthyPregnancy Bruce. MyChart: Patient given guidance to use Survata to message care team and review results during theirpregnancy. Additional links/resources sent for patient to review. Nurseline: Pt instructed to call nurseline with changes, questions, or concerns. All other standard OB educational resources reviewed with patient, as well as ways to access or obtain. Pt verbalizes understanding and agrees with plan of care. No further questions at this time. Patient reminded of nurseline access 27/05. coning machine operator Visit completed - March 18, 2025 Grizzlyman: Not Applicable Length of appointment: 27 minutes not including chart review or visit documentation. documented in this encounter Plan of Treatment Upcoming Encounters Date Type Department Care Team (Late st Contact Info) Description 04/02/2025 10:15 AM CDT Appointment [facility] [address] [place] [phone] Peri Wells APRN, CNM [address] [phone] 04/02/2025 1:30 PM CDT Appointment [facility] [address] Obstetrics/Gynecology [address] [place] [phone] [place] [address] [phone] 05/03/2025 9:00 AM CDT Appointment [facility]-BIG DATA HADOOP DEVELOPER [address] [facility], [address] [place] [phone] [place] [address] [place], [place] [phone] Scheduled Orders Name Type Priority Associated Diagnoses Orde r Schedule US OB <14 Weeks W EV Single Imaging New Routine Missed menses Expected: 03/26/2025 (Approximate), Expires: 06/18/2025 documented as of this encounter Visit Diagnoses Diagnosis Missed menses- Primary Absence of menstruation documented in this encounter Care Teams Table Cut Off Saw Operator Relationship Specialty Start Date End Date Needs Pcp, [place] [address] PCP - General 09/28/16 documented as of this encounter
--- OUTSIDE RECORDS SUMMARY | 2025-03-21 17:36 | XMS_ITS | Encounter Summary ---
Author Organization [facility] Address [address] [place] [address] Care Team Providers Care Cost Manager Name Role Phone Needs Pcp, Assignment Primary Care Provider Encounter Details Date Type Department Care Team (Late st Contact Info) Description 03/18/2025 [facility] [address] 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 on file Not on file Not on fi le documented as of this encounter Plan of Treatment Upcoming Encounters Date Type Department Care Team (Late st Contact Info) Description 04/02/2025 10:15 AM CDT Appointment [facility] [address] [place] [address] Peri Wells APRN, CNM [address] [place] [phone] 04/02/2025 1:30 PM CDT Appointment [place] [address] Obstetrics/Gynecology [address] [place] [address] [place] [address] [place] [phone] 05/03/2025 9:00 AM CDT Appointment [facility] [address], [address] [place] [phone] [place] [address] [place], [place] [phone] documented as of this encounter Visit Diagnoses Not on filedocumented in this encounter Care Teams Cost Manager Relationship Specialty Start Date End Date Needs Pcp, [place] [address] PCP - General 09/28/16 documented as of this encounter
--- OUTSIDE RECORDS SUMMARY | 2025-03-21 17:36 | XMS_ITS ---
Author Organization [facility] Address [address] [place] [address] Care Team Providers Care Senior Patrol Agent Name Role Phone None, No PCP Primary Care Provider UnavailNino Baker Unavailable [phone] Nanci Lnyn Unavailable REASON FOR VISIT cysts // KLS After Medications Medication SIG (Take, Route, Frequency, Duration) [...] g Encounters Encounter Location Date Provider Diagnosis [facility] [address] [place] [address] 02/22/2025 Nanci Guzman Encounter for supervision of other normal , unspecified trimester Z34.80 Assessments Encounter Date Diagnosis (ICD Code) Assessment Notes Treatment Notes Treatment Clinical Notes Section Notes 02/22/2025 Encounter for supervision of other normal , unspecified trimester (ICD-10 - Z34.80) Plan Of Treatment Next Appt Details Follow Up: prn, Reason: Progress Notes * Twyla ELENAeDOB:[birth year] (24 yo F)Acc No.[id number]:02/22/2025 Patient: Tiana BRITO Provider: Gracia Guzman MD :2000 A ge:24 Y S ex:Female Date:02/22/2025 Address:[address] [place] [address] [address] [place], [place]-[phone] Pcp:No PCP None Subjective: * Chief Complaints: * 1 . cysts // KLS After. * HPI: I nterim History: Patient here for Dating ultrasound. * Medical History: * Medications: T aking [...] MOUTH EVERY DAY Oral Objective: * Vitals: * Examination: * General Examination: S ee scanned report. Assessment: * Assessment: 1. E ncounter for supervision of other normal , unspecified trimester - Z34.80 (Primary) Plan: * Treatment: * Procedure Codes: 7 6801 OB US < 14 WKS, SINGLE FETUS, 78509 TRANSVAGINAL US, OBSTETRIC * Follow Up: p rn * Images: Billing Information: * Visit Code: * Procedure Codes: 25126 OB US < 14 WKS, SINGLE FETUS. 13138 TRANSVAGINAL US, OBSTETRIC. * Sign off status: Completed true * Provider: Gracia Guzman MD Date: 0 02/22/2025 Generated for Paulette freeman/Evans/Alecitting on: 0 03/21/2025 05:35 PM CDT History and Physical Notes * HPI (History of Present Illness) Category Sub-Category Detail Notes Category Not es Interim History Patient here for Dating ultrasound Examination Category Sub-Category Detail Notes Category Not es *General Examination See sca nned report
--- OUTSIDE RECORDS SUMMARY | 2025-03-21 17:37 | XMS_ITS ---
Author Organization [facility] Address 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 Oral for 7 Days Not-Taking Ondansetron 8 MG Oral for 7 Days Active Social History Tobacco Use: Social History [...] user? Yes V ape Section Notes: Vape Vital Signs Blood pressure systolic 120 mm Hg 02/23/20 25 Blood pressure diastolic 86 mm Hg 025 Height 67.5 in 02/22/2025 Weight 171 lbs 02/22/2025 BMI 26.38 kg/m2 02/22/2025 Encounters Encounter Location Date Provider Diagnosis [facility] [address] [place] [address] 02/22/2025 Nanci Guzman Cyst of ovary, unspecified laterality N83.209 and with inconclusive viability, single or unspecified fetus O36.80X0 Assessments Encounter Date Diagnosis (ICD Code) Assessment Notes Treatment Notes Treatment Clinical Notes Section Notes 02/22/2025 Cyst of ovary, unspecified laterality (ICD-10 - N83.209) 02/22/2025 with inconclusive viability, single or unspecified fetus (ICD-10 - O36.80X0) 02/22/2025 Other 1. She is planning to deliver at [place]. She will contact us for records. 2. Discussed ultrasound Plan Of Treatment Treatment Notes Assessment Notes Other 1. She is planning to deliver at [place]. She will contact us for records. 2. Discussed ultrasound Progress Notes * Twyla ELENAeDOB:[birth year] (24 yo F)Acc No.[id number]:02/22/2025 Patient: Tiana BRITO Provider: Gracia Guzman MD :2000 A ge:24 Y S ex:Female Date:02/22/2025 Address:[address] [place] [address] [address] [facility] Pcp:No PCP None Subjective: * Chief Complaints: * 1 . cyst FU. 2. Pt is . 3. Concerns how cyst is doing. 4. 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 * HPI: * General: Patient presenting for ultrasound follow up. She had a suprise when she went to the ER and primary. She isn't having any bleeding at this time. She is planning to deliver at [place]. She has appointment saturday with them. LEBRON: 10/10/25: 7+1. * Medical History: D epression/ anxiety, Anemia, Bladder infections, Asthma. * Smoke Tester History: D ate of Last Period: 0 12/13/2022. B irth Control: N one. S exual Activity C urrently sexually active, male partner. S exually Tranmitted Disease (STD) N one. A bnormal Pap Smear N ever Had One. * OB History: G PAL: G [id number]. P regnancy # 1: 2 016, Elective . P regnancy # 2: 2 022, Elective . P regnancy # 3: 2 022, [id number] , normal spontaneous vaginal delivery ()37 weeks, gestational hypertension. * Surgical History: w isdom teeth extraction . * Hospitalization/Major Diagno stic Procedure: Sarah harperies Past Hospitalization. * Family History: M other: diagnosed with Breast Cancer in 47. M aternal Grand Father: diagnosed with Heart Disease in 50. * Social History: T obacco Use: T obacco Use/Smoking A re you a c urrent smoker Tobacco use other than smoking A re you an other tobacco user? Y es Vape D rugs/Alcohol: D rugs H ave you used drugs other than those for medical reasons in the past 12 months? N o Alcohol Screen (Audit-C) D id you have a drink containing alcohol in the past year? N o P oints 0 I nterpretation N egative Caffeine I ntake: 2 -3 cups per day Everyday, soda Do you smoke marijuana?: Denies. M iscellaneous: E xercise: Patient exercises. V ape. * Medications: T aking Vitamin , Taking Ondansetron 8 MG Tablet Disintegrating Oral , Not-Taking Aviane 0.1-20 MG-MCG Tablet 1 tablet Orally Once a day , Not-Taking buPROPion HCl ER (XL) 150 MG Tablet Extended Release 24 Hour Oral , Not-Taking LORazepam 0.5 MG Tablet TAKE 0.5-1 TABLETS (0.25-0.5 MG) BY MOUTH 2 TIMES DAILY IF NEEDED FOR ANXIETY. Oral , Not-Taking Ocella 3-0.03 MG Tablet 1 tablet Orally [...] 1 TABLET BY MOUTH EVERY DAY Oral , Medication List reviewed and reconciled with the patient * Allergies: A moxicillin: rash, Penicillin: rash, Monistat 1 Combo Pack: anaphylaxis. Objective: * Vitals: H t: 67.5 in, Wt:171lbs, BP:120/86mm Hg, BMI:26.38Index. * Examination: * General Examination: GENERAL APPEARANCE: i n no acute distress, alert, well hydrated, in no distress. Assessment: * Assessment: 1. C yst of ovary, unspecified laterality - N83.209 (Primary) 2 . P regnancy with inconclusive viability, single or unspecified fetus - O36.80X0 Plan: * Treatment: * Preventive Medicine: YOUR PREVENTIVE WELLNESS PLAN: B reast Cancer Screening (Mammogram): My last mammogram was done on: N ever, Under 40yrs O steoporosis Screening (Bone Density Measurement): My last bone density was done on: N ever, Under 65yr C olorectal Cancer Screening: Last Done Colonoscopy N ever, Under 45yr * Images: Billing Information: * Visit Code: 95699 Office Visit, Est Pt., Level 3. * Procedure Codes: * Sign off status: Completed true * Provider: Gracia Guzman MD Date: 0 02/22/2025 Generated for Paulette freeman/Evans/Ivannasmitting on: 0 03/21/2025 05:37 PM CDT History and Physical Notes * HPI (History of Present Illness) Category Sub-Category Detail Notes Category Not es *General Patient presenting for ultrasound follow up. She had a suprise when she went to the ER and primary. She isn't having any bleeding at this time. She is planning to deliver at [place]. She has appointment saturday with them. LEBRON: 25: 7+1. Examination Category Sub-Category Detail Notes Category Not es *General Examination GENERAL APPEARANCE: in no a cute distress, alert, well hydrated, in no distress
--- OUTSIDE RECORDS SUMMARY | 2025-03-21 17:37 | XMS_ITS | Patient Health Record ---
Author Organization [facility] Address [address] [place] [address] Care Team Providers Care Metal Neutralizer Name Role Phone None, No PCP Primary Care Provider UnavailNino Baker Unavailable [phone] Yuliana Godinez Unavailable [phone] Nanci Lynn Unavailable Allergies Allergen (clinical drug ingredient) Drug/Non Drug Allergy documented on EMR Reaction Allergy Type Onset Date Status miconazole Monistat 1 Combo Pack anaphylaxis Drug Allergy Active amoxicillin Amoxicillin rash Drug Allergy Act domo Penicillin rash Drug Allergy Active Results Component Value Reference Range Notes HEMOGLOBIN A1c Reviewed date:01/05/2025 08:39:51 AM Interpretation: Performing Lab:[facility], [facility] [address], [facility] Pavel Ervin Notes/Report: HEMOGLOBIN A1c 5.3 <5.7 [...] diagnosis of diabetes in children. According to [place] Diabetes Association (ADA) guidelines, hemoglobin A1c <7.0% represents optimal control in non- diabetic patients. Different metrics may apply to specific patient populations. Standards of Medical Care in Diabetes(ADA). T4, Free (IH) Reviewed date:01/05/2025 12:08:39 PM Interpretation: Performing Lab: Notes/Report: Access 2 ([id number]), [place] - Lab T3, Free (IH) Reviewed date:01/05/2025 12:08:25 PM Interpretation: Performing Lab: Notes/Report: Access 2 ([id number]), [place] - Lab TSH (IH) Reviewed date:01/05/2025 12:09:06 PM Interpretation: Performing Lab: Notes/Report: Access 2 ([id number]), [place] - Lab Reason For Referral Reason [facility]iver[facility] 01/20 Diagnosis 1 Low back pain (M54.5 0) Diagnosis 2 state (Z3 9.2) Referral Organization [facility] Referring Provider First Name Nanci Referring Provider Last Name Skyla Stoner er Referring Provider Speciality Obstetrici an and financial operations analyst Referred Provider Specialty Physical The rapist General Notes Laura Lynn 01/04/2025 01:49:47 PM EVENTS ASSISTANT > lower back pain post , physical therapy referral [place] Clinical Notes Nic Palma 01/2025 02:29:10 PM > Referral made and faxed to Lucian using [phone] for phone and [phone] for [place] fax., Nic Palma 01/12/2025 11:23:54 AM > Lucian reached out [...] new referral if wanting to be seen [facility] Referral Priority Routine Medications Medication SIG (Take, [...] ape Section Notes: Vape Vape Vape Vape Vape Problems Problem Type SNOMED Code ICD Code Onset Dates Problem Status W/U Status Risk Notes Problem [id number] Abnormal uterine bleeding (N93.9) Active confirmed Vital Signs Blood pressure diastolic 86 mm Hg 02/22/2025 Height 67.5 in 02/22/2025 Blood pressure systolic 120 mm Hg 02/22/2025 Weight 171 lbs 02/22/2025 BMI 26.38 kg/m2 02/22/2025 Encounters Encounter Location Date Provider Diagnosis [address] [address] 01/04/2025 Nanci Lease Stecher Cyst of ovary, unspecified laterality N83.209 and Abnormal uterine bleeding N93.[address] [address] 07/15/2024 Yuliana Godinez Oral contraceptive prescribed Z30.011 and Counseling for initiation of control method Z30.[address] [address] 02/22/2025 Nanci Lease Stecher Cyst of ovary, unspecified laterality N83.209 and with inconclusive viability, single or unspecified fetus O36.80X0 [facility] [address] [place] [address] 01/04/2025 Nanci Guzman Abnormal uterine bleeding N93.9 [facility] [address] [place] [address] 02/22/2025 Nanci Guzman Encounter for supervision of other normal , unspecified trimester Z34.80 [facility] [address] [place] [address] [place] [phone] 01/11/2025 Nanci Guzman [facility] [address] [place] [address] 01/04/2025 Nino Dave [facility] [address] [place] [address] [place] [phone] 11/05/2024 Yuliana Godinez Assessments Encounter Date Diagnosis (ICD Code) Assessment Notes Treatment Notes Treatment Clinical Notes Section Notes 01/04/2025 Abnormal uterine bleeding (ICD-10 - N93.9) 01/04/2025 Cyst of ovary, unspecified laterality (ICD-10 - N83.209) 01/04/2025 Abnormal uterine bleeding (ICD-10 - N93.9) 02/22/2025 Encounter for supervision of other normal , unspecified trimester (ICD-10 - Z34.80) 02/22/2025 Cyst of ovary, unspecified laterality (ICD-10 - N83.209) 02/22/2025 with inconclusive viability, single or unspecified fetus (ICD-10 - O36.80X0) 07/15/2024 Oral contraceptive prescribed (ICD-10 - Z30.011) 07/15/2024 Counseling for initiation of control method (ICD-10 - Z30.09) 07/15/2024 Other Discussed R/B/A for all available control options. Will send in aviane OCP which is a lower dose pill and will hopefully eliminate her unwanted side effects. Rx x 1 year however patient to call with 3 month update if concerns. 01/04/2025 Other 1. Menorrhagia and irregular bleeding: hgba1c and thyroid testing 2. Repeat ultrasound in 8 weeks 3. Referral to PT due to back pain since 4. Change control at this time, will trial ocella 02/22/2025 Other 1. She is planning to deliver at [place]. She will contact us for records. 2. Discussed ultrasound Plan Of Treatment No Information Insurance Providers Payer Name Payer Address Payer Phone Subscriber Number Group Number Insured Name Patient Relationship to Insured Coverage Start Date Coverage End Date [place] (Ins Bill) [address] [address] [place] [address] [id number] Tiana Etienne Self - patient is the insured Medical (General) History Medical History History ICD Code depression/ anxiety anemia bladder infections asthma Surgical History Surgery Date(Month/Year) wisdom teeth extraction
--- OUTSIDE RECORDS SUMMARY | 2025-03-21 17:37 | XMS_ITS | Encounter Summary ---
Author Organization [facility] Address [address] [place] [address]. [place] [address] Care Team Providers Care Quiller Tender Name Role Phone [facility] Primary Care Provider + Encounter Details Date Type Department Care Team (Latest Contact Info) Description 02/08/2025 Travel Social History Tobacco Use Types Packs/Day Years Used Date Smoking Tobacco: Every Day Cigarettes Vaping Device Smokeless Tobacco: Never Alcohol Use Standard Drinks/Week Comments No 0 (1 standard drink = 0.6 oz pur e alcohol) in past [place] Depression Scale Answer Date Recorded Last EPDS Total Score Not on file 08/08/2022 The thought of harming myself has occurred to me . 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
--- OUTSIDE RECORDS SUMMARY | 2025-03-21 17:37 | XMS_ITS | Encounter Summary ---
Author Organization [facility] Address [address] [place] [address]. [place] [address] Care Team Providers Care Roller Turner Name Role Phone [facility], [facility] Primary Care Provider + Reason for Visit * Reason Comments Abdominal Pain Encounter Details Date Type Department Care Team (Late st Contact Info) Description 02/08/2025 9:48 AM CDT - 02/08/2025 12:33 PM CDT Emergency [facility] Emergency Dept [address] [place] [address] [phone] Barbra Haji MD [facility] [address] [place], [place] [address] Early stage of ; Acute bilateral low back pain without sciatica Discharge Disposition: Home or Self Care Social History Tobacco Use Types Packs/Day Years Used Date Smoking Tobacco: Every Day Cigarettes Vaping Device Smokeless Tobacco: Never Alcohol Use Standard Drinks/Week Comments No 0 (1 standard drink = 0.6 oz pur e alcohol) in past [place] Depression Scale Answer Date Recorded Last EPDS Total Score Not on file 08/08/2022 The thought of harming myself has occurred to me . 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 Your back pain is likely muscular, you can use ice, heat, stretching exercises, Tylenol and physical therapy and avoid ibuprofen * Attachments The following attachments cannot be sent through Care Everywhere. * Low Back Pain: Keep Moving: Video ([place]) * : Managing Back Pain: Video ([place]) documented in this encounter Medications at Time [...] Bilirubin Urine Negative Ketones Urine Negative Specific [place] Urine 1.024 Blood Urine Negative pH Urine [...] this point but she can follow-up with LOGISTIC MANAGER in several weeks for repeat ultrasound. [...] 02/08/2025 11:21 AM CDT [facility] Specific [place] Urine 1.024 1.003 - 1.035 02/08/2025 11:21 [...] LAB - URINE ORDERABLES Final Result LABORATORY [facility] Acute Care Lab [address] Lab (1st floor, no room number) [place] [address] * US OB 1st Trimester [...] 1ST TRIMESTER W TRANSVAGINAL W DOPPLER LOCATION: [facility] DATE: 02/08/2025 INDICATION: Abdominal and back pain. [...] 1ST TRIMESTER W TRANSVAGINAL W DOPPLER LOCATION: [facility] DATE: 02/08/2025 INDICATION: Abdominal and back pain. [...] MD LAB - BLOOD ORDERABLES Final Result [facility] Lab [address] Lab (1st floor, no room number) [address] * Extra Blue Top Tube (02/08/2025 10:18 AM CDT) [facility] Signature Hold Specimen [facility] 02/08/2025 11:31 AM CDT LABORATORY Blood STRUCTURE OF RIGHT UPPER LIMB / Unknown Venipuncture / Unknown 02/08/2025 10:18 AM CDT 02/08/2025 10:29 AM CDT us Barbra Haji MD LAB - BLOOD ORDERABLES Final Result [facility] Lab [address] Lab (1st floor, no room number) [address] * (ABNORMAL) HCG QUANTitative (blood) (02/08/2025 10:18 AM CDT) [facility] hCG Quantitative 6,404(H) <5 mIU/mL 02/09/20 10:58 AM CDT [facility] Comment: Adult: 0-5 mIU/mL for healthy non- person Neonates: Should be within normal ranges by 2 days after Blood STRUCTURE OF RIGHT UPPER LIMB / Unknown Venipuncture / Unknown 02/08/2025 10:18 AM CDT 02/08/2025 10:29 AM CDT Barbra Haji MD LAB - BLOOD ORDERABLES Final Result [facility] Acute Care Lab [email or web address] Lab (1st floor, no room number) [place] [address] * Hemoglobin (02/08/2025 10:18 AM CDT) Hemoglobin 14.0 11.7 - 15.7 g/dL 02/08/2025 10:33 AM CDT LABORATORY Blood STRUCTURE OF RIGHT UPPER LIMB / Unknown Venipuncture / Unknown 02/08/2025 10:18 AM CDT 02/08/2025 10:29 AM CDT Barbra Haji MD LAB - BLOOD ORDERABLES Final Result Performing Organization Address City/[facility]/ZIP Co de Phone Number [facility] Care Lab [address] Lab (1st floor, no room number) [place] [phone] documented in this encounter Visit [...] RN) documented in this encounter Care Teams Roller Turner Relationship Specialty Start Date End Date [facility], [facility] [address] [place] [address] PCP - General 02/08/25 documented as of this encounter
--- OUTSIDE RECORDS SUMMARY | 2025-03-21 17:37 | XMS_ITS | Clinical Summary ---
Author Organization [place] Address [address] [place] [address]. [place] [address] Care Team Providers Care Accredited Pharmacy Technician Name Role Phone [facility], [facility] Primary Care Provider + Allergies Active Allergy [...] CDT - 02/08/2025 12:33 PM CDT Emergency [facility] Emergency Dept [address] [place] [phone] Barbra Haji MD Early stage of ; Acute bilateral low back pain without sciatica Discharge Disposition: Home or Self Care 02/08/2025 Travel from Last 3 Months Immunizations Immunization Administration Dates Next Due DTAP (<7y) 02/07/2005 [...] 0.6 oz pur e alcohol) in past [place] Depression Scale Answer Date Recorded Last EPDS Total Score Not on file 08/08/2022 The thought of harming myself has occurred to me . 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 Gender Identity Not on file Sexual Orientation [...] history exists COVID-19 Vaccine ( season) 2024 PHQ-2 (once per calendar year) 2024 INFLUENZA VACCINE (Season Ended) 2025 YEARLY PREVENTIVE VISIT 07/20/2025 07/20/2024, 07/20 PAP [...] 02/08/2025 11:21 AM CDT [facility] Specific [place] Urine 1.024 1.003 - 1.035 02/08/2025 11:21 [...] LAB - URINE ORDERABLES Final Result LABORATORY [facility] [address] Lab (1st floor, no room number) [place] [address], [facility] * US OB 1st Trimester W Transvaginal [...] 1ST TRIMESTER W TRANSVAGINAL W DOPPLER LOCATION: [facility] DATE: 02/08/2025 INDICATION: Abdominal and back [...] 1ST TRIMESTER W TRANSVAGINAL W DOPPLER LOCATION: [facility] DATE: 02/08/2025 INDICATION: Abdominal and back [...] MD LAB - BLOOD ORDERABLES Final Result [facility] Acute Care Lab [address] Lab (1st floor, no room number) [place] [address], [facility] * Extra Blue Top Tube (02/08/2025 10:18 AM CDT) Hold Specimen [facility] 02/08/2025 11:31 AM CDT [facility] Blood STRUCTURE OF RIGHT UPPER LIMB / Unknown Venipuncture / Unknown 02/08/2025 10:18 AM CDT 02/08/2025 10:29 AM CDT us Barbra Haji MD LAB - BLOOD ORDERABLES Final Result [facility] Lab [address] Lab (1st floor, no room number) [place] [address], [facility] * Hemoglobin (02/08/2025 10:18 AM CDT) Hemoglobin 14.0 11.7 - 15.7 g/dL 02/08/2025 10:33 AM CDT LABORATORY Blood STRUCTURE OF RIGHT UPPER LIMB / Unknown Venipuncture / Unknown 02/08/2025 10:18 AM CDT 02/08/2025 10:29 AM CDT us Barbra Haji MD LAB - BLOOD ORDERABLES Final Result [facility] Care Lab [address] Lab (1st floor, no room number) [place] [address] * (ABNORMAL) HCG QUANTitative (blood) (02/08/2025 10:18 AM CDT) [facility] hCG Quantitative 6,404(H) <5 mIU/mL 02/09/20 10:58 AM CDT LABORATORY Comment: Adult: 0-5 mIU/mL for healthy non- person Neonates: Should be within normal ranges by 2 days after Blood STRUCTURE OF RIGHT UPPER LIMB / Unknown Venipuncture / Unknown 02/08/2025 10:18 AM CDT 02/08/2025 10:29 AM CDT us Barbra Haji MD LAB - BLOOD ORDERABLES Final Result [facility] LABORATORY [facility] [address] Lab (1st floor, no room number) [place] [address] * HIV-1 Antibody (External Result) (05/21/2022 12:00 PM CDT) [facility] HIV 1&2 Antibody (External) Nonreactive Nonreactive EXTERNAL LAB 05/21/2022 12:0 0 PM CDT us Patient Reported LAB - HIM EXTERNAL RESULT Final Result EXTERNAL LAB External Lab * CHLAMYDIA TRACHOMATIS PCR (05/28/2017 11:45 AM CDT) [facility] Specimen Description [facility] Chlamydia Trachomatis PCR Negative Negative for C. trachomatis rRNA by laser specialist mediated amplification. A negative result by laser specialist mediated amplification does not preclude the presence of C. trachomatis infection because results are dependent on proper and adequate collection, absence of inhibitors, and sufficient rRNA to be detected. [facility] Cervical swab (specimen) 05/28/2017 11:45 AM CDT 05/28/2017 12:46 PM CDT us Que Monteiro MD LAB - MICRO GENERAL ORDER CHIN Final Result [facility] [address] [place] [address], [facility] [address] [place] [address] from Last 3 Months or Most Recently Relevant to Health Maintenance Insurance [id number] [place] [id number] [employer] [place] [address] [place] [id number] [employer] [place] Advance Directives For more information, please contact: [phone] * Full Code (Latest Code Status on [...] harsh nt/ legal decision maker Care Teams Accredited Pharmacy Technician Relationship Specialty Start Date End Date [facility] [address] [place] [address] PCP - General 02/08/25
--- OUTSIDE RECORDS SUMMARY | 2025-03-21 17:37 | XMS_ITS | Clinical Summary ---
Author Organization [facility] Address [address] [place] [address] Care Team Providers Care Caul Fat Puller Name Role Phone [facility] - Primary Care Provider Allergies Active Allergy Reactions Criticality Noted Date Comments Amoxicillin Hives 09/25/2016 Miconazole Edema 06/01/2017 Mupirocin Rash Low 12/03/2016 Worsening erythema, blistering on skin with topical application. Naproxen Hives 03/19/2021 Penicillins Hives 10/11/2019 Medications buPROPion (WELLBUTRIN XL) 150 mg Extended-Release tabletIndications:A nxiety and depression Take 1 Tablet (150 mg) by mouth once daily. 30 Tablet 5 5 Active LORazepam (ATIVAN) 0.5 mg tabIndications:Anxi ety and depression Take 0.5-1 Tablets (0.25-0.5 mg) by mouth 2 times daily if needed for Anxiety. 15 Tablet 5 Active ondansetron (ZOFRAN ODT) 8 mg disintegrating tabletIndications:N ausea and vomiting, unspecified vomiting type Place 1 Tablet (8 mg) on the tongue every 8 hours if needed for Nausea/Vomit ing. 30 Tablet 5 Active Active Problems Problem Noted Date Diagnosed Date Anxiety and depression 08/27/2024 Anxiety 07/20/2024 Exercise-induced asthma 07/22/2017 Comments Yes Encounters Date Type Department Care Team Description 03/08/[address] [address] Kervin Neri PA Refill Request (ondansetron (ZOFRAN ODT) 8 mg disintegrating tablet) 02/11/2025 1:45 PM CDT Orders Only [address] [address] Lab 02/11/2025 1:15 PM CDT Telemedicine [address] [address] Joan Reed PA Telehealth (Follow up ER visit) 02/11/2025 Travel 01/07/[address] [address] Kervin Neri PA Refill Request (Bupropion/) from Last 3 Months Immunizations Immunization Administration [...] on file Legal Sex Female 5:42 AM DAIRY SPECIALIST Gender Identity Not on file Sexual [...] Comments Blood Pressure 102/78 12/16/2024 2:06 PM DAIRY SPECIALIST Pulse 106 12/16/2024 2:06 PM DAIRY SPECIALIST Temperature 36.6 C (97.8 F) 12/14/2024 8:30 AM DAIRY SPECIALIST Respiratory Rate 17 12/14/2024 8:30 AM DAIRY SPECIALIST Oxygen Saturation 100% 12/16/2024 2:06 PM DAIRY SPECIALIST Inhaled Oxygen Concentration - - Weight 80.2 kg (176 lb 14.4 oz) 12/16/2024 2:06 PM DAIRY SPECIALIST Height 175.3 cm (5' 9) 12/14/2024 9:05 AM DAIRY SPECIALIST Body Mass Index 26.12 12/14/2024 9:05 AM DAIRY SPECIALIST Plan of Treatment Health Maintenance Due Date Last Done Comments HIV for age 15-65 2015 HPV series for age 9-26 (1 - 3-dose series) 2015 Chlamydia for age 16-24 2016 Hepatitis C screening for age 18-79 2018 Tetanus booster 07/01/2022 07/01/2012, 06/01/2003 COVID-19 vaccine series (2023- season) 2024 Influenza Vaccine (Season Ended) 2025 BMI (ht and wt on same day) for age 18+ 08/27/2025 08/27/2024, 07/20/2024, 07/29/2021, Additional history exists Depression screening for age 12+ 12/16/2025 12/16/2024 Pap test for age 21-65 07/21/2027 (Verified in Care Everywhere or Patient Record) RSV vaccine for adults or (1 - 1-dose 75+ series) 2075 Tdap Completed 07/01/2012 Pneumococcal series for age 6-49 Aged Out No longer eligible based on patient's age to complete this topic Procedures Procedure Name Priority Date/Time Associated Diagnosis Comments HCG BETA QUANT, Routine 02/11/2025 1:51 PM CDT Early stage of (HC) from Last 3 Months Results * HCG BETA QUANT, (02/11/2025 1:51 PM CDT) HCG BETA QUANT,PREGNANC Y 19,070 mIU/mL 02/11/2025 11:01 PM CDT [facility] Blood BLOOD SPECIMEN / Unknown [facility] / Unknown 02/11/2025 1:51 PM CDT 02/11/2025 1:51 PM CDT Narrative [facility] - 02/11/2025 11:01 PM CDT Expected Value [...] us Joan BUTLER CHEMISTRY Final Resu lt [facility] [address] [place] [id number], [place] from Last 3 Months Insurance [id number] [facility] [address] [place] [id number] [facility], [facility] [address] [place] [id number] [facility] [id number] [facility] [place] [id number] Care Teams Caul Fat Puller Relationship Specialty Start Date End Date [facility] - [address] [place] [id number] PCP - General 12/25/21
--- OUTSIDE RECORDS SUMMARY | 2025-03-21 17:38 | XMS_ITS | Encounter Summary ---
Author Organization [place] Address [address] [place] [address]. [place] [address] Care Team Providers Care Demo Event Specialist Name Role Phone Marlyn Brown MD Primary Care Provider Unavailable April Guzman MD Primary Care Provider [phone] Que Monteiro MD Unavailable Unavaila ble Que Monteiro MD Unavailable Unavaila ble No Ref-Primary, Physician Primary Care Provider GynecologySis Obstetrics & Primary C are Provider Unavailable No Ref-Primary, Physician Primary Care Provider [facility] Primary Care Provider + Reason for Visit * Reason Onset Date Comments MH/CD Inpatient 08/20/2016 Encounter Details Date Type Department Care Team (Late st Contact Info) Description 08/20/2016 Telephone [facility] Behavioral Health Intake [address] [place] [address] Generic, Behavioral Intake, MH/CD Inpatient Social History Tobacco Use Types Packs/Day Years Used Date Smoking Tobacco: Former Alcohol Use Standard Drinks/Week Comments No 0 (1 standard drink = 0.6 oz pur e alcohol) in past [place] Depression Scale Answer Date Recorded Last EPDS Total Score Not on file 08/08/2022 The thought of harming myself has occurred to me . Never 08/08/2022 Adolescent Education Answer Date Record ed Getting School Help Needed Not on file 08/20 Comments No Sex and Gender Information Value Date Recorded Sex Assigned at Not on file Legal Sex Female 4:25 AM HYDRAULIC MECHANIC Gender Identity Not on file Sexual Orientation Not on file COVID-19 Exposure Response Date Recorded In the last 10 days, have yo u been in contact with someone who was confirmed or suspected to have Coronavirus/COVID-19? No / Unsure 08/03/2022 10:02 PM CDT documented as of this encounter Miscellaneous Notes * Telephone Encounter - Néstor Vna - 08/20/2016 11:22 AM CDT [facility] pt to [facility]. B: pt admitted to staff she was si w/ no cont for safety. Pt making statements she does not Want to live, not divulging precipitators or stressors. Dad bringing pt to er. Pt has hx etoh and mj use, last Use Saturday 08/18. Pt to be seen by [facility] for inpt need. documented in this encounter Plan of Treatment Not on file documented as of this encounter Visit Diagnoses Not on filedocumented in this encounter Additional Health Concerns Infection Onset Date Last Indicated Resolved Time Influenza 11/06/2023 11/06/2023 11/13/2023 11:3 9 PM HYDRAULIC MECHANIC Rule Out COVID-19 08/05/2024 08/05/2024 08/06/2024 11:55 AM CDT documented as of this encounter Care Teams Demo Event Specialist Relationship Specialty Start Date End Date Marlyn Brown MD PCP - General Pediatrics 07/26/16 08/27/16 April Guzman MD [address] [place] [address] PCP - General furniture technician 08/28/16 07/18/19 Que Monteiro MD PCP - Assigned PCP 06/30/17 01/06/19 No Ref-Primary, Physician PCP - General 07/19/19 12/26/21 GynecologySis Obstetrics & PCP - General furniture technician 12/27/21 02/12/23 No Ref-Primary, Physician PCP - General 11/06/23 02/07/[address] [address] PCP - General 02/08/25 Que Monteiro MD Assigned PCP 06/30/17 05/28/20 documented as of this encounter
--- OUTSIDE RECORDS SUMMARY | 2025-03-21 17:38 | XMS_ITS | Encounter Summary ---
Author Organization [place] Address [facility] [place] [address] Care Team Providers Care Milling/Polishing Operator Name Role Phone Dakotah Winslow MD Primary Care Provider [phone] Marlyn Brown MD Primary Care Provider Unavailable April Guzman MD Primary Care Provider [phone] Que Monteiro MD Unavailable Unavaila ble Que Monteiro MD Unavailable Unavaila ble No Ref-Primary, Physician Primary Care Provider Gynecology, Sis [facility] Obstetrics & Primary C are Provider Unavailable No Ref-Primary, Physician Primary Care Provider [facility] Primary Care Provider + Reason for Visit * Reason Onset Date Comments Outpatient 11/11/2014 iop Other Encounter Details Date Type Department Care Team (Late st Contact Info) Description 11/11/2014 Telephone [facility] Behavior[facility] Health Intake [address] [place] [address] Generic, Behavioral IntakeMD Outpatient (iop); Social History Tobacco Use Types Packs/Day Years Used Date Smoking Tobacco: Never Assessed [place] Depression Scale Answer Date Recorded Last EPDS Total Score Not on file 08/08/2022 The thought of harming myself has occurred to me . Never 08/08/2022 Adolescent Education Answer Date Record ed Getting School Help Needed Not on file 08/20 Comments No Sex and Gender Information Value Date Recorded Sex Assigned at Not on file Legal Sex Female 4:25 AM PATTERN GENERATOR OPERATOR Gender Identity Not on file Sexual [...] Lau RN sent at 11/26/2014 12:23 PM PATTERN GENERATOR OPERATOR ----- Regarding: Take off wait list, referral no longer interested Please take off wait list, no longer interested, going to [facility]. ERN GENERATOR OPERATOR * Telephone Encounter - Sheila Trivedi - 11/11/2014 10:15 AM CST recvd order from dr coronado/4A for referral to [facility]; completed. ERN GENERATOR OPERATOR documented in this encounter Plan of Treatment Not on file documented as of this encounter Visit Diagnoses Not on filedocumented in this encounter Additional Health Concerns Infection Onset Date Last Indicated Resolved Time Influenza 11/06/2023 11/06/2023 11/13/2023 11:3 9 PM PATTERN GENERATOR OPERATOR Rule Out COVID-19 08/05/2024 08/05/2024 08/06/2024 11:55 AM CDT documented as of this encounter Care Teams Milling/Polishing Operator Relationship Specialty Start Date End Date Dakotah Winslow MD [facility] [address] [place], [place] PCP - General Family Practice 10/29/13 07/25/16 Marlyn Brown MD [facility] [address] [facility] [place] [address] PCP - General Pediatrics 07/26/16 08/27/16 April Guzman [place] [address] PCP - General block piler 08/28/16 07/18/19 Que Monteiro MD PCP - Assigned PCP 06/30/17 01/06/19 No Ref-Primary, Physician PCP - General 07/19/19 12/26/21 GynecologySis Obstetrics & PCP - General block piler 12/27/21 02/12/23 No Ref-Primary, Physician PCP - General 11/06/23 02/07/25 [facility] [id number] [place] [id number] PCP - General 02/08/25 Que Monteiro MD Assigned PCP 06/30/17 05/28/20 documented as of this encounter
--- OUTSIDE RECORDS SUMMARY | 2025-03-21 17:38 | XMS_ITS | Encounter Summary ---
Author Organization [place] Address [address] [place] [address]. [place] [address] Care Team Providers Care Bin Operator Name Role Phone GynecologySis Obstetrics & Primary C are Provider Unavailable No Ref-Primary, Physician Primary Care Provider [facility], [facility] Primary Care Provider + Encounter Details Date Type Department Care Team (Late st Contact Info) Description 12/27/2021 Documentation Only INTERFACED REPORT Unknown, Provider Social History Tobacco Use Types Packs/Day Years Used Date Smoking Tobacco: Every Day Cigarettes Vaping Device Smokeless Tobacco: Never Alcohol Use Standard Drinks/Week Comments No 0 (1 standard drink = 0.6 oz pur e alcohol) in past [place] Depression Scale Answer Date Recorded Last EPDS Total Score Not on file 08/08/2022 The thought of harming myself has occurred to me . Never 08/08/2022 Adolescent Education Answer Date Record ed Getting School Help Needed Not on file 08/20 Comments Yes Sex and Gender Information Value Date Recorded Sex Assigned at Not on file Legal Sex Female 4:25 AM SHOE PATTERNMAKER Gender Identity Not on file Sexual Orientation Not on file COVID-19 Exposure Response Date Recorded In the last 10 days, have yo u been in contact with someone who was confirmed or suspected to have Coronavirus/COVID-19? No / Unsure 08/03/2022 10:02 PM CDT documented as of this encounter Plan of Treatment Not on file documented as of this encounter Visit Diagnoses Not on filedocumented in this encounter Additional Health Concerns Infection Onset Date Last Indicated Resolved Time Influenza 11/06/2023 11/06/2023 11/13/2023 11:3 9 PM SHOE PATTERNMAKER Rule Out COVID-19 08/05/2024 08/05/2024 08/06/2024 11:55 AM CDT documented as of this encounter Care Teams Bin Operator Relationship Specialty Start Date End Date GynecologySis Obstetrics & PCP - General psychological operations officer 12/27/21 02/12/23 No Ref-Primary, Physician PCP - General 11/06/23 02/07/25 [facility] [address] [place] [phone] PCP - General 02/08/25 documented as of this encounter
== END 2025-03-20 22:10 | disposition home or self-care (01) ==
PROVIDERS: Emergency Provider Student in an Organized Health Care Education/Training Program
DX: O21.0 Mild hyperemesis gravidarum (principal); Z3A.11 11 weeks gestation of pregnancy; O23.41 Unspecified infection of urinary tract in pregnancy, first trimester
CPT/HCPCS: 36415; 80053; 81001; 85025; 87086; 87631; 96374; 99284; J2405; J7120